=== PATIENT | male | born 1945 | race Caucasian/White ===

== ENCOUNTER 2019-07-05 01:10 | Inpatient (IN) ==
[2019-07-05] MEDS ORDERED: Albuterol 2.5 MG/3 ML NEBULIZER IH PRN (04:39)
[2019-07-05] MEDS ORDERED: *HR* LORazepam 2 MG/ML VIAL IVP PRN ×3 (04:39)
[2019-07-05] MEDS ORDERED: Naloxone 0.4 MG/ML INJ IVP PRN (04:39)
[2019-07-05] MEDS ORDERED: Ringers Solution, Lactated 1,000 ML IVC SCH (04:45)
[2019-07-05] MEDS ORDERED: Potassium Chloride Elixir 20 MEQ/15 ML UDC PO ONE (04:57)
[2019-07-05] MEDS: cefTRIAXone 2,000 MG in Water for inj. (sterile) 20 ML IVP SCH (05:24)
[2019-07-05] MEDS ORDERED: Vancomycin (wt based) 1,000 MG VIAL IVPB SCH (06:00)
[2019-07-05 06:14] LABS: Basophils # 0.1 K/mcL (0.0-0.2); Basophils % 0.4 %; Eosinophils # 0.1 K/mcL (0.0-0.6); Eosinophils % 0.7 %; Hematocrit 33.3 % (37.5-50.1); Hemoglobin 11.6 g/dL (12.9-16.9); Immature Granulocytes % 0.6 % (0-4); Immature Reticulocyte % 10.8 % (11.0-38.0); Lymphocytes # 0.8 K/mcL (0.6-4.6); Lymphocytes % 5.7 %; Mean Corpuscular HGB Conc 34.8 g/dL (31.6-35.5); Mean Corpuscular Hemoglobin 33.1 pg (28.0-33.3); Mean Corpuscular Volume 95.1 fL (83.0-100.0); Mean Platelet Volume 9.2 fL (9.4-12.4); Monocytes # 1.4 K/mcL (0.0-1.3); Monocytes % 10.1 %; Neutrophils # 11.5 K/mcL (1.6-8.9); Platelet Count 488 K/mcL (140-400); Red Cell Distribution Width 12.3 % (11.5-14.5); Retculocyte # 0.08 M/mcL (0.05-0.10); Reticulocyte % 2.2 % (1.6-2.8); Segmented Neutrophils % 82.5 %; White Blood Count 13.9 K/mcL (4.3-11.1)
[2019-07-05 06:36] LABS: BUN/Creatinine Ratio 16 (6-26); Blood Urea Nitrogen 12 mg/dL (8-23); Calcium 8.8 mg/dL (8.6-10.3); Carbon Dioxide 28 mEq/L (23-29); Chloride 87 mEq/L (98-107); Glucose 110 mg/dL (70-105); Osmolality,Calculated 260 (280-300); Potassium 3.8 mEq/L (3.5-5.1); Sodium 125 mEq/L (136-145); eGFR For African Americans > 60 (> 60); eGFR For Non-African Americans > 60 (> 60)
[2019-07-05 06:39] LABS: % Iron Saturation 9 % (20-55); Alanine Aminotransferase 14 Units/L (7-52); Albumin 3.8 g/dL (3.5-5.7); Albumin/Globulin Ratio 1.2 (1.1-2.2); Alkaline Phosphatase 59 Units/L (34-104); Aspartate Amino Transferase 20 Units/L (13-39); BUN/Creatinine Ratio 17 (6-26); Bilirubin,Total 0.8 mg/dL (0.3-1.0); Blood Urea Nitrogen 12 mg/dL (8-23); Calcium 8.9 mg/dL (8.6-10.3); Carbon Dioxide 28 mEq/L (23-29); Chloride 87 mEq/L (98-107); Globulin 3.1 g/dL (2.4-3.5); Glucose 110 mg/dL (70-105); Iron 20 mcg/dL (65-175); Magnesium 1.8 mg/dL (1.6-2.6); Osmolality,Calculated 260 (280-300); Phosphorous 2.7 mg/dL (2.7-4.5); Potassium 3.7 mEq/L (3.5-5.1); Sodium 125 mEq/L (136-145); Total Protein 6.9 g/dL (6.4-8.9); Transferrin 162 mg/dL (203-362); Troponin I < 0.03 ng/mL (< 0.04); eGFR For African Americans > 60 (> 60); eGFR For Non-African Americans > 60 (> 60)
[2019-07-05 06:54] LABS: Ferritin 267 ng/mL (20-250)
[2019-07-05] MEDS: Folic Acid 1 MG TABLET PO SCH (08:27)
[2019-07-05] MEDS: Thiamine (B-1) 100 MG TABLET PO SCH (08:27)
[2019-07-05] MEDS: Vitamin B Complex/Vit C/Vit E 1 EACH TABLET PO SCH (08:27)
[2019-07-05] MEDS: MetroNIDAZOLE 500 MG/100 ML 500 MG/100 ML BAG IVPB SCH ×3 (08:39→23:58)
[2019-07-05 09:38] LABS: C-Reactive Protein 104 mg/L (Less than 10)
[2019-07-05 10:54] LABS: Amphetamine Screen,Urine Negative ng/mL (Cutoff=1000); Barbiturate Screen,Urine Negative ng/mL (Cutoff=200); Benzodiazepines Screen,Urine Negative ng/mL (Cutoff=200); Cannabinoid Screen,Urine Negative ng/mL (Cutoff = 50); Cocaine Screen,Urine Negative ng/mL (Cutoff= 300); Opiate Screen,Urine Negative ng/mL (Cutoff=300); Phencyclidine Screen,Urine Negative ng/mL (Cutoff=25)
[2019-07-05 12:28] LABS: BUN/Creatinine Ratio 14 (6-26); Blood Urea Nitrogen 10 mg/dL (8-23); Carbon Dioxide 27 mEq/L (23-29); Chloride 91 mEq/L (98-107); Glucose 95 mg/dL (70-105); Osmolality,Calculated 261 (280-300); Potassium 3.9 mEq/L (3.5-5.1); Sodium 126 mEq/L (136-145); eGFR For African Americans > 60 (> 60); eGFR For Non-African Americans > 60 (> 60)
[2019-07-05 18:05] LABS: BUN/Creatinine Ratio 13 (6-26); Blood Urea Nitrogen 10 mg/dL (8-23); Calcium 9.4 mg/dL (8.6-10.3); Carbon Dioxide 28 mEq/L (23-29); Chloride 91 mEq/L (98-107); Glucose 119 mg/dL (70-105); Osmolality,Calculated 266 (280-300); Potassium 3.6 mEq/L (3.5-5.1); Sodium 128 mEq/L (136-145); Uric Acid 3.2 mg/dL (2.3-7.6); eGFR For African Americans > 60 (> 60); eGFR For Non-African Americans > 60 (> 60)
[2019-07-05 18:08] LABS: Bilirubin,Urine Small (Negative); Blood,Urine Small (Negative); Clarity,Urine Clear (Clear); Color,Urine Dark Yellow (Yellow); Glucose,Urine (UA) Normal (Normal); Ketones,Urine Negative (Negative); Leukocyte Esterase,Urine Trace (Negative); Nitrite,Urine Negative (Negative); PH,Urine 6.5 pH Units (5.0-8.0); Protein,Urine Trace mg/dL (Neg-Trace); Specific Gravity,Urine 1.025 (1.010-1.025); Urobilinogen,Urine >=8.0 mg/dL (Normal)
[2019-07-05 18:10] LABS: Bacteria,Urine None Seen per hpf (None-Few); Hyaline Casts,Urine None Seen per lpf (None-Few); Squamous Epithelial Cell,Urine Many per lpf (None-Few)
[2019-07-05] MEDS ORDERED: *HR* Heparin 5,000 UNIT/ML VIAL SQ SCH (22:00)
[2019-07-06 04:56] LABS: Basophils # 0.1 K/mcL (0.0-0.2); Basophils % 0.7 %; Eosinophils # 0.2 K/mcL (0.0-0.6); Eosinophils % 1.2 %; Hematocrit 34.6 % (37.5-50.1); Hemoglobin 11.5 g/dL (12.9-16.9); Immature Granulocytes % 1.5 % (0-4); Lymphocytes % 7.5 %; Mean Corpuscular HGB Conc 33.2 g/dL (31.6-35.5); Mean Corpuscular Hemoglobin 32.6 pg (28.0-33.3); Mean Platelet Volume 9.1 fL (9.4-12.4); Monocytes # 1.5 K/mcL (0.0-1.3); Neutrophils # 10.5 K/mcL (1.6-8.9); Platelet Count 480 K/mcL (140-400); Red Blood Count 3.53 M/mcL (4.19-5.50); Red Cell Distribution Width 12.4 % (11.5-14.5); Segmented Neutrophils % 78.1 %; White Blood Count 13.5 K/mcL (4.3-11.1)
[2019-07-06 05:41] LABS: Blood Urea Nitrogen 12 mg/dL (8-23); Chloride 93 mEq/L (98-107); Glucose 105 mg/dL (70-105); Osmolality,Calculated 268 (280-300); Potassium 3.7 mEq/L (3.5-5.1); Sodium 129 mEq/L (136-145)
[2019-07-06] MEDS: cefTRIAXone 2,000 MG in Water for inj. (sterile) 20 ML IVP SCH (06:32)
[2019-07-06 06:41] LABS: BUN/Creatinine Ratio 12 (6-26); Carbon Dioxide 26 mEq/L (23-29); eGFR For African Americans > 60 (> 60); eGFR For Non-African Americans > 60 (> 60)
[2019-07-06] MEDS: MetroNIDAZOLE 500 MG/100 ML 500 MG/100 ML BAG IVPB SCH ×3 (08:00→23:08)
[2019-07-06] MEDS: Folic Acid 1 MG TABLET PO SCH (08:01)
[2019-07-06] MEDS: Thiamine (B-1) 100 MG TABLET PO SCH (08:01)
[2019-07-06] MEDS: Vitamin B Complex/Vit C/Vit E 1 EACH TABLET PO SCH (08:01)
[2019-07-06] MEDS: Budesonide/Formoterol 160/4.5 1 PUFF INH IH SCH (20:09)
[2019-07-07] MEDS: cefTRIAXone 2,000 MG in Water for inj. (sterile) 20 ML IVP SCH (05:03)
[2019-07-07 05:39] LABS: Basophils # 0.1 K/mcL (0.0-0.2); Basophils % 0.7 %; Eosinophils # 0.2 K/mcL (0.0-0.6); Eosinophils % 1.8 %; Hematocrit 32.3 % (37.5-50.1); Hemoglobin 11.3 g/dL (12.9-16.9); Lymphocytes # 0.7 K/mcL (0.6-4.6); Lymphocytes % 7.1 %; Mean Corpuscular Hemoglobin 32.9 pg (28.0-33.3); Mean Corpuscular Volume 94.2 fL (83.0-100.0); Mean Platelet Volume 9.1 fL (9.4-12.4); Monocytes # 1.2 K/mcL (0.0-1.3); Monocytes % 12.3 %; Neutrophils # 7.7 K/mcL (1.6-8.9); Platelet Count 515 K/mcL (140-400); Red Blood Count 3.43 M/mcL (4.19-5.50); Red Cell Distribution Width 12.5 % (11.5-14.5); Segmented Neutrophils % 77.1 %
[2019-07-07 05:51] LABS: Calcium 9.2 mg/dL (8.6-10.3); Potassium 4.2 mEq/L (3.5-5.1)
[2019-07-07] MEDS: Budesonide/Formoterol 160/4.5 1 PUFF INH IH SCH ×2 (07:46→19:38)
[2019-07-07] MEDS ORDERED: 0.9 % Sodium Chloride 500 ML IVC SCH (08:30)
[2019-07-07] MEDS: Metoprolol XL (24 HR) Succ 50 MG TAB.ER.24H PO SCH (09:19)
[2019-07-07] MEDS: Folic Acid 1 MG TABLET PO SCH (09:19)
[2019-07-07] MEDS: Thiamine (B-1) 100 MG TABLET PO SCH (09:19)
[2019-07-07] MEDS: Cyanocobalamin (B-12) 1,000 MCG TABLET PO SCH (09:19)
[2019-07-07] MEDS: Aspirin Enteric Coated 81 MG Tablet PO SCH (09:19)
[2019-07-07] MEDS: Vitamin B Complex/Vit C/Vit E 1 EACH TABLET PO SCH (09:19)
[2019-07-07] MEDS: MetroNIDAZOLE 500 MG/100 ML 500 MG/100 ML BAG IVPB SCH (09:19)
[2019-07-08] MEDS: cefTRIAXone 2,000 MG in Water for inj. (sterile) 20 ML IVP SCH (06:09)
[2019-07-08 06:13] LABS: BUN/Creatinine Ratio 13 (6-26); Blood Urea Nitrogen 17 mg/dL (8-23); Calcium 9.4 mg/dL (8.6-10.3); Carbon Dioxide 29 mEq/L (23-29); Chloride 95 mEq/L (98-107); Glucose 100 mg/dL (70-105); Osmolality,Calculated 278 (280-300); Potassium 3.5 mEq/L (3.5-5.1); Sodium 133 mEq/L (136-145); eGFR For African Americans > 60 (> 60); eGFR For Non-African Americans 55 (> 60)
[2019-07-08] MEDS ORDERED: Aminoglycoside Consult 1 EACH MC ONE (07:30)
[2019-07-08] MEDS: Metoprolol XL (24 HR) Succ 50 MG TAB.ER.24H PO SCH ×2 (08:00→08:10)
[2019-07-08] MEDS: Thiamine (B-1) 100 MG TABLET PO SCH (08:00)
[2019-07-08] MEDS: Aspirin Enteric Coated 81 MG Tablet PO SCH (08:00)
[2019-07-08] MEDS: Vitamin B Complex/Vit C/Vit E 1 EACH TABLET PO SCH (08:01)
[2019-07-08] MEDS: Cyanocobalamin (B-12) 1,000 MCG TABLET PO SCH (08:01)
[2019-07-08] MEDS: Folic Acid 1 MG TABLET PO SCH (08:01)
[2019-07-08] MEDS: Budesonide/Formoterol 160/4.5 1 PUFF INH IH SCH ×2 (10:00→22:29)
[2019-07-08] MEDS: Doxycycline 100 MG in 0.9 % Sodium Chloride Mini Bag 100 ML IVPB SCH (17:48)
[2019-07-09 03:18] LABS: Calcium 9.2 mg/dL (8.6-10.3); Potassium 3.6 mEq/L (3.5-5.1)
[2019-07-09] MEDS: Doxycycline 100 MG in 0.9 % Sodium Chloride Mini Bag 100 ML IVPB SCH ×2 (05:13→18:10)
[2019-07-09] MEDS: Budesonide/Formoterol 160/4.5 1 PUFF INH IH SCH ×2 (07:55→21:53)
[2019-07-09] MEDS: Aspirin Enteric Coated 81 MG Tablet PO SCH (08:36)
[2019-07-09] MEDS: Metoprolol XL (24 HR) Succ 50 MG TAB.ER.24H PO SCH (08:36)
[2019-07-09] MEDS: Folic Acid 1 MG TABLET PO SCH (08:36)
[2019-07-09] MEDS: Thiamine (B-1) 100 MG TABLET PO SCH (08:36)
[2019-07-09] MEDS: Vitamin B Complex/Vit C/Vit E 1 EACH TABLET PO SCH (08:36)
[2019-07-09] MEDS: Cyanocobalamin (B-12) 1,000 MCG TABLET PO SCH (08:36)
[2019-07-10] MEDS ORDERED: amLODIPine 5 MG TABLET PO ONE (05:36)
[2019-07-10 05:54] LABS: BUN/Creatinine Ratio 15 (6-26); Blood Urea Nitrogen 19 mg/dL (8-23); Carbon Dioxide 26 mEq/L (23-29); Chloride 100 mEq/L (98-107); Glucose 108 mg/dL (70-105); Osmolality,Calculated 283 (280-300); Potassium 3.4 mEq/L (3.5-5.1); Sodium 135 mEq/L (136-145); eGFR For African Americans > 60 (> 60); eGFR For Non-African Americans 57 (> 60)
[2019-07-10] MEDS: Doxycycline 100 MG in 0.9 % Sodium Chloride Mini Bag 100 ML IVPB SCH (06:00)
[2019-07-10] MEDS: Cyanocobalamin (B-12) 1,000 MCG TABLET PO SCH (07:32)
[2019-07-10] MEDS: Aspirin Enteric Coated 81 MG Tablet PO SCH (07:32)
[2019-07-10] MEDS: Folic Acid 1 MG TABLET PO SCH (07:32)
[2019-07-10] MEDS: Metoprolol XL (24 HR) Succ 50 MG TAB.ER.24H PO SCH (07:32)
[2019-07-10] MEDS: Thiamine (B-1) 100 MG TABLET PO SCH (07:32)
[2019-07-10] MEDS: Vitamin B Complex/Vit C/Vit E 1 EACH TABLET PO SCH (07:32)
[2019-07-10] MEDS ORDERED: hydroCHLOROthiazide 25 MG TABLET PO SCH (09:00)
[2019-07-10] MEDS: Budesonide/Formoterol 160/4.5 1 PUFF INH IH SCH (11:33)
[2019-07-10 14:16] VITALS: BP 163/82
== END 2019-07-10 15:58 | DRG 603 ==
LOC: CDU → SUATTDRO 02:53 → 3ANU 16:04
PROVIDERS: ADMIT Family Medicine; ATTEND Internal Medicine

== ENCOUNTER 2021-02-19 01:26 | Inpatient (IN) ==
[2021-02-19 01:57] LABS: VBG HCO3 33 mEq/L (21-27); VBG PCO2 63 mmHg (41-51); VBG PH 7.33 pH Units (7.32-7.42); VBG PO2 44 mmHg (25-50)
[2021-02-19 02:21] LABS: BUN/Creatinine Ratio 16 (6-26); Blood Urea Nitrogen 12 mg/dL (8-23); Calcium 9.5 mg/dL (8.6-10.3); Carbon Dioxide 30 mEq/L (23-29); Chloride 89 mEq/L (98-107); Glucose 105 mg/dL (70-105); Osmolality,Calculated 266 (280-300); Potassium 3.7 mEq/L (3.5-5.1); Sodium 128 mEq/L (136-145); Troponin I < 0.03 ng/mL (< 0.04); eGFR For African Americans > 60 (> 60); eGFR For Non-African Americans > 60 (> 60)
[2021-02-19] MEDS ORDERED: Furosemide 40 MG/4 ML VIAL IVP ONE (02:33)
[2021-02-19 02:45] LABS: Hematocrit 42.1 % (37.5-50.1); Hemoglobin 13.7 g/dL (12.9-16.9); Mean Corpuscular HGB Conc 32.5 g/dL (31.6-35.5); Mean Corpuscular Hemoglobin 29.8 pg (28.0-33.3); Mean Corpuscular Volume 91.5 fL (83.0-100.0)
[2021-02-19 02:46] LABS: Platelet Count 307 K/mcL (140-400)
[2021-02-19 02:49] LABS: Basophils % 0.7 %; Eosinophils # 0.3 K/mcL (0.0-0.6); Eosinophils % 4.6 %; Immature Granulocytes % 0.3 % (0-4); Lymphocytes # 0.7 K/mcL (0.6-4.6); Lymphocytes % 12.3 %; Monocytes # 0.7 K/mcL (0.0-1.3); Monocytes % 12.1 %; Neutrophils # 4.2 K/mcL (1.6-8.9)
[2021-02-19] MEDS ORDERED: Ipratropium/Albuterol Neb 3 ML IH ONE (05:24)
[2021-02-19] MEDS ORDERED: methylPREDNISolone 125 MG/2 ML VIAL IVP ONE (05:25)
[2021-02-19] MEDS ORDERED: Ipratropium/Albuterol Neb 3 ML ONE (05:41)
[2021-02-19] MEDS ORDERED: Isovue-370 500 ML BOTTLE IVP ONE (05:58)
[2021-02-19] MEDS ORDERED: Ondansetron 4 MG/2 ML VIAL IVP PRN (07:59)
[2021-02-19] MEDS ORDERED: Melatonin 3 MG TABLET PO PRN (07:59)
[2021-02-19] MEDS ORDERED: Naloxone 0.4 MG/ML INJ IVP PRN (07:59)
[2021-02-19] MEDS ORDERED: Nitroglycerin 0.4 MG TAB.SUBL SL PRN (08:03)
[2021-02-19] MEDS ORDERED: *HR* LORazepam 2 MG/ML VIAL IVP PRN ×3 (08:31)
[2021-02-19 09:15] LABS: Alanine Aminotransferase 14 Units/L (7-52); Albumin/Globulin Ratio 1.2 (1.1-2.2); Alkaline Phosphatase 95 Units/L (34-104); Aspartate Amino Transferase 24 Units/L (13-39); Bilirubin,Direct 0.2 mg/dL (0.0-0.2); Bilirubin,Indirect 0.5 mg/dL (0.0-1.0); Bilirubin,Total 0.7 mg/dL (0.3-1.0); Ethanol < 10 mg/dL (Less than 10); Globulin 3.3 g/dL (2.4-3.5); Total Protein 7.3 g/dL (6.4-8.9)
[2021-02-19 09:27] LABS: Thyroid Stimulating Hormone 1.354 mcIU/mL (0.340-5.600)
[2021-02-19] MEDS: Folic Acid 1 MG TABLET PO SCH (11:32)
[2021-02-19] MEDS: predniSONE 20 MG TABLET PO SCH (11:32)
[2021-02-19] MEDS: Thiamine (B-1) 100 MG TABLET PO SCH (11:32)
[2021-02-19] MEDS: Ipratropium/Albuterol Neb 3 ML IH SCH ×3 (11:43→21:39)
[2021-02-19] MEDS ORDERED: Ipratropium/Albuterol Neb 3 ML IH SCH (12:00)
[2021-02-19] MEDS: *HR* Heparin 5,000 UNIT/ML VIAL SQ SCH (17:15)
[2021-02-19] MEDS: Furosemide 20 MG/2 ML VIAL IVP SCH (17:15)
[2021-02-19 17:33] LABS: Adenovirus Not Detected (Not Detect); Bordetella Pertussis Not Detected (Not Detect); Chlamydophila pneumoniae Not Detected (Not Detect); Coronavirus 229E Not Detected (Not Detect); Coronavirus HKU1 Not Detected (Not Detect); Coronavirus NL63 Not Detected (Not Detect); Coronavirus OC43 Not Detected (Not Detect); Human Metapneumovirus Not Detected (Not Detect); Human Rhinovirus/Enterovirus Not Detected (Not Detect); Influenza A Subtype 2009 H1 Not Detected (Not Detect); Influenza B Not Detected (Not Detect); Mycoplasma pneumoniae Not Detected (Not Detect); Parainfluenza Virus 1 Not Detected (Not Detect); Parainfluenza Virus 2 Not Detected (Not Detect); Parainfluenza Virus 3 Not Detected (Not Detect); Parainfluenza Virus 4 Not Detected (Not Detect); Respiratory Syncytial Virus Not Detected (Not Detect); SARS-CoV-2 Not Detected (Not Detect)
[2021-02-20 03:04] LABS: Basophils % 0.2 %; Hematocrit 39.6 % (37.5-50.1); Hemoglobin 12.8 g/dL (12.9-16.9); Immature Granulocytes % 0.6 % (0-4); Lymphocytes # 0.5 K/mcL (0.6-4.6); Lymphocytes % 9.7 %; Mean Corpuscular HGB Conc 32.3 g/dL (31.6-35.5); Mean Corpuscular Hemoglobin 29.9 pg (28.0-33.3); Mean Corpuscular Volume 92.5 fL (83.0-100.0); Mean Platelet Volume 9.7 fL (9.4-12.4); Monocytes # 0.5 K/mcL (0.0-1.3); Monocytes % 9.9 %; Platelet Count 306 K/mcL (140-400); Red Blood Count 4.28 M/mcL (4.19-5.50); Red Cell Distribution Width 14.1 % (11.5-14.5); Segmented Neutrophils % 79.6 %
[2021-02-20 03:22] LABS: BUN/Creatinine Ratio 22 (6-26); Blood Urea Nitrogen 26 mg/dL (8-23); Calcium 9.5 mg/dL (8.6-10.3); Carbon Dioxide 35 mEq/L (23-29); Chloride 88 mEq/L (98-107); Glucose 126 mg/dL (70-105); Osmolality,Calculated 278 (280-300); Potassium 3.9 mEq/L (3.5-5.1); Sodium 131 mEq/L (136-145); eGFR For African Americans > 60 (> 60); eGFR For Non-African Americans > 60 (> 60)
[2021-02-20] MEDS: Ipratropium/Albuterol Neb 3 ML IH SCH ×4 (03:57→22:40)
[2021-02-20] MEDS: *HR* Heparin 5,000 UNIT/ML VIAL SQ SCH ×2 (05:19→17:02)
[2021-02-20 08:51] LABS: Bilirubin,Urine Negative (Negative); Blood,Urine Negative (Negative); Clarity,Urine Turbid (Clear); Color,Urine Yellow (Yellow); Glucose,Urine (UA) Normal (Normal); Ketones,Urine Negative (Negative); Leukocyte Esterase,Urine Small (Negative); Mucus,Urine Few per lpf (None-Few); Nitrite,Urine Negative (Negative); Protein,Urine Trace mg/dL (Neg-Trace); RBC,Urine 0-3 per hpf (0-3); Specific Gravity,Urine 1.025 (1.010-1.025); Squamous Epithelial Cell,Urine Few per hpf (None-Few); Urobilinogen,Urine Normal (Normal); WBC,Urine 15-30 per hpf (0-3)
[2021-02-20] MEDS: predniSONE 20 MG TABLET PO SCH (09:18)
[2021-02-20] MEDS: Folic Acid 1 MG TABLET PO SCH (09:18)
[2021-02-20] MEDS: Thiamine (B-1) 100 MG TABLET PO SCH (09:18)
[2021-02-20] MEDS: Furosemide 20 MG/2 ML VIAL IVP SCH ×2 (09:18→20:16)
[2021-02-20 10:00] LABS: Amphetamine Screen,Urine Negative ng/mL (Cutoff=1000); Barbiturate Screen,Urine Negative ng/mL (Cutoff=200); Benzodiazepines Screen,Urine Negative ng/mL (Cutoff=200); Cannabinoid Screen,Urine Negative ng/mL (Cutoff = 50); Cocaine Screen,Urine Negative ng/mL (Cutoff= 300); Opiate Screen,Urine Negative ng/mL (Cutoff=300); Phencyclidine Screen,Urine Negative ng/mL (Cutoff=25)
[2021-02-20] MEDS ORDERED: Perflutren Lipid Microsphere 1.3 ML in 0.9 % Sodium Chloride 8.7 ML IVP PRN (12:32)
[2021-02-20] MEDS: cefTRIAXone 1,000 MG in Water for inj. (sterile) 10 ML IVP SCH (13:24)
[2021-02-21] MEDS: Ipratropium/Albuterol Neb 3 ML IH SCH ×5 (03:32→22:07)
[2021-02-21] MEDS: *HR* Heparin 5,000 UNIT/ML VIAL SQ SCH ×2 (05:34→16:31)
[2021-02-21 05:35] LABS: Basophils % 0.1 %; Eosinophils % 0.3 %; Hematocrit 39.3 % (37.5-50.1); Hemoglobin 13.1 g/dL (12.9-16.9); Immature Granulocytes % 0.4 % (0-4); Lymphocytes # 1.1 K/mcL (0.6-4.6); Lymphocytes % 14.4 %; Mean Corpuscular HGB Conc 33.3 g/dL (31.6-35.5); Mean Corpuscular Hemoglobin 30.8 pg (28.0-33.3); Mean Corpuscular Volume 92.3 fL (83.0-100.0); Mean Platelet Volume 8.9 fL (9.4-12.4); Monocytes # 0.8 K/mcL (0.0-1.3); Monocytes % 11.1 %; Neutrophils # 5.5 K/mcL (1.6-8.9); Platelet Count 317 K/mcL (140-400); Red Blood Count 4.26 M/mcL (4.19-5.50); Red Cell Distribution Width 14.2 % (11.5-14.5); Segmented Neutrophils % 73.7 %; White Blood Count 7.5 K/mcL (4.3-11.1)
[2021-02-21 05:43] LABS: BUN/Creatinine Ratio 31 (6-26); Blood Urea Nitrogen 33 mg/dL (8-23); Calcium 9.3 mg/dL (8.6-10.3); Carbon Dioxide 36 mEq/L (23-29); Chloride 89 mEq/L (98-107); Glucose 94 mg/dL (70-105); Osmolality,Calculated 279 (280-300); Sodium 131 mEq/L (136-145); eGFR For African Americans > 60 (> 60); eGFR For Non-African Americans > 60 (> 60)
[2021-02-21] MEDS: Thiamine (B-1) 100 MG TABLET PO SCH (09:49)
[2021-02-21] MEDS: Furosemide 20 MG/2 ML VIAL IVP SCH ×2 (09:49→18:19)
[2021-02-21] MEDS: Folic Acid 1 MG TABLET PO SCH (09:49)
[2021-02-21] MEDS: predniSONE 20 MG TABLET PO SCH (09:49)
[2021-02-21] MEDS: cefTRIAXone 1,000 MG in Water for inj. (sterile) 10 ML IVP SCH (13:54)
[2021-02-21] MEDS: amLODIPine 5 MG TABLET PO SCH (13:54)
[2021-02-21] MEDS ORDERED: polyethylene glycoL 3350 17 GM POWD.PACK PO PRN (17:58)
[2021-02-21] MEDS ORDERED: Furosemide 40 MG/4 ML VIAL IVP ONE (18:19)
[2021-02-21] MEDS ORDERED: Furosemide 40 MG/4 ML VIAL ONE (18:33)
[2021-02-22 03:15] LABS: BUN/Creatinine Ratio 40 (6-26); Blood Urea Nitrogen 38 mg/dL (8-23); Calcium 8.9 mg/dL (8.6-10.3); Carbon Dioxide 39 mEq/L (23-29); Chloride 88 mEq/L (98-107); Glucose 108 mg/dL (70-105); Osmolality,Calculated 284 (280-300); Potassium 3.6 mEq/L (3.5-5.1); Sodium 132 mEq/L (136-145); eGFR For African Americans > 60 (> 60); eGFR For Non-African Americans > 60 (> 60)
[2021-02-22] MEDS: Ipratropium/Albuterol Neb 3 ML IH SCH ×4 (03:30→21:57)
[2021-02-22] MEDS: *HR* Heparin 5,000 UNIT/ML VIAL SQ SCH ×2 (05:45→15:48)
[2021-02-22] MEDS: Azithromycin 250 MG TABLET PO SCH (07:47)
[2021-02-22] MEDS: predniSONE 20 MG TABLET PO SCH (07:47)
[2021-02-22] MEDS: amLODIPine 5 MG TABLET PO SCH (07:48)
[2021-02-22] MEDS: Thiamine (B-1) 100 MG TABLET PO SCH (07:48)
[2021-02-22] MEDS: Folic Acid 1 MG TABLET PO SCH (07:48)
[2021-02-22] MEDS: Furosemide 20 MG/2 ML VIAL IVP SCH (07:49)
[2021-02-22 11:38] LABS: Basophils % 0.1 %; Eosinophils % 0.1 %; Immature Granulocytes % 0.5 % (0-4); Lymphocytes # 0.6 K/mcL (0.6-4.6); Lymphocytes % 7.1 %; Mean Corpuscular HGB Conc 32.5 g/dL (31.6-35.5); Mean Corpuscular Hemoglobin 30.2 pg (28.0-33.3); Mean Platelet Volume 8.8 fL (9.4-12.4); Monocytes # 0.5 K/mcL (0.0-1.3); Monocytes % 5.9 %; Neutrophils # 7.6 K/mcL (1.6-8.9); Platelet Count 323 K/mcL (140-400); Red Cell Distribution Width 14.1 % (11.5-14.5); Segmented Neutrophils % 86.3 %; White Blood Count 8.8 K/mcL (4.3-11.1)
[2021-02-22] MEDS: cefTRIAXone 1,000 MG in Water for inj. (sterile) 10 ML IVP SCH (12:26)
[2021-02-23] MEDS: Ipratropium/Albuterol Neb 3 ML IH SCH ×4 (04:10→22:21)
[2021-02-23 05:03] LABS: Basophils % 0.4 %; Eosinophils # 0.1 K/mcL (0.0-0.6); Eosinophils % 0.9 %; Hematocrit 40.7 % (37.5-50.1); Hemoglobin 12.8 g/dL (12.9-16.9); Immature Granulocytes % 0.7 % (0-4); Lymphocytes # 1.6 K/mcL (0.6-4.6); Lymphocytes % 21.4 %; Mean Corpuscular HGB Conc 31.4 g/dL (31.6-35.5); Mean Corpuscular Hemoglobin 29.7 pg (28.0-33.3); Mean Corpuscular Volume 94.4 fL (83.0-100.0); Mean Platelet Volume 9.3 fL (9.4-12.4); Monocytes # 0.7 K/mcL (0.0-1.3); Monocytes % 9.9 %; Platelet Count 301 K/mcL (140-400); Red Blood Count 4.31 M/mcL (4.19-5.50); Red Cell Distribution Width 14.2 % (11.5-14.5); Segmented Neutrophils % 66.7 %; White Blood Count 7.5 K/mcL (4.3-11.1)
[2021-02-23 05:24] LABS: BUN/Creatinine Ratio 48 (6-26); Blood Urea Nitrogen 42 mg/dL (8-23); Calcium 9.4 mg/dL (8.6-10.3); Carbon Dioxide 36 mEq/L (23-29); Chloride 89 mEq/L (98-107); Glucose 94 mg/dL (70-105); Osmolality,Calculated 284 (280-300); Potassium 3.5 mEq/L (3.5-5.1); Sodium 132 mEq/L (136-145); eGFR For African Americans > 60 (> 60); eGFR For Non-African Americans > 60 (> 60)
[2021-02-23] MEDS: Azithromycin 250 MG TABLET PO SCH (08:35)
[2021-02-23] MEDS: predniSONE 20 MG TABLET PO SCH (08:35)
[2021-02-23] MEDS: amLODIPine 5 MG TABLET PO SCH (08:36)
[2021-02-23] MEDS: Thiamine (B-1) 100 MG TABLET PO SCH (08:36)
[2021-02-23] MEDS: Folic Acid 1 MG TABLET PO SCH (08:36)
[2021-02-23] MEDS: *HR* Heparin 5,000 UNIT/ML VIAL SQ SCH ×2 (08:37→17:38)
[2021-02-23] MEDS: Furosemide 20 MG/2 ML VIAL IVP SCH (08:37)
[2021-02-23] MEDS: Cefdinir 300 MG CAPSULE PO SCH ×2 (10:55→20:00)
[2021-02-24] MEDS: Ipratropium/Albuterol Neb 3 ML IH SCH ×4 (03:37→21:57)
[2021-02-24] MEDS: *HR* Heparin 5,000 UNIT/ML VIAL SQ SCH ×2 (04:47→17:19)
[2021-02-24 06:14] LABS: BUN/Creatinine Ratio 47 (6-26); Blood Urea Nitrogen 41 mg/dL (8-23); Calcium 9.5 mg/dL (8.6-10.3); Carbon Dioxide 37 mEq/L (23-29); Chloride 92 mEq/L (98-107); Glucose 104 mg/dL (70-105); Osmolality,Calculated 288 (280-300); Potassium 3.8 mEq/L (3.5-5.1); Sodium 134 mEq/L (136-145); eGFR For African Americans > 60 (> 60); eGFR For Non-African Americans > 60 (> 60)
[2021-02-24] MEDS: Cefdinir 300 MG CAPSULE PO SCH ×2 (08:59→20:05)
[2021-02-24] MEDS: predniSONE 20 MG TABLET PO SCH (08:59)
[2021-02-24] MEDS: Folic Acid 1 MG TABLET PO SCH (09:03)
[2021-02-24] MEDS: Thiamine (B-1) 100 MG TABLET PO SCH (09:03)
[2021-02-24] MEDS: amLODIPine 5 MG TABLET PO SCH (09:03)
[2021-02-24] MEDS: Azithromycin 250 MG TABLET PO SCH (09:04)
[2021-02-24] MEDS: Furosemide 40 MG TABLET PO SCH (09:04)
[2021-02-25] MEDS: Ipratropium/Albuterol Neb 3 ML IH SCH ×3 (03:32→15:44)
[2021-02-25 03:47] LABS: Hematocrit 36.1 % (37.5-50.1); Hemoglobin 11.6 g/dL (12.9-16.9); Mean Corpuscular HGB Conc 32.1 g/dL (31.6-35.5); Mean Corpuscular Hemoglobin 30.1 pg (28.0-33.3); Mean Corpuscular Volume 93.5 fL (83.0-100.0); Mean Platelet Volume 9.3 fL (9.4-12.4); Platelet Count 336 K/mcL (140-400); Red Blood Count 3.86 M/mcL (4.19-5.50); Red Cell Distribution Width 14.6 % (11.5-14.5); White Blood Count 8.4 K/mcL (4.3-11.1)
[2021-02-25 04:04] LABS: BUN/Creatinine Ratio 55 (6-26); Blood Urea Nitrogen 49 mg/dL (8-23); Calcium 9.2 mg/dL (8.6-10.3); Carbon Dioxide 35 mEq/L (23-29); Chloride 91 mEq/L (98-107); Glucose 98 mg/dL (70-105); Osmolality,Calculated 287 (280-300); Potassium 4.1 mEq/L (3.5-5.1); Sodium 132 mEq/L (136-145); eGFR For African Americans > 60 (> 60); eGFR For Non-African Americans > 60 (> 60)
[2021-02-25] MEDS: *HR* Heparin 5,000 UNIT/ML VIAL SQ SCH (05:25)
[2021-02-25] MEDS: Thiamine (B-1) 100 MG TABLET PO SCH (08:31)
[2021-02-25] MEDS: Furosemide 40 MG TABLET PO SCH (08:32)
[2021-02-25] MEDS: Cefdinir 300 MG CAPSULE PO SCH (08:32)
[2021-02-25] MEDS: Folic Acid 1 MG TABLET PO SCH (08:32)
[2021-02-25] MEDS: predniSONE 20 MG TABLET PO SCH (08:32)
[2021-02-25] MEDS: Azithromycin 250 MG TABLET PO SCH (08:32)
[2021-02-25] MEDS ORDERED: amLODIPine 5 MG TABLET PO SCH (09:00)
[2021-02-25 15:02] LABS: Adenovirus Not Detected (Not Detect); Bordetella Pertussis Not Detected (Not Detect); Chlamydophila pneumoniae Not Detected (Not Detect); Coronavirus 229E Not Detected (Not Detect); Coronavirus HKU1 Not Detected (Not Detect); Coronavirus NL63 Not Detected (Not Detect); Coronavirus OC43 Not Detected (Not Detect); Human Metapneumovirus Not Detected (Not Detect); Human Rhinovirus/Enterovirus Not Detected (Not Detect); Influenza A Subtype 2009 H1 Not Detected (Not Detect); Influenza B Not Detected (Not Detect); Mycoplasma pneumoniae Not Detected (Not Detect); Parainfluenza Virus 1 Not Detected (Not Detect); Parainfluenza Virus 2 Not Detected (Not Detect); Parainfluenza Virus 3 Not Detected (Not Detect); Parainfluenza Virus 4 Not Detected (Not Detect); Respiratory Syncytial Virus Not Detected (Not Detect); SARS-CoV-2 Not Detected (Not Detect)
[2021-02-25 15:49] VITALS: O2SAT 91
[2021-02-25 16:47] VITALS: BP 108/70; PULSE 102; TEMP 98.1
== END 2021-02-25 18:50 | DRG 291 ==
LOC: EMEROOARM 01:26 → 2ANU 01:26 → MERGE 09:01 → SUATTDRO 09:01 → 2ANU 10:09
PROVIDERS: ADMIT Student in an Organized Health Care Education/Training Program; ATTEND General Practice

== ENCOUNTER 2021-05-12 02:20 | Inpatient (IN) ==
[2021-05-12] MEDS ORDERED: Isovue-370 500 ML BOTTLE IVP ONE (03:06)
[2021-05-12] MEDS ORDERED: 0.9 % Sodium Chloride 1,000 ML IV ONE (03:07)
[2021-05-12 03:34] LABS: Basophils # 0.1 K/mcL (0.0-0.2); Basophils % 0.8 %; Eosinophils # 0.3 K/mcL (0.0-0.6); Eosinophils % 3.4 %; Hemoglobin 12.6 g/dL (12.9-16.9); Immature Granulocytes % 2.3 % (0-4); Lymphocytes % 11.6 %; Mean Corpuscular HGB Conc 32.3 g/dL (31.6-35.5); Mean Corpuscular Hemoglobin 30.4 pg (28.0-33.3); Mean Corpuscular Volume 94.2 fL (83.0-100.0); Mean Platelet Volume 9.5 fL (9.4-12.4); Monocytes # 0.7 K/mcL (0.0-1.3); Monocytes % 7.7 %; Neutrophils # 6.6 K/mcL (1.6-8.9); Platelet Count 370 K/mcL (140-400); Red Blood Count 4.14 M/mcL (4.19-5.50); Red Cell Distribution Width 14.3 % (11.5-14.5); Segmented Neutrophils % 74.2 %; White Blood Count 8.9 K/mcL (4.3-11.1)
[2021-05-12 03:42] LABS: Bacteria,Urine Few per hpf (None-Few); Bilirubin,Urine Negative (Negative); Blood,Urine Negative (Negative); Clarity,Urine Clear (Clear); Color,Urine Light-Yellow (Yellow); Glucose,Urine (UA) Normal (Normal); Ketones,Urine Negative (Negative); Leukocyte Esterase,Urine Moderate (Negative); Nitrite,Urine Positive (Negative); Protein,Urine 30 mg/dL (Neg-Trace); RBC,Urine 0-3 per hpf (0-3); Specific Gravity,Urine 1.011 (1.010-1.025); Squamous Epithelial Cell,Urine Few per hpf (None-Few); Urobilinogen,Urine Normal (Normal); WBC,Urine 15-30 per hpf (0-3)
[2021-05-12 03:49] LABS: Amphetamine Screen,Urine Negative ng/mL (Cutoff=1000); Barbiturate Screen,Urine Negative ng/mL (Cutoff=200); Benzodiazepines Screen,Urine Negative ng/mL (Cutoff=200); Cannabinoid Screen,Urine Negative ng/mL (Cutoff = 50); Cocaine Screen,Urine Negative ng/mL (Cutoff= 300); Opiate Screen,Urine Negative ng/mL (Cutoff=300); Phencyclidine Screen,Urine Negative ng/mL (Cutoff=25)
[2021-05-12 03:57] LABS: Alanine Aminotransferase 16 Units/L (7-52); Albumin 4.2 g/dL (3.5-5.7); Albumin/Globulin Ratio 1.3 (1.1-2.2); Alkaline Phosphatase 72 Units/L (34-104); Aspartate Amino Transferase 22 Units/L (13-39); BUN/Creatinine Ratio 8 (6-26); Bilirubin,Direct 0.1 mg/dL (0.0-0.2); Bilirubin,Indirect 0.3 mg/dL (0.0-1.0); Bilirubin,Total 0.4 mg/dL (0.3-1.0); Blood Urea Nitrogen 13 mg/dL (8-23); Calcium 9.8 mg/dL (8.6-10.3); Carbon Dioxide 32 mEq/L (23-29); Chloride 93 mEq/L (98-107); Creatine Kinase 140 Units/L (30-223); Ethanol < 10 mg/dL (Less than 10); Globulin 3.3 g/dL (2.4-3.5); Glucose 94 mg/dL (70-105); Osmolality,Calculated 272 (280-300); Potassium 4.4 mEq/L (3.5-5.1); Sodium 131 mEq/L (136-145); Total Protein 7.5 g/dL (6.4-8.9); Troponin I < 0.03 ng/mL (< 0.04); eGFR For African Americans 53 (> 60); eGFR For Non-African Americans 44 (> 60)
[2021-05-12] MEDS ORDERED: cefTRIAXone 1,000 MG in 0.9 % Sodium Chloride Mini Bag 100 ML IVPB ONE (05:02)
[2021-05-12] MEDS ORDERED: Ondansetron 4 MG/2 ML VIAL IVP PRN (07:55)
[2021-05-12] MEDS ORDERED: Melatonin 3 MG TABLET PO PRN (07:55)
[2021-05-12] MEDS ORDERED: Acetaminophen 325 MG TABLET PO PRN (07:55)
[2021-05-12] MEDS ORDERED: polyethylene glycoL 3350 17 GM POWD.PACK PO PRN (07:57)
[2021-05-12] MEDS ORDERED: Nicotine 2 MG GUM BC PRN (08:01)
[2021-05-12] MEDS: amLODIPine 5 MG TABLET PO SCH (09:50)
[2021-05-12] MEDS: Aspirin Enteric Coated 81 MG Tablet PO SCH (09:50)
[2021-05-12] MEDS: Nicotine 14 MG PATCH.TD24 TD SCH (09:50)
[2021-05-12] MEDS: Folic Acid 1 MG TABLET PO SCH (09:51)
[2021-05-12] MEDS: Thiamine (B-1) 100 MG TABLET PO SCH (09:51)
[2021-05-12] MEDS: *HR* Heparin 5,000 UNIT/ML VIAL SQ SCH ×2 (09:51→18:28)
[2021-05-12] MEDS: Budesonide/Formoterol 160/4.5 1 PUFF INH IH SCH ×2 (11:02→20:36)
[2021-05-12] MEDS ORDERED: methylPREDNISolone 125 MG/2 ML VIAL IVP ONE (21:18)
[2021-05-12] MEDS ORDERED: Furosemide 20 MG/2 ML VIAL IVP ONE ×2 (21:19→21:24)
[2021-05-12] MEDS ORDERED: *HR* LORazepam 2 MG/ML VIAL IVP ONE (21:21)
[2021-05-12] MEDS ORDERED: methylPREDNISolone 125 MG/2 ML VIAL ONE (21:24)
[2021-05-12] MEDS ORDERED: *HR* Labetalol 20 MG/4 ML SYRINGE IVP ONE ×2 (21:29→21:30)
[2021-05-12] MEDS ORDERED: *HR* LORazepam 2 MG/ML VIAL IVP PRN ×3 (21:40)
[2021-05-12] MEDS: Levalbuterol Neb 1.25 MG/3 ML IH SCH (22:00)
[2021-05-12 22:22] LABS: ABG Base Excess 4 mEq/L (-2 to 3); ABG HCO3 33 mEq/L (21-27); ABG Oxygen Saturation 93 % (95-98); ABG PCO2 69 mmHg (35-45); ABG PH 7.29 pH Units (7.32-7.45); ABG PO2 79 mmHg (85-104); ABG TCO2 35 mEq/L (20-26)
[2021-05-13] MEDS: Levalbuterol Neb 1.25 MG/3 ML IH SCH ×6 (00:09→20:57)
[2021-05-13 01:04] LABS: Red Cell Distribution Width 14.5 % (11.5-14.5)
[2021-05-13 01:05] LABS: Hematocrit 36.8 % (37.5-50.1); Hemoglobin 11.5 g/dL (12.9-16.9); Mean Corpuscular HGB Conc 31.3 g/dL (31.6-35.5); Mean Corpuscular Hemoglobin 29.6 pg (28.0-33.3); Mean Corpuscular Volume 94.6 fL (83.0-100.0); Mean Platelet Volume 10.3 fL (9.4-12.4); Platelet Count 362 K/mcL (140-400); Red Blood Count 3.89 M/mcL (4.19-5.50)
[2021-05-13 02:02] LABS: BUN/Creatinine Ratio 13 (6-26); Blood Urea Nitrogen 11 mg/dL (8-23); Calcium 9.3 mg/dL (8.6-10.3); Carbon Dioxide 33 mEq/L (23-29); Chloride 94 mEq/L (98-107); Glucose 116 mg/dL (70-105); Magnesium 1.6 mg/dL (1.6-2.6); Osmolality,Calculated 274 (280-300); Potassium 4.3 mEq/L (3.5-5.1); Sodium 132 mEq/L (136-145); eGFR For African Americans > 60 (> 60); eGFR For Non-African Americans > 60 (> 60)
[2021-05-13] MEDS: *HR* Heparin 5,000 UNIT/ML VIAL SQ SCH ×2 (05:28→17:35)
[2021-05-13] MEDS ORDERED: cefTRIAXone 1,000 MG in Water for inj. (sterile) 10 ML IVP SCH (09:00)
[2021-05-13] MEDS: Budesonide/Formoterol 160/4.5 1 PUFF INH IH SCH ×2 (09:04→20:57)
[2021-05-13] MEDS: Aspirin Enteric Coated 81 MG Tablet PO SCH (09:36)
[2021-05-13] MEDS: Nicotine 14 MG PATCH.TD24 TD SCH (09:36)
[2021-05-13] MEDS: Thiamine (B-1) 100 MG TABLET PO SCH (09:36)
[2021-05-13] MEDS: Folic Acid 1 MG TABLET PO SCH (09:36)
[2021-05-13] MEDS: amLODIPine 5 MG TABLET PO SCH (09:36)
[2021-05-13 10:00] LABS: Hemoglobin 11.6 g/dL (12.9-16.9); Red Cell Distribution Width 14.6 % (11.5-14.5)
[2021-05-13 10:02] LABS: Basophils % 0.1 %; Hematocrit 36.1 % (37.5-50.1); Immature Granulocytes % 0.8 % (0-4); Lymphocytes # 0.6 K/mcL (0.6-4.6); Lymphocytes % 2.2 %; Mean Corpuscular HGB Conc 32.1 g/dL (31.6-35.5); Mean Corpuscular Hemoglobin 30.8 pg (28.0-33.3); Mean Corpuscular Volume 95.8 fL (83.0-100.0); Mean Platelet Volume 11.1 fL (9.4-12.4); Monocytes # 0.4 K/mcL (0.0-1.3); Monocytes % 1.4 %; Neutrophils # 25.8 K/mcL (1.6-8.9); Platelet Count 322 K/mcL (140-400); Red Blood Count 3.77 M/mcL (4.19-5.50); Segmented Neutrophils % 95.5 %
[2021-05-13 10:28] LABS: Platelet Estimate Normal (Normal)
[2021-05-13 11:00] LABS: ABG Base Excess 5 mEq/L (-2 to 3); ABG HCO3 32 mEq/L (21-27); ABG Oxygen Saturation 88 % (95-98); ABG PCO2 57 mmHg (35-45); ABG PH 7.36 pH Units (7.32-7.45); ABG PO2 59 mmHg (85-104); ABG TCO2 34 mEq/L (20-26)
[2021-05-13] MEDS ORDERED: 0.9 % Sodium Chloride 250 ML ONE (15:52)
[2021-05-13] MEDS: Piperacillin/Tazobactam 3.375 GM in 0.9 % Sodium Chloride Mini Bag 100 ML IVPB SCH ×2 (15:59→23:21)
[2021-05-13] MEDS ORDERED: Levalbuterol Neb 1.25 MG/3 ML IH SCH (21:20)
[2021-05-13] MEDS: 0.9 % Sodium Chloride 1,000 ML IVC SCH (23:17)
[2021-05-14] MEDS: Levalbuterol Neb 1.25 MG/3 ML IH SCH ×7 (00:17→23:23)
[2021-05-14] MEDS: *HR* Heparin 5,000 UNIT/ML VIAL SQ SCH ×2 (05:47→16:20)
[2021-05-14 06:37] LABS: Basophils % 0.2 %; Eosinophils % 0.1 %; Hematocrit 34.4 % (37.5-50.1); Hemoglobin 10.9 g/dL (12.9-16.9); Immature Granulocytes % 1.2 % (0-4); Mean Corpuscular HGB Conc 31.7 g/dL (31.6-35.5); Mean Corpuscular Hemoglobin 30.6 pg (28.0-33.3); Mean Corpuscular Volume 96.6 fL (83.0-100.0); Mean Platelet Volume 10.3 fL (9.4-12.4); Monocytes # 1.2 K/mcL (0.0-1.3); Monocytes % 6.1 %; Neutrophils # 17.3 K/mcL (1.6-8.9); Platelet Count 370 K/mcL (140-400); Red Blood Count 3.56 M/mcL (4.19-5.50); Red Cell Distribution Width 14.4 % (11.5-14.5); Segmented Neutrophils % 87.4 %; White Blood Count 19.8 K/mcL (4.3-11.1)
[2021-05-14 06:57] LABS: BUN/Creatinine Ratio 26 (6-26); Blood Urea Nitrogen 24 mg/dL (8-23); Calcium 9.4 mg/dL (8.6-10.3); Carbon Dioxide 33 mEq/L (23-29); Chloride 96 mEq/L (98-107); Glucose 108 mg/dL (70-105); Magnesium 1.8 mg/dL (1.6-2.6); Osmolality,Calculated 281 (280-300); Phosphorous 2.8 mg/dL (2.7-4.5); Potassium 4.3 mEq/L (3.5-5.1); Sodium 133 mEq/L (136-145); eGFR For African Americans > 60 (> 60); eGFR For Non-African Americans > 60 (> 60)
[2021-05-14] MEDS: Nicotine 14 MG PATCH.TD24 TD SCH (07:49)
[2021-05-14] MEDS: Aspirin Enteric Coated 81 MG Tablet PO SCH (07:50)
[2021-05-14] MEDS: Piperacillin/Tazobactam 3.375 GM in 0.9 % Sodium Chloride Mini Bag 100 ML IVPB SCH (07:50)
[2021-05-14] MEDS: Folic Acid 1 MG TABLET PO SCH (07:50)
[2021-05-14] MEDS: Thiamine (B-1) 100 MG TABLET PO SCH (07:50)
[2021-05-14] MEDS: amLODIPine 5 MG TABLET PO SCH (07:50)
[2021-05-14] MEDS: 0.9 % Sodium Chloride 1,000 ML IVC SCH (07:51)
[2021-05-14] MEDS: Budesonide/Formoterol 160/4.5 1 PUFF INH IH SCH ×2 (08:25→20:00)
[2021-05-14] MEDS: Ertapenem 1,000 MG in 0.9 % Sodium Chloride Mini Bag 100 ML IVPB SCH (09:44)
[2021-05-14] MEDS ORDERED: NON-FORMULARY MEDICATION 1 EACH EACH (Fluticasone/Salmeterol [Advair 500-50 Diskus] 1 EACH IH SCH (21:00)
[2021-05-15] MEDS: Levalbuterol Neb 1.25 MG/3 ML IH SCH ×6 (03:52→23:55)
[2021-05-15] MEDS: *HR* Heparin 5,000 UNIT/ML VIAL SQ SCH ×2 (04:53→16:57)
[2021-05-15 06:11] LABS: Basophils # 0.1 K/mcL (0.0-0.2); Basophils % 0.7 %; Eosinophils # 0.2 K/mcL (0.0-0.6); Eosinophils % 1.5 %; Hematocrit 34.9 % (37.5-50.1); Hemoglobin 10.8 g/dL (12.9-16.9); Immature Granulocytes % 2.2 % (0-4); Lymphocytes # 1.4 K/mcL (0.6-4.6); Lymphocytes % 12.2 %; Mean Corpuscular HGB Conc 30.9 g/dL (31.6-35.5); Mean Corpuscular Volume 96.9 fL (83.0-100.0); Monocytes # 0.8 K/mcL (0.0-1.3); Neutrophils # 8.5 K/mcL (1.6-8.9); Platelet Count 404 K/mcL (140-400); Red Cell Distribution Width 14.6 % (11.5-14.5); Segmented Neutrophils % 76.4 %; White Blood Count 11.1 K/mcL (4.3-11.1)
[2021-05-15 06:33] LABS: BUN/Creatinine Ratio 24 (6-26); Blood Urea Nitrogen 18 mg/dL (8-23); Calcium 9.3 mg/dL (8.6-10.3); Carbon Dioxide 32 mEq/L (23-29); Chloride 100 mEq/L (98-107); Glucose 89 mg/dL (70-105); Magnesium 1.7 mg/dL (1.6-2.6); Osmolality,Calculated 283 (280-300); Phosphorous 2.7 mg/dL (2.7-4.5); Potassium 4.2 mEq/L (3.5-5.1); Sodium 136 mEq/L (136-145); eGFR For African Americans > 60 (> 60); eGFR For Non-African Americans > 60 (> 60)
[2021-05-15] MEDS: Budesonide/Formoterol 160/4.5 1 PUFF INH IH SCH ×2 (07:59→20:37)
[2021-05-15] MEDS: Thiamine (B-1) 100 MG TABLET PO SCH (08:51)
[2021-05-15] MEDS: Aspirin Enteric Coated 81 MG Tablet PO SCH (08:51)
[2021-05-15] MEDS: amLODIPine 5 MG TABLET PO SCH (08:51)
[2021-05-15] MEDS: Folic Acid 1 MG TABLET PO SCH (08:51)
[2021-05-15] MEDS: Nicotine 14 MG PATCH.TD24 TD SCH (08:52)
[2021-05-15] MEDS: Ertapenem 1,000 MG in 0.9 % Sodium Chloride Mini Bag 100 ML IVPB SCH (08:52)
[2021-05-15] MEDS ORDERED: Amoxicillin Susp 250 MG/5 ML MLS PO SCH (17:00)
[2021-05-15] MEDS: Amoxicillin Susp 250 MG/5 ML UDC PO SCH (18:31)
[2021-05-16] MEDS: Levalbuterol Neb 1.25 MG/3 ML IH SCH ×4 (04:48→15:26)
[2021-05-16] MEDS: *HR* Heparin 5,000 UNIT/ML VIAL SQ SCH ×2 (05:38→17:32)
[2021-05-16] MEDS: Budesonide/Formoterol 160/4.5 1 PUFF INH IH SCH (07:41)
[2021-05-16] MEDS: Ertapenem 1,000 MG in 0.9 % Sodium Chloride Mini Bag 100 ML IVPB SCH (07:59)
[2021-05-16] MEDS: Nicotine 14 MG PATCH.TD24 TD SCH (07:59)
[2021-05-16] MEDS: Thiamine (B-1) 100 MG TABLET PO SCH (08:00)
[2021-05-16] MEDS: Amoxicillin Susp 250 MG/5 ML UDC PO SCH (08:00)
[2021-05-16] MEDS: Aspirin Enteric Coated 81 MG Tablet PO SCH (08:00)
[2021-05-16] MEDS: amLODIPine 5 MG TABLET PO SCH (08:00)
[2021-05-16] MEDS: Folic Acid 1 MG TABLET PO SCH (08:00)
[2021-05-16 12:33] VITALS: BP 156/69; PULSE 88; TEMP 98.1
[2021-05-16 14:33] LABS: Influenza A PCR Negative (Negative); Influenza B PCR Negative (Negative); Resp. Syncytial Virus PCR Negative (Negative)
[2021-05-16 14:47] LABS: SARS-CoV-2 by PCR (In House) Negative (Negative)
[2021-05-16 15:28] VITALS: O2SAT 92
== END 2021-05-16 18:55 | DRG 690 ==
LOC: 3BNU 02:20 → EMEROOARM 02:20 → SUATTDRO 07:03 → 3BNU 09:10 → SUATTDRO 05-13 16:58
PROVIDERS: ADMIT Internal Medicine; ATTEND Internal Medicine

== ENCOUNTER 2021-05-25 17:01 | Inpatient (IN) ==
[2021-05-25 18:20] LABS: Basophils # 0.1 K/mcL (0.0-0.2); Basophils % 0.3 %; Eosinophils # 0.1 K/mcL (0.0-0.6); Eosinophils % 0.7 %; Hematocrit 39.2 % (37.5-50.1); Hemoglobin 12.1 g/dL (12.9-16.9); Immature Granulocytes % 0.3 % (0-4); Immature Platelets 7.8 % (1.1-6.1); Lymphocytes # 0.5 K/mcL (0.6-4.6); Lymphocytes % 3.7 %; Mean Corpuscular HGB Conc 30.9 g/dL (31.6-35.5); Mean Corpuscular Hemoglobin 29.7 pg (28.0-33.3); Mean Corpuscular Volume 96.1 fL (83.0-100.0); Mean Platelet Volume 10.2 fL (9.4-12.4); Monocytes # 0.8 K/mcL (0.0-1.3); Monocytes % 5.3 %; Neutrophils # 12.9 K/mcL (1.6-8.9); Platelet Count 447 K/mcL (140-400); Red Blood Count 4.08 M/mcL (4.19-5.50); Red Cell Distribution Width 14.3 % (11.5-14.5); Segmented Neutrophils % 89.7 %; White Blood Count 14.5 K/mcL (4.3-11.1)
[2021-05-25 18:22] LABS: VBG HCO3 37 mEq/L (21-27); VBG PCO2 80 mmHg (41-51); VBG PH 7.28 pH Units (7.32-7.42); VBG PO2 83 mmHg (25-50)
[2021-05-25 18:43] LABS: Alanine Aminotransferase 15 Units/L (7-52); Albumin 4.2 g/dL (3.5-5.7); Albumin/Globulin Ratio 1.2 (1.1-2.2); Alkaline Phosphatase 68 Units/L (34-104); Aspartate Amino Transferase 28 Units/L (13-39); BUN/Creatinine Ratio 26 (6-26); Bilirubin,Direct 0.1 mg/dL (0.0-0.2); Bilirubin,Indirect 0.4 mg/dL (0.0-1.0); Bilirubin,Total 0.5 mg/dL (0.3-1.0); Blood Urea Nitrogen 25 mg/dL (8-23); Calcium 10.5 mg/dL (8.6-10.3); Carbon Dioxide 36 mEq/L (23-29); Chloride 90 mEq/L (98-107); Globulin 3.5 g/dL (2.4-3.5); Glucose 116 mg/dL (70-105); Magnesium 1.9 mg/dL (1.6-2.6); Osmolality,Calculated 283 (280-300); Potassium 4.4 mEq/L (3.5-5.1); Sodium 134 mEq/L (136-145); Total Protein 7.7 g/dL (6.4-8.9); Troponin I < 0.03 ng/mL (< 0.04); eGFR For African Americans > 60 (> 60); eGFR For Non-African Americans > 60 (> 60)
[2021-05-25] MEDS ORDERED: Ipratropium/Albuterol Neb 3 ML IH ONE (19:03)
[2021-05-25] MEDS ORDERED: methylPREDNISolone 125 MG/2 ML VIAL IVP ONE ×2 (19:03→20:39)
[2021-05-25 19:07] LABS: Bilirubin,Urine Negative (Negative); Blood,Urine Moderate (Negative); Clarity,Urine Clear (Clear); Color,Urine Yellow (Yellow); Glucose,Urine (UA) Normal (Normal); Hyaline Casts,Urine Few per lpf (None Seen); Ketones,Urine Negative (Negative); Leukocyte Esterase,Urine Negative (Negative); Mucus,Urine Few per lpf (None-Few); Nitrite,Urine Negative (Negative); PH,Urine 5.5 pH Units (5.0-8.0); Protein,Urine Trace mg/dL (Neg-Trace); RBC,Urine 15-30 per hpf (0-3); Specific Gravity,Urine 1.016 (1.010-1.025); Squamous Epithelial Cell,Urine Few per hpf (None-Few); Urobilinogen,Urine Normal (Normal); WBC,Urine 0-3 per hpf (0-3)
[2021-05-25 19:25] LABS: Influenza A PCR Negative (Negative); Influenza B PCR Negative (Negative); Resp. Syncytial Virus PCR Negative (Negative); SARS-CoV-2 by PCR (In House) Negative (Negative)
[2021-05-25] MEDS ORDERED: cefTRIAXone 1,000 MG in Water for inj. (sterile) 10 ML IVP ONE (19:31)
[2021-05-25] MEDS ORDERED: Azithromycin 250 MG TABLET PO ONE (19:31)
[2021-05-25] MEDS ORDERED: Naloxone 0.4 MG/ML INJ IVP PRN (20:37)
[2021-05-25] MEDS ORDERED: Melatonin 3 MG TABLET PO PRN (20:37)
[2021-05-25] MEDS ORDERED: Acetaminophen 325 MG TABLET PO PRN (20:37)
[2021-05-25] MEDS ORDERED: *HR* Promethazine 25 MG/ML VIAL IM PRN (20:37)
[2021-05-25] MEDS ORDERED: *HR* HYDROcodone/Acet 5/325 mg TABLET PO PRN (20:37)
[2021-05-25 21:39] LABS: ABG Base Excess 8 mEq/L (-2 to 3); ABG HCO3 37 mEq/L (21-27); ABG Oxygen Saturation 97 % (95-98); ABG PCO2 73 mmHg (35-45); ABG PH 7.31 pH Units (7.32-7.45); ABG PO2 98 mmHg (85-104); ABG TCO2 40 mEq/L (20-26); Blood Gas Modality 5LPM
[2021-05-25] MEDS ORDERED: Isovue-370 500 ML BOTTLE IVP ONE (21:39)
[2021-05-25] MEDS ORDERED: D5% in Water 1,000 ML IVC PRN (21:40)
[2021-05-25] MEDS ORDERED: *HR* Dextrose 50 % in Water (Syg) 50 ML SYRINGE IVP PRN (21:40)
[2021-05-25] MEDS ORDERED: Dextrose Gel 15 GM/37.5 ML TUBE PO PRN ×2 (21:40)
[2021-05-25] MEDS: Ipratropium/Albuterol Neb 3 ML IH SCH ×2 (22:59→23:38)
[2021-05-25] MEDS: Budesonide/Formoterol 160/4.5 1 PUFF INH IH SCH (23:38)
[2021-05-25 23:52] LABS: Acetaminophen < 10 mcg/mL (10-20); Ethanol < 10 mg/dL (Less than 10); Salicylate < 2.5 mg/dL (15.0-30.0)
[2021-05-26 00:12] LABS: Folate > 22.3 ng/mL (3.0-16.0); Vitamin B12 266 pg/mL (250-1100)
[2021-05-26] MEDS: Ipratropium/Albuterol Neb 3 ML IH SCH ×4 (03:38→13:11)
[2021-05-26] MEDS ORDERED: Lidocaine HCL 4 ML Topical Solution (Laryng-O-Jet Kit Sterile Pak) TP ONE (03:38)
[2021-05-26 04:08] LABS: Basophils % 0.1 %; Monocytes % 0.3 %
[2021-05-26 04:10] LABS: Hematocrit 37.8 % (37.5-50.1); Hemoglobin 11.8 g/dL (12.9-16.9); Immature Granulocytes % 0.5 % (0-4); Immature Platelets 6.9 % (1.1-6.1); Lymphocytes # 0.2 K/mcL (0.6-4.6); Mean Corpuscular HGB Conc 31.2 g/dL (31.6-35.5); Mean Corpuscular Hemoglobin 29.8 pg (28.0-33.3); Mean Corpuscular Volume 95.5 fL (83.0-100.0); Mean Platelet Volume 10.5 fL (9.4-12.4); Neutrophils # 10.6 K/mcL (1.6-8.9); Platelet Count 413 K/mcL (140-400); Red Blood Count 3.96 M/mcL (4.19-5.50); Red Cell Distribution Width 14.2 % (11.5-14.5); Segmented Neutrophils % 97.1 %; White Blood Count 10.9 K/mcL (4.3-11.1)
[2021-05-26 04:16] LABS: Prothrombin Time 10.8 Seconds (9.4-12.1)
[2021-05-26 04:30] LABS: BUN/Creatinine Ratio 27 (6-26); Blood Urea Nitrogen 24 mg/dL (8-23); Calcium 10.3 mg/dL (8.6-10.3); Carbon Dioxide 36 mEq/L (23-29); Chloride 91 mEq/L (98-107); Glucose 127 mg/dL (70-105); Magnesium 1.9 mg/dL (1.6-2.6); Osmolality,Calculated 284 (280-300); Phosphorous 3.1 mg/dL (2.7-4.5); Potassium 4.4 mEq/L (3.5-5.1); Sodium 134 mEq/L (136-145); eGFR For African Americans > 60 (> 60); eGFR For Non-African Americans > 60 (> 60)
[2021-05-26] MEDS ORDERED: MethylPREDNISolone 40 MG/ML VIAL IVP SCH (05:00)
[2021-05-26] MEDS ORDERED: *HR* Enoxaparin 40 MG/0.4 ML SYRINGE SQ SCH (06:00)
[2021-05-26] MEDS: Budesonide/Formoterol 160/4.5 1 PUFF INH IH SCH ×2 (07:53→20:10)
[2021-05-26] MEDS ORDERED: Lactobacillus 1 EACH CAP.SPRINK PO SCH (09:00)
[2021-05-26] MEDS ORDERED: Nicotine 21 MG PATCH.TD24 TD SCH (09:00)
[2021-05-26] MEDS ORDERED: Azithromycin 250 MG TABLET PO SCH (09:00)
[2021-05-26] MEDS ORDERED: Aspirin 81 MG TAB.CHEW PO SCH (09:00)
[2021-05-26] MEDS ORDERED: *HR* FentaNYL (PF) 100 MCG/2 ML VIAL ONE (09:11)
[2021-05-26] MEDS ORDERED: *HR* Propofol 200 MG/20 ML VIAL IVP ONE ×2 (09:11→10:20)
[2021-05-26] MEDS ORDERED: *HR* Rocuronium Bromide 50 MG/5 ML VIAL ONE (09:11)
[2021-05-26] MEDS ORDERED: Lidocaine -MPF 2% 5 ML VIAL ONE (09:11)
[2021-05-26] MEDS ORDERED: *HR* Succinylcholine 200 MG/10 ML VIAL IVP ONE (09:11)
[2021-05-26] MEDS ORDERED: Ondansetron 4 MG/2 ML VIAL ONE (09:11)
[2021-05-26 09:42] LABS: Amphetamine Screen,Urine Negative ng/mL (Cutoff=1000); Barbiturate Screen,Urine Negative ng/mL (Cutoff=200); Benzodiazepines Screen,Urine Negative ng/mL (Cutoff=200); Cannabinoid Screen,Urine Negative ng/mL (Cutoff = 50); Cocaine Screen,Urine Negative ng/mL (Cutoff= 300); Opiate Screen,Urine Negative ng/mL (Cutoff=300); Phencyclidine Screen,Urine Negative ng/mL (Cutoff=25)
[2021-05-26] MEDS ORDERED: Ipratropium/Albuterol Neb 3 ML IH ONE (10:34)
[2021-05-26] MEDS ORDERED: CefOXitin 1,000 MG VIAL ONE (11:14)
[2021-05-26] MEDS ORDERED: *HR* HYDROMORPHONE 2 MG/ML VIAL ONE (11:51)
[2021-05-26] MEDS ORDERED: Sugammadex Sodium 200 MG/2 ML VIAL IV ONE (12:04)
[2021-05-26] MEDS ORDERED: ceFAZolin 2,000 MG in 0.9 % Sodium Chloride 100 ML IVPB ONE (12:08)
[2021-05-26] MEDS ORDERED: CeFAZolin Syr 2,000MG/20 ML 2,000 MG/20 ML SYRINGE IVPB ONE ×2 (12:30→14:40)
[2021-05-26] MEDS ORDERED: Levalbuterol Neb 1.25 MG/3 ML IH ONE (13:58)
[2021-05-26] MEDS ORDERED: Naloxone 0.4 MG/ML INJ IVP PRN (14:40)
[2021-05-26] MEDS ORDERED: D5% in Water 1,000 ML IVC PRN (14:40)
[2021-05-26] MEDS ORDERED: *HR* HYDROcodone/Acet 5/325 mg TABLET PO PRN (14:40)
[2021-05-26] MEDS ORDERED: Dextrose Gel 15 GM/37.5 ML TUBE PO PRN ×2 (14:40)
[2021-05-26] MEDS ORDERED: Acetaminophen 325 MG TABLET PO PRN (14:40)
[2021-05-26] MEDS ORDERED: *HR* Promethazine 25 MG/ML VIAL IM PRN (14:40)
[2021-05-26] MEDS ORDERED: Melatonin 3 MG TABLET PO PRN (14:40)
[2021-05-26] MEDS ORDERED: *HR* Dextrose 50 % in Water (Syg) 50 ML SYRINGE IVP PRN (14:40)
[2021-05-26] MEDS ORDERED: Ipratropium/Albuterol Neb 3 ML IH SCH (16:00)
[2021-05-26] MEDS: Levalbuterol Neb 1.25 MG/3 ML IH SCH ×2 (16:13→20:10)
[2021-05-26 16:22] LABS: VBG HCO3 30 mEq/L (21-27); VBG PCO2 44 mmHg (41-51); VBG PH 7.44 pH Units (7.32-7.42); VBG PO2 188 mmHg (25-50)
[2021-05-26] MEDS: Lactobacillus 1 EACH CAP.SPRINK PO SCH (21:29)
[2021-05-26] MEDS: MethylPREDNISolone 40 MG/ML VIAL IVP SCH (21:34)
[2021-05-27 02:10] LABS: Basophils % 0.1 %; Hematocrit 35.8 % (37.5-50.1); Hemoglobin 10.8 g/dL (12.9-16.9); Lymphocytes # 0.4 K/mcL (0.6-4.6); Lymphocytes % 1.6 %; Mean Corpuscular HGB Conc 30.2 g/dL (31.6-35.5); Mean Corpuscular Hemoglobin 29.3 pg (28.0-33.3); Mean Platelet Volume 10.5 fL (9.4-12.4); Monocytes # 0.8 K/mcL (0.0-1.3); Monocytes % 3.6 %; Neutrophils # 21.6 K/mcL (1.6-8.9); Platelet Count 373 K/mcL (140-400); Red Blood Count 3.69 M/mcL (4.19-5.50); Red Cell Distribution Width 14.3 % (11.5-14.5); Segmented Neutrophils % 93.7 %
[2021-05-27 02:47] LABS: BUN/Creatinine Ratio 29 (6-26); Blood Urea Nitrogen 28 mg/dL (8-23); Calcium 9.7 mg/dL (8.6-10.3); Carbon Dioxide 29 mEq/L (23-29); Chloride 97 mEq/L (98-107); Glucose 105 mg/dL (70-105); Osmolality,Calculated 288 (280-300); Potassium 4.7 mEq/L (3.5-5.1); Sodium 136 mEq/L (136-145); White Blood Count 23.1 K/mcL (4.3-11.1); eGFR For African Americans > 60 (> 60); eGFR For Non-African Americans > 60 (> 60)
[2021-05-27] MEDS: Levalbuterol Neb 1.25 MG/3 ML IH SCH ×4 (03:41→20:39)
[2021-05-27] MEDS: MethylPREDNISolone 40 MG/ML VIAL IVP SCH ×3 (06:00→21:05)
[2021-05-27] MEDS: *HR* Enoxaparin 40 MG/0.4 ML SYRINGE SQ SCH ×2 (06:01→06:03)
[2021-05-27] MEDS: Azithromycin 250 MG TABLET PO SCH (08:52)
[2021-05-27] MEDS: Aspirin 81 MG TAB.CHEW PO SCH (08:53)
[2021-05-27] MEDS: Nicotine 21 MG PATCH.TD24 TD SCH (08:53)
[2021-05-27] MEDS: Lactobacillus 1 EACH CAP.SPRINK PO SCH ×2 (08:53→21:06)
[2021-05-27] MEDS: Budesonide/Formoterol 160/4.5 1 PUFF INH IH SCH ×2 (10:29→20:40)
[2021-05-27] MEDS ORDERED: hydroCHLOROthiazide 25 MG TABLET PO SCH (12:00)
[2021-05-28] MEDS: Levalbuterol Neb 1.25 MG/3 ML IH SCH ×4 (04:15→20:36)
[2021-05-28] MEDS: *HR* Enoxaparin 40 MG/0.4 ML SYRINGE SQ SCH (05:06)
[2021-05-28] MEDS: MethylPREDNISolone 40 MG/ML VIAL IVP SCH ×2 (05:06→17:31)
[2021-05-28 05:25] LABS: Basophils % 0.1 %; Hematocrit 33.2 % (37.5-50.1); Hemoglobin 10.7 g/dL (12.9-16.9); Immature Granulocytes % 0.6 % (0-4); Lymphocytes # 0.4 K/mcL (0.6-4.6); Lymphocytes % 2.3 %; Mean Corpuscular HGB Conc 32.2 g/dL (31.6-35.5); Mean Corpuscular Hemoglobin 30.2 pg (28.0-33.3); Mean Corpuscular Volume 93.8 fL (83.0-100.0); Mean Platelet Volume 10.2 fL (9.4-12.4); Monocytes # 0.8 K/mcL (0.0-1.3); Monocytes % 4.6 %; Neutrophils # 16.7 K/mcL (1.6-8.9); Platelet Count 408 K/mcL (140-400); Red Blood Count 3.54 M/mcL (4.19-5.50); Red Cell Distribution Width 14.2 % (11.5-14.5); Segmented Neutrophils % 92.4 %; White Blood Count 18.1 K/mcL (4.3-11.1)
[2021-05-28 05:41] LABS: BUN/Creatinine Ratio 29 (6-26); Blood Urea Nitrogen 24 mg/dL (8-23); Calcium 9.2 mg/dL (8.6-10.3); Carbon Dioxide 33 mEq/L (23-29); Chloride 95 mEq/L (98-107); Glucose 139 mg/dL (70-105); Osmolality,Calculated 280 (280-300); Potassium 4.4 mEq/L (3.5-5.1); Sodium 132 mEq/L (136-145); eGFR For African Americans > 60 (> 60); eGFR For Non-African Americans > 60 (> 60)
[2021-05-28] MEDS: Aspirin 81 MG TAB.CHEW PO SCH (09:06)
[2021-05-28] MEDS: lisinopriL 10 MG TABLET PO SCH (09:07)
[2021-05-28] MEDS: Lactobacillus 1 EACH CAP.SPRINK PO SCH ×2 (09:07→20:23)
[2021-05-28] MEDS: Azithromycin 250 MG TABLET PO SCH (09:07)
[2021-05-28] MEDS: Budesonide/Formoterol 160/4.5 1 PUFF INH IH SCH ×2 (10:25→20:37)
[2021-05-28] MEDS: Nicotine 21 MG PATCH.TD24 TD SCH (12:34)
[2021-05-29] MEDS: Levalbuterol Neb 1.25 MG/3 ML IH SCH ×4 (04:17→19:46)
[2021-05-29] MEDS: MethylPREDNISolone 40 MG/ML VIAL IVP SCH ×2 (05:00→16:58)
[2021-05-29] MEDS: *HR* Enoxaparin 40 MG/0.4 ML SYRINGE SQ SCH (05:00)
[2021-05-29 05:10] LABS: Basophils % 0.1 %; Hematocrit 32.5 % (37.5-50.1); Hemoglobin 10.2 g/dL (12.9-16.9); Immature Granulocytes % 1.1 % (0-4); Lymphocytes # 0.5 K/mcL (0.6-4.6); Lymphocytes % 3.3 %; Mean Corpuscular HGB Conc 31.4 g/dL (31.6-35.5); Mean Corpuscular Hemoglobin 29.6 pg (28.0-33.3); Mean Corpuscular Volume 94.2 fL (83.0-100.0); Mean Platelet Volume 10.4 fL (9.4-12.4); Neutrophils # 14.4 K/mcL (1.6-8.9); Platelet Count 388 K/mcL (140-400); Red Blood Count 3.45 M/mcL (4.19-5.50); Red Cell Distribution Width 14.1 % (11.5-14.5); Segmented Neutrophils % 89.5 %; White Blood Count 16.1 K/mcL (4.3-11.1)
[2021-05-29 05:31] LABS: BUN/Creatinine Ratio 38 (6-26); Blood Urea Nitrogen 33 mg/dL (8-23); Calcium 8.6 mg/dL (8.6-10.3); Carbon Dioxide 30 mEq/L (23-29); Chloride 95 mEq/L (98-107); Glucose 124 mg/dL (70-105); Osmolality,Calculated 283 (280-300); Potassium 4.5 mEq/L (3.5-5.1); Sodium 132 mEq/L (136-145); eGFR For African Americans > 60 (> 60); eGFR For Non-African Americans > 60 (> 60)
[2021-05-29] MEDS: Aspirin 81 MG TAB.CHEW PO SCH (08:58)
[2021-05-29] MEDS: Azithromycin 250 MG TABLET PO SCH (08:58)
[2021-05-29] MEDS: lisinopriL 10 MG TABLET PO SCH (08:58)
[2021-05-29] MEDS: Lactobacillus 1 EACH CAP.SPRINK PO SCH ×2 (08:58→20:20)
[2021-05-29] MEDS: Nicotine 21 MG PATCH.TD24 TD SCH (08:59)
[2021-05-29] MEDS: Budesonide/Formoterol 160/4.5 1 PUFF INH IH SCH ×2 (09:51→19:46)
[2021-05-30 01:54] LABS: Hemoglobin 9.5 g/dL (12.9-16.9); Immature Granulocytes % 0.7 % (0-4); Lymphocytes # 0.5 K/mcL (0.6-4.6); Mean Corpuscular HGB Conc 31.7 g/dL (31.6-35.5); Mean Corpuscular Hemoglobin 30.3 pg (28.0-33.3); Mean Corpuscular Volume 95.5 fL (83.0-100.0); Mean Platelet Volume 10.5 fL (9.4-12.4); Monocytes # 0.7 K/mcL (0.0-1.3); Monocytes % 4.9 %; Neutrophils # 13.9 K/mcL (1.6-8.9); Platelet Count 361 K/mcL (140-400); Red Blood Count 3.14 M/mcL (4.19-5.50); Segmented Neutrophils % 91.4 %; White Blood Count 15.2 K/mcL (4.3-11.1)
[2021-05-30 02:15] LABS: BUN/Creatinine Ratio 43 (6-26); Blood Urea Nitrogen 40 mg/dL (8-23); Calcium 8.4 mg/dL (8.6-10.3); Carbon Dioxide 30 mEq/L (23-29); Chloride 95 mEq/L (98-107); Glucose 127 mg/dL (70-105); Osmolality,Calculated 281 (280-300); Potassium 4.6 mEq/L (3.5-5.1); Sodium 130 mEq/L (136-145); eGFR For African Americans > 60 (> 60); eGFR For Non-African Americans > 60 (> 60)
[2021-05-30] MEDS: Levalbuterol Neb 1.25 MG/3 ML IH SCH ×3 (03:25→14:37)
[2021-05-30] MEDS: MethylPREDNISolone 40 MG/ML VIAL IVP SCH (05:09)
[2021-05-30] MEDS: *HR* Enoxaparin 40 MG/0.4 ML SYRINGE SQ SCH (05:09)
[2021-05-30] MEDS: lisinopriL 10 MG TABLET PO SCH (08:40)
[2021-05-30] MEDS: Lactobacillus 1 EACH CAP.SPRINK PO SCH (08:40)
[2021-05-30] MEDS: Aspirin 81 MG TAB.CHEW PO SCH (08:40)
[2021-05-30] MEDS: Nicotine 21 MG PATCH.TD24 TD SCH (08:41)
[2021-05-30] MEDS ORDERED: Ipratropium/Albuterol Neb 3 ML IH ONE (08:56)
[2021-05-30] MEDS: Budesonide/Formoterol 160/4.5 1 PUFF INH IH SCH (09:09)
[2021-05-30 10:28] VITALS: BP 113/71; PULSE 107; TEMP 97.9
[2021-05-30 13:15] LABS: Influenza A PCR Negative (Negative); Influenza B PCR Negative (Negative); Resp. Syncytial Virus PCR Negative (Negative)
[2021-05-30 13:16] LABS: SARS-CoV-2 by PCR (In House) Negative (Negative)
[2021-05-30 15:24] VITALS: O2SAT 99
== END 2021-05-30 17:39 | DRG 987 ==
LOC: SUATTDRO → EMEROOARM 17:01 → 2NNU 17:01 → SUATTDRO 20:56 → 2NNU 22:35 → SUATTDRO 23:19 → 3ANU 05-27 18:41
PROVIDERS: ADMIT Family Medicine; ATTEND Student in an Organized Health Care Education/Training Program

== ENCOUNTER 2021-06-01 13:03 | Inpatient (IN) ==
[2021-06-01] MEDS ORDERED: Ipratropium/Albuterol Neb 3 ML IH ONE (13:50)
[2021-06-01] MEDS ORDERED: Isovue-370 500 ML BOTTLE IVP ONE (13:50)
[2021-06-01 14:55] LABS: Basophils % 0.1 %
[2021-06-01 14:56] LABS: Eosinophils % 0.1 %; Hematocrit 38.4 % (37.5-50.1); Immature Granulocytes % 0.5 % (0-4); Immature Platelets 8.5 % (1.1-6.1); Lymphocytes # 0.5 K/mcL (0.6-4.6); Lymphocytes % 2.8 %; Mean Corpuscular HGB Conc 31.3 g/dL (31.6-35.5); Mean Corpuscular Hemoglobin 30.2 pg (28.0-33.3); Mean Corpuscular Volume 96.7 fL (83.0-100.0); Mean Platelet Volume 10.3 fL (9.4-12.4); Monocytes # 0.4 K/mcL (0.0-1.3); Monocytes % 2.2 %; Platelet Count 457 K/mcL (140-400); Red Blood Count 3.97 M/mcL (4.19-5.50); Red Cell Distribution Width 13.8 % (11.5-14.5); Segmented Neutrophils % 94.3 %; White Blood Count 17.3 K/mcL (4.3-11.1)
[2021-06-01 14:57] LABS: Neutrophils # 16.3 K/mcL (1.6-8.9)
[2021-06-01 15:19] LABS: BUN/Creatinine Ratio 33 (6-26); Blood Urea Nitrogen 25 mg/dL (8-23); Calcium 8.7 mg/dL (8.6-10.3); Carbon Dioxide 30 mEq/L (23-29); Chloride 94 mEq/L (98-107); Glucose 129 mg/dL (70-105); Osmolality,Calculated 276 (280-300); Potassium 4.5 mEq/L (3.5-5.1); Sodium 130 mEq/L (136-145); Troponin I < 0.03 ng/mL (< 0.04); eGFR For African Americans > 60 (> 60); eGFR For Non-African Americans > 60 (> 60)
[2021-06-01 16:05] LABS: Prothrombin Time 11.1 Seconds (9.4-12.1)
[2021-06-01 16:08] LABS: Activated Partial Thrombo Time 26.7 Seconds (26.0-36.0)
[2021-06-01] MEDS ORDERED: Piperacillin/Tazobactam 3.375 GM in Water for inj. (sterile) 20 ML IVP ONE (16:38)
[2021-06-01] MEDS ORDERED: Naloxone 0.4 MG/ML INJ IVP PRN (16:40)
[2021-06-01] MEDS ORDERED: Acetaminophen 325 MG TABLET PO PRN (16:40)
[2021-06-01] MEDS ORDERED: Ondansetron 4 MG/2 ML VIAL IVP PRN (16:40)
[2021-06-01 17:11] LABS: Bilirubin,Urine Negative (Negative); Blood,Urine Negative (Negative); Clarity,Urine Clear (Clear); Color,Urine Light-Yellow (Yellow); Glucose,Urine (UA) Normal (Normal); Ketones,Urine Negative (Negative); Leukocyte Esterase,Urine Negative (Negative); Nitrite,Urine Negative (Negative); Protein,Urine Trace mg/dL (Neg-Trace); Specific Gravity,Urine 1.018 (1.010-1.025); Urobilinogen,Urine Normal (Normal)
[2021-06-01] MEDS ORDERED: *HR* HYDROcodone/Acet 5/325 mg TABLET PO PRN (17:43)
[2021-06-01 18:16] LABS: Adenovirus Not Detected (Not Detect); Bordetella Pertussis Not Detected (Not Detect); Chlamydophila pneumoniae Not Detected (Not Detect); Coronavirus 229E Not Detected (Not Detect); Coronavirus HKU1 Not Detected (Not Detect); Coronavirus NL63 Not Detected (Not Detect); Coronavirus OC43 Not Detected (Not Detect); Human Metapneumovirus Not Detected (Not Detect); Human Rhinovirus/Enterovirus Not Detected (Not Detect); Influenza A Subtype 2009 H1 Not Detected (Not Detect); Influenza B Not Detected (Not Detect); Mycoplasma pneumoniae Not Detected (Not Detect); Parainfluenza Virus 1 Not Detected (Not Detect); Parainfluenza Virus 2 Not Detected (Not Detect); Parainfluenza Virus 3 Not Detected (Not Detect); Parainfluenza Virus 4 Not Detected (Not Detect); Respiratory Syncytial Virus Not Detected (Not Detect); SARS-CoV-2 Not Detected (Not Detect)
[2021-06-01] MEDS: Piperacillin/Tazobactam 3.375 GM in 0.9 % Sodium Chloride Mini Bag 100 ML IVPB SCH (23:57)
[2021-06-02 06:39] LABS: Basophils % 0.1 %; Eosinophils # 0.3 K/mcL (0.0-0.6); Eosinophils % 1.6 %; Hematocrit 34.6 % (37.5-50.1); Immature Granulocytes % 0.7 % (0-4); Lymphocytes # 1.8 K/mcL (0.6-4.6); Lymphocytes % 9.8 %; Mean Corpuscular HGB Conc 31.8 g/dL (31.6-35.5); Mean Corpuscular Hemoglobin 30.1 pg (28.0-33.3); Mean Corpuscular Volume 94.8 fL (83.0-100.0); Monocytes # 1.4 K/mcL (0.0-1.3); Monocytes % 7.4 %; Neutrophils # 14.6 K/mcL (1.6-8.9); Platelet Count 397 K/mcL (140-400); Red Blood Count 3.65 M/mcL (4.19-5.50); Red Cell Distribution Width 13.9 % (11.5-14.5); Segmented Neutrophils % 80.4 %; White Blood Count 18.2 K/mcL (4.3-11.1)
[2021-06-02 06:57] LABS: BUN/Creatinine Ratio 25 (6-26); Blood Urea Nitrogen 21 mg/dL (8-23); Calcium 8.1 mg/dL (8.6-10.3); Carbon Dioxide 29 mEq/L (23-29); Chloride 101 mEq/L (98-107); Glucose 81 mg/dL (70-105); Magnesium 1.7 mg/dL (1.6-2.6); Osmolality,Calculated 270 (280-300); Phosphorous 2.4 mg/dL (2.7-4.5); Potassium 4.4 mEq/L (3.5-5.1); Sodium 129 mEq/L (136-145); eGFR For African Americans > 60 (> 60); eGFR For Non-African Americans > 60 (> 60)
[2021-06-02] MEDS: Folic Acid 1 MG TABLET PO SCH (08:55)
[2021-06-02] MEDS: Aspirin 81 MG TAB.CHEW PO SCH (08:55)
[2021-06-02] MEDS: amLODIPine 5 MG TABLET PO SCH (08:55)
[2021-06-02] MEDS: Thiamine (B-1) 100 MG TABLET PO SCH (08:55)
[2021-06-02] MEDS: Nicotine 21 MG PATCH.TD24 TD SCH (08:56)
[2021-06-02] MEDS: Piperacillin/Tazobactam 3.375 GM in 0.9 % Sodium Chloride Mini Bag 100 ML IVPB SCH (08:57)
[2021-06-02] MEDS ORDERED: predniSONE 10 MG TABLET PO SCH (09:00)
[2021-06-02] MEDS ORDERED: predniSONE 20 MG TABLET PO SCH (09:00)
[2021-06-02] MEDS: Ipratropium/Albuterol Neb 3 ML IH PRN (12:46)
[2021-06-02] MEDS ORDERED: *HR* Heparin 5,000 UNIT/ML VIAL SQ SCH (14:00)
[2021-06-03 04:54] LABS: Basophils % 0.1 %; Eosinophils % 0.1 %; Hematocrit 31.6 % (37.5-50.1); Hemoglobin 10.3 g/dL (12.9-16.9); Immature Granulocytes % 1.1 % (0-4); Lymphocytes # 0.8 K/mcL (0.6-4.6); Lymphocytes % 5.4 %; Mean Corpuscular HGB Conc 32.6 g/dL (31.6-35.5); Mean Corpuscular Hemoglobin 30.7 pg (28.0-33.3); Mean Platelet Volume 10.7 fL (9.4-12.4); Monocytes % 6.3 %; Neutrophils # 13.5 K/mcL (1.6-8.9); Platelet Count 429 K/mcL (140-400); Red Blood Count 3.36 M/mcL (4.19-5.50); Red Cell Distribution Width 13.7 % (11.5-14.5); White Blood Count 15.5 K/mcL (4.3-11.1)
[2021-06-03 05:13] LABS: BUN/Creatinine Ratio 21 (6-26); Blood Urea Nitrogen 19 mg/dL (8-23); Calcium 8.2 mg/dL (8.6-10.3); Carbon Dioxide 30 mEq/L (23-29); Chloride 94 mEq/L (98-107); Glucose 104 mg/dL (70-105); Magnesium 1.6 mg/dL (1.6-2.6); Osmolality,Calculated 267 (280-300); Potassium 4.4 mEq/L (3.5-5.1); Sodium 127 mEq/L (136-145); eGFR For African Americans > 60 (> 60); eGFR For Non-African Americans > 60 (> 60)
[2021-06-03 07:33] LABS: Acinetobacter baumannii by PCR Not Detected (Not Detect); Candida albicans by PCR Not Detected (Not Detect); Candida glabrata by PCR Not Detected (Not Detect); Candida krusei by PCR Not Detected (Not Detect); Candida parapsilosis by PCR Not Detected (Not Detect); Candida tropicalis by PCR Not Detected (Not Detect); Enterobacter cloacae Cmplx PCR Not Detected (Not Detect); Enterobacteriaceae by PCR Not Detected (Not Detect); Enterococcus by PCR DETECTED (Not Detect); Escherichia coli by PCR Not Detected (Not Detect); Klebsiella oxytoca by PCR Not Detected (Not Detect); Klebsiella pneumoniae by PCR Not Detected (Not Detect); Proteus by PCR Not Detected (Not Detect); Pseudomonas aeruginosa by PCR Not Detected (Not Detect); Serratia marcescens by PCR Not Detected (Not Detect); Staphylococcus aureus by PCR Not Detected (Not Detect); Staphylococcus by PCR DETECTED (Not Detect); Streptococcus agalactiae(B)PCR Not Detected (Not Detect); Streptococcus by PCR Not Detected (Not Detect); Streptococcus pneumoniae PCR Not Detected (Not Detect); Streptococcus pyogenes (A) PCR Not Detected (Not Detect); mecA Methicillin-Resist Gene DETECTED (Not Detect); vanA/B Vancomycin-Resist Genes Not Detected (Not Detect)
[2021-06-03] MEDS: Aspirin 81 MG TAB.CHEW PO SCH (08:19)
[2021-06-03] MEDS: Folic Acid 1 MG TABLET PO SCH (08:19)
[2021-06-03] MEDS: amLODIPine 5 MG TABLET PO SCH (08:20)
[2021-06-03] MEDS: Thiamine (B-1) 100 MG TABLET PO SCH (08:20)
[2021-06-03] MEDS: Nicotine 21 MG PATCH.TD24 TD SCH (08:20)
[2021-06-03] MEDS ORDERED: predniSONE 20 MG TABLET PO SCH (09:00)
[2021-06-03] MEDS: Ipratropium/Albuterol Neb 3 ML IH PRN (11:02)
[2021-06-03] MEDS ORDERED: *HR* Rocuronium Bromide 50 MG/5 ML VIAL ONE (14:38)
[2021-06-03] MEDS ORDERED: Lidocaine HCL 4 ML Topical Solution (Laryng-O-Jet Kit Sterile Pak) TP ONE (14:38)
[2021-06-03] MEDS ORDERED: *HR* Succinylcholine 200 MG/10 ML VIAL IVP ONE (14:38)
[2021-06-03] MEDS ORDERED: *HR* FentaNYL (PF) 100 MCG/2 ML VIAL ONE (14:38)
[2021-06-03] MEDS ORDERED: Lidocaine -MPF 2% 5 ML VIAL ONE (14:38)
[2021-06-03] MEDS ORDERED: Ondansetron 4 MG/2 ML VIAL ONE (14:38)
[2021-06-03] MEDS ORDERED: *HR* Propofol 200 MG/20 ML VIAL IVP ONE (14:39)
[2021-06-03] MEDS ORDERED: Sugammadex Sodium 200 MG/2 ML VIAL IV ONE (15:22)
[2021-06-03] MEDS ORDERED: Famotidine 20 MG/2 ML VIAL IVP ONE (16:00)
[2021-06-03] MEDS ORDERED: *HR* Labetalol 20 MG/4 ML SYRINGE IVP PRN (16:00)
[2021-06-03] MEDS ORDERED: Acetaminophen IV 1,000 MG/100 ML BAG IVPB ONE (16:00)
[2021-06-03] MEDS ORDERED: *HR* HYDROmorphone 2 MG TABLET PO PRN (16:00)
[2021-06-03] MEDS ORDERED: *HR* HYDROmorphone PF 0.5 MG/0.5 ML SYRINGE IVP PRN (16:00)
[2021-06-03] MEDS ORDERED: *HR* OxyCODONE Immed Rel 5 MG TABLET PO PRN (16:00)
[2021-06-03] MEDS ORDERED: Ondansetron 4 MG/2 ML VIAL IVP PRN (17:15)
[2021-06-03] MEDS ORDERED: Acetaminophen 325 MG TABLET PO PRN (17:15)
[2021-06-03] MEDS ORDERED: Naloxone 0.4 MG/ML INJ IVP PRN (17:15)
[2021-06-03] MEDS: *HR* HYDROcodone/Acet 5/325 mg TABLET PO PRN (23:25)
[2021-06-04 05:31] LABS: BUN/Creatinine Ratio 22 (6-26); Blood Urea Nitrogen 17 mg/dL (8-23); Calcium 8.5 mg/dL (8.6-10.3); Carbon Dioxide 32 mEq/L (23-29); Chloride 94 mEq/L (98-107); Glucose 112 mg/dL (70-105); Magnesium 1.6 mg/dL (1.6-2.6); Osmolality,Calculated 270 (280-300); Potassium 4.7 mEq/L (3.5-5.1); Sodium 129 mEq/L (136-145); eGFR For African Americans > 60 (> 60); eGFR For Non-African Americans > 60 (> 60)
[2021-06-04 06:07] LABS: Basophils % 0.1 %; Hematocrit 34.6 % (37.5-50.1); Hemoglobin 11.2 g/dL (12.9-16.9); Immature Granulocytes % 0.9 % (0-4); Lymphocytes # 0.7 K/mcL (0.6-4.6); Lymphocytes % 3.7 %; Mean Corpuscular HGB Conc 32.4 g/dL (31.6-35.5); Mean Corpuscular Hemoglobin 30.9 pg (28.0-33.3); Mean Corpuscular Volume 95.6 fL (83.0-100.0); Mean Platelet Volume 10.8 fL (9.4-12.4); Neutrophils # 17.8 K/mcL (1.6-8.9); Platelet Count 512 K/mcL (140-400); Red Blood Count 3.62 M/mcL (4.19-5.50); Red Cell Distribution Width 13.9 % (11.5-14.5); Segmented Neutrophils % 90.3 %; White Blood Count 19.7 K/mcL (4.3-11.1)
[2021-06-04] MEDS: Aspirin 81 MG TAB.CHEW PO SCH (08:16)
[2021-06-04] MEDS: *HR* HYDROcodone/Acet 5/325 mg TABLET PO PRN (08:16)
[2021-06-04] MEDS: predniSONE 20 MG TABLET PO SCH (08:16)
[2021-06-04] MEDS: amLODIPine 5 MG TABLET PO SCH (08:17)
[2021-06-04] MEDS: Nicotine 21 MG PATCH.TD24 TD SCH (08:19)
[2021-06-05 03:17] LABS: Basophils % 0.1 %; Eosinophils % 0.1 %; Hematocrit 35.9 % (37.5-50.1); Hemoglobin 11.2 g/dL (12.9-16.9); Immature Granulocytes % 1.4 % (0-4); Lymphocytes # 0.9 K/mcL (0.6-4.6); Lymphocytes % 3.9 %; Mean Corpuscular HGB Conc 31.2 g/dL (31.6-35.5); Mean Corpuscular Hemoglobin 29.5 pg (28.0-33.3); Mean Corpuscular Volume 94.5 fL (83.0-100.0); Mean Platelet Volume 10.4 fL (9.4-12.4); Monocytes # 1.8 K/mcL (0.0-1.3); Neutrophils # 19.8 K/mcL (1.6-8.9); Platelet Count 525 K/mcL (140-400); Red Cell Distribution Width 14.1 % (11.5-14.5); Segmented Neutrophils % 86.5 %; White Blood Count 22.9 K/mcL (4.3-11.1)
[2021-06-05 03:36] LABS: BUN/Creatinine Ratio 23 (6-26); Blood Urea Nitrogen 23 mg/dL (8-23); Calcium 8.4 mg/dL (8.6-10.3); Carbon Dioxide 26 mEq/L (23-29); Chloride 94 mEq/L (98-107); Glucose 126 mg/dL (70-105); Magnesium 2.4 mg/dL (1.6-2.6); Osmolality,Calculated 267 (280-300); Potassium 4.5 mEq/L (3.5-5.1); Sodium 126 mEq/L (136-145); eGFR For African Americans > 60 (> 60); eGFR For Non-African Americans > 60 (> 60)
[2021-06-05 03:41] LABS: Large Platelets Present (Not Present); Reactive Lymphocytes Present (Not Present)
[2021-06-05 03:42] LABS: Platelet Estimate Normal (Normal)
[2021-06-05] MEDS: Aspirin 81 MG TAB.CHEW PO SCH (08:35)
[2021-06-05] MEDS: amLODIPine 5 MG TABLET PO SCH (08:35)
[2021-06-05] MEDS: predniSONE 20 MG TABLET PO SCH (08:35)
[2021-06-05] MEDS: Nicotine 21 MG PATCH.TD24 TD SCH (08:36)
[2021-06-05] MEDS: *HR* HYDROcodone/Acet 5/325 mg TABLET PO PRN (08:42)
[2021-06-05 09:53] LABS: Bilirubin,Urine Negative (Negative); Blood,Urine Negative (Negative); Clarity,Urine Clear (Clear); Color,Urine Yellow (Yellow); Glucose,Urine (UA) Normal (Normal); Ketones,Urine Negative (Negative); Leukocyte Esterase,Urine Negative (Negative); Nitrite,Urine Negative (Negative); Protein,Urine Trace mg/dL (Neg-Trace); Specific Gravity,Urine 1.018 (1.010-1.025); Urobilinogen,Urine Normal (Normal)
[2021-06-06 06:20] LABS: Hematocrit 32.1 % (37.5-50.1); Hemoglobin 9.9 g/dL (12.9-16.9); Immature Platelets 7.3 % (1.1-6.1); Mean Corpuscular HGB Conc 30.8 g/dL (31.6-35.5); Mean Corpuscular Hemoglobin 29.4 pg (28.0-33.3); Mean Corpuscular Volume 95.3 fL (83.0-100.0); Mean Platelet Volume 10.4 fL (9.4-12.4); Red Blood Count 3.37 M/mcL (4.19-5.50); Red Cell Distribution Width 14.1 % (11.5-14.5); White Blood Count 15.3 K/mcL (4.3-11.1)
[2021-06-06 06:35] LABS: BUN/Creatinine Ratio 27 (6-26); Blood Urea Nitrogen 22 mg/dL (8-23); Calcium 8.5 mg/dL (8.6-10.3); Carbon Dioxide 32 mEq/L (23-29); Chloride 95 mEq/L (98-107); Glucose 94 mg/dL (70-105); Osmolality,Calculated 271 (280-300); Potassium 4.4 mEq/L (3.5-5.1); Sodium 129 mEq/L (136-145); eGFR For African Americans > 60 (> 60); eGFR For Non-African Americans > 60 (> 60)
[2021-06-06] MEDS: Aspirin 81 MG TAB.CHEW PO SCH (08:01)
[2021-06-06] MEDS: amLODIPine 5 MG TABLET PO SCH (08:01)
[2021-06-06] MEDS: predniSONE 20 MG TABLET PO SCH (08:01)
[2021-06-06] MEDS: Nicotine 21 MG PATCH.TD24 TD SCH (08:02)
[2021-06-07] MEDS: *HR* HYDROcodone/Acet 5/325 mg TABLET PO PRN (00:26)
[2021-06-07 06:06] LABS: Basophils % 0.1 %; Eosinophils # 0.2 K/mcL (0.0-0.6); Eosinophils % 1.5 %; Hematocrit 34.3 % (37.5-50.1); Hemoglobin 10.7 g/dL (12.9-16.9); Immature Granulocytes % 1.4 % (0-4); Immature Platelets 6.2 % (1.1-6.1); Mean Corpuscular HGB Conc 31.2 g/dL (31.6-35.5); Mean Corpuscular Hemoglobin 29.7 pg (28.0-33.3); Mean Corpuscular Volume 95.3 fL (83.0-100.0); Mean Platelet Volume 10.1 fL (9.4-12.4); Monocytes % 6.8 %; Neutrophils # 12.2 K/mcL (1.6-8.9); Platelet Count 506 K/mcL (140-400); Red Cell Distribution Width 14.2 % (11.5-14.5); Segmented Neutrophils % 83.2 %; White Blood Count 14.7 K/mcL (4.3-11.1)
[2021-06-07 06:20] LABS: BUN/Creatinine Ratio 26 (6-26); Blood Urea Nitrogen 22 mg/dL (8-23); Calcium 8.6 mg/dL (8.6-10.3); Carbon Dioxide 34 mEq/L (23-29); Chloride 96 mEq/L (98-107); Glucose 88 mg/dL (70-105); Osmolality,Calculated 275 (280-300); Potassium 4.5 mEq/L (3.5-5.1); Sodium 131 mEq/L (136-145); eGFR For African Americans > 60 (> 60); eGFR For Non-African Americans > 60 (> 60)
[2021-06-07] MEDS: predniSONE 10 MG TABLET PO SCH (07:33)
[2021-06-07] MEDS: Aspirin 81 MG TAB.CHEW PO SCH (07:33)
[2021-06-07] MEDS: amLODIPine 5 MG TABLET PO SCH (07:34)
[2021-06-07] MEDS: Nicotine 21 MG PATCH.TD24 TD SCH (07:35)
[2021-06-07] MEDS: Ipratropium/Albuterol Neb 3 ML IH PRN (11:31)
[2021-06-07] MEDS: Cyanocobalamin (B-12) 1,000 MCG TABLET PO SCH (17:00)
[2021-06-07] MEDS: Budesonide/Formoterol 160/4.5 1 PUFF INH IH SCH (20:27)
[2021-06-08] MEDS: predniSONE 10 MG TABLET PO SCH (08:41)
[2021-06-08] MEDS: Aspirin 81 MG TAB.CHEW PO SCH (08:41)
[2021-06-08] MEDS: Cyanocobalamin (B-12) 1,000 MCG TABLET PO SCH (08:41)
[2021-06-08] MEDS: amLODIPine 5 MG TABLET PO SCH (08:41)
[2021-06-08] MEDS: Nicotine 21 MG PATCH.TD24 TD SCH (08:42)
[2021-06-08] MEDS: Budesonide/Formoterol 160/4.5 1 PUFF INH IH SCH ×2 (10:17→20:12)
[2021-06-08 11:47] LABS: BUN/Creatinine Ratio 23 (6-26); Blood Urea Nitrogen 17 mg/dL (8-23); eGFR For African Americans > 60 (> 60); eGFR For Non-African Americans > 60 (> 60)
[2021-06-09 07:57] LABS: BUN/Creatinine Ratio 22 (6-26); Blood Urea Nitrogen 18 mg/dL (8-23); Calcium 8.6 mg/dL (8.6-10.3); Carbon Dioxide 37 mEq/L (23-29); Chloride 94 mEq/L (98-107); Glucose 98 mg/dL (70-105); Hematocrit 32.9 % (37.5-50.1); Hemoglobin 10.1 g/dL (12.9-16.9); Mean Corpuscular HGB Conc 30.7 g/dL (31.6-35.5); Mean Corpuscular Hemoglobin 29.4 pg (28.0-33.3); Mean Corpuscular Volume 95.9 fL (83.0-100.0); Mean Platelet Volume 9.8 fL (9.4-12.4); Osmolality,Calculated 276 (280-300); Platelet Count 514 K/mcL (140-400); Potassium 4.5 mEq/L (3.5-5.1); Red Blood Count 3.43 M/mcL (4.19-5.50); Red Cell Distribution Width 14.4 % (11.5-14.5); Sodium 132 mEq/L (136-145); White Blood Count 19.9 K/mcL (4.3-11.1); eGFR For African Americans > 60 (> 60); eGFR For Non-African Americans > 60 (> 60)
[2021-06-09] MEDS: Cyanocobalamin (B-12) 1,000 MCG TABLET PO SCH (08:04)
[2021-06-09] MEDS: amLODIPine 5 MG TABLET PO SCH (08:04)
[2021-06-09] MEDS: Nicotine 21 MG PATCH.TD24 TD SCH (08:05)
[2021-06-09] MEDS: predniSONE 10 MG TABLET PO SCH (08:05)
[2021-06-09] MEDS: Aspirin 81 MG TAB.CHEW PO SCH (08:05)
[2021-06-09] MEDS: Budesonide/Formoterol 160/4.5 1 PUFF INH IH SCH ×2 (10:57→19:38)
[2021-06-10 05:20] LABS: Hematocrit 29.1 % (37.5-50.1); Hemoglobin 9.2 g/dL (12.9-16.9); Mean Corpuscular HGB Conc 31.6 g/dL (31.6-35.5); Mean Corpuscular Hemoglobin 30.4 pg (28.0-33.3); Mean Platelet Volume 9.7 fL (9.4-12.4); Platelet Count 462 K/mcL (140-400); Red Blood Count 3.03 M/mcL (4.19-5.50); Red Cell Distribution Width 14.5 % (11.5-14.5); White Blood Count 18.2 K/mcL (4.3-11.1)
[2021-06-10 05:23] LABS: BUN/Creatinine Ratio 21 (6-26); Blood Urea Nitrogen 17 mg/dL (8-23); Calcium 8.1 mg/dL (8.6-10.3); Carbon Dioxide 34 mEq/L (23-29); Chloride 94 mEq/L (98-107); Glucose 97 mg/dL (70-105); Osmolality,Calculated 275 (280-300); Potassium 4.3 mEq/L (3.5-5.1); Sodium 132 mEq/L (136-145); eGFR For African Americans > 60 (> 60); eGFR For Non-African Americans > 60 (> 60)
[2021-06-10] MEDS: amLODIPine 5 MG TABLET PO SCH (08:37)
[2021-06-10] MEDS: Cyanocobalamin (B-12) 1,000 MCG TABLET PO SCH (08:37)
[2021-06-10] MEDS: predniSONE 10 MG TABLET PO SCH (08:37)
[2021-06-10] MEDS: Aspirin 81 MG TAB.CHEW PO SCH (08:37)
[2021-06-10] MEDS: Nicotine 21 MG PATCH.TD24 TD SCH (08:42)
[2021-06-10] MEDS: Budesonide/Formoterol 160/4.5 1 PUFF INH IH SCH ×2 (09:46→20:10)
[2021-06-10] MEDS: Ipratropium/Albuterol Neb 3 ML IH PRN (13:08)
[2021-06-11 05:01] LABS: Basophils % 0.1 %; Eosinophils # 0.3 K/mcL (0.0-0.6); Eosinophils % 1.5 %; Hematocrit 31.8 % (37.5-50.1); Hemoglobin 10.1 g/dL (12.9-16.9); Immature Granulocytes % 0.9 % (0-4); Lymphocytes # 1.1 K/mcL (0.6-4.6); Lymphocytes % 5.8 %; Mean Corpuscular HGB Conc 31.8 g/dL (31.6-35.5); Mean Corpuscular Hemoglobin 29.9 pg (28.0-33.3); Mean Corpuscular Volume 94.1 fL (83.0-100.0); Mean Platelet Volume 9.5 fL (9.4-12.4); Monocytes # 0.9 K/mcL (0.0-1.3); Monocytes % 4.9 %; Neutrophils # 16.6 K/mcL (1.6-8.9); Platelet Count 481 K/mcL (140-400); Red Blood Count 3.38 M/mcL (4.19-5.50); Red Cell Distribution Width 14.3 % (11.5-14.5); Segmented Neutrophils % 86.8 %; White Blood Count 19.1 K/mcL (4.3-11.1)
[2021-06-11 05:21] LABS: BUN/Creatinine Ratio 22 (6-26); Blood Urea Nitrogen 15 mg/dL (8-23); Calcium 8.5 mg/dL (8.6-10.3); Carbon Dioxide 35 mEq/L (23-29); Chloride 91 mEq/L (98-107); Glucose 99 mg/dL (70-105); Osmolality,Calculated 269 (280-300); Potassium 4.3 mEq/L (3.5-5.1); Sodium 129 mEq/L (136-145); eGFR For African Americans > 60 (> 60); eGFR For Non-African Americans > 60 (> 60)
[2021-06-11] MEDS: Budesonide/Formoterol 160/4.5 1 PUFF INH IH SCH ×2 (08:29→20:11)
[2021-06-11] MEDS: predniSONE 10 MG TABLET PO SCH (09:50)
[2021-06-11] MEDS: Cyanocobalamin (B-12) 1,000 MCG TABLET PO SCH (09:50)
[2021-06-11] MEDS: Aspirin 81 MG TAB.CHEW PO SCH (09:50)
[2021-06-11] MEDS: amLODIPine 5 MG TABLET PO SCH (09:50)
[2021-06-11] MEDS: Nicotine 21 MG PATCH.TD24 TD SCH (09:55)
[2021-06-11 19:33] VITALS: BP 122/69; PULSE 92; TEMP 97.6
[2021-06-11 20:12] VITALS: O2SAT 99
== END 2021-06-11 23:15 | DRG 853 ==
LOC: SUATTDRO → 2ANU 13:03 → EMEROOARM 13:03 → SUATTDRO 18:16 → 2ANU 19:38 → SUATTDRO 06-02 13:18 → 2NNU 06-03 17:15 → 3BNU 06-09 13:31
PROVIDERS: ADMIT Pharmacist; ATTEND Internal Medicine

== ENCOUNTER 2021-11-01 09:19 | Inpatient (IN) ==
[2021-11-01] MEDS ORDERED: Isovue-370 500 ML BOTTLE IVP ONE (09:50)
[2021-11-01] MEDS ORDERED: Ipratropium/Albuterol Neb 3 ML IH ONE (09:51)
[2021-11-01] MEDS ORDERED: Azithromycin 500 MG in 0.9 % Sodium Chloride 250 ML IVPB ONE (09:52)
[2021-11-01] MEDS ORDERED: methylPREDNISolone 125 MG/2 ML VIAL IVP ONE (09:52)
[2021-11-01 10:17] LABS: Basophils # 0.1 K/mcL (0.0-0.2); Basophils % 0.4 %; Eosinophils % 0.1 %; Hematocrit 40.5 % (37.5-50.1); Hemoglobin 12.5 g/dL (12.9-16.9); Immature Granulocytes % 0.4 % (0-4); Lymphocytes # 0.5 K/mcL (0.6-4.6); Lymphocytes % 3.5 %; Mean Corpuscular HGB Conc 30.9 g/dL (31.6-35.5); Mean Corpuscular Hemoglobin 28.5 pg (28.0-33.3); Mean Corpuscular Volume 92.5 fL (83.0-100.0); Mean Platelet Volume 9.3 fL (9.4-12.4); Monocytes # 1.2 K/mcL (0.0-1.3); Monocytes % 8.4 %; Platelet Count 431 K/mcL (140-400); Red Blood Count 4.38 M/mcL (4.19-5.50); Red Cell Distribution Width 14.6 % (11.5-14.5); Segmented Neutrophils % 87.2 %; White Blood Count 13.8 K/mcL (4.3-11.1)
[2021-11-01 10:24] LABS: Prothrombin Time 11.2 Seconds (9.4-12.1)
[2021-11-01 10:26] LABS: Activated Partial Thrombo Time 32.1 Seconds (26.0-36.0)
[2021-11-01] MEDS ORDERED: Piperacillin/Tazobactam 3.375 GM in 0.9 % Sodium Chloride Mini Bag 100 ML IVPB ONE (10:27)
[2021-11-01 10:43] LABS: Alanine Aminotransferase 11 Units/L (7-52); Albumin 3.8 g/dL (3.5-5.7); Albumin/Globulin Ratio 1.1 (1.1-2.2); Alkaline Phosphatase 65 Units/L (34-104); Aspartate Amino Transferase 18 Units/L (13-39); BUN/Creatinine Ratio 24 (6-26); Bilirubin,Direct 0.1 mg/dL (0.0-0.2); Bilirubin,Indirect 0.4 mg/dL (0.0-1.0); Bilirubin,Total 0.5 mg/dL (0.3-1.0); Blood Urea Nitrogen 31 mg/dL (8-23); Calcium 10.1 mg/dL (8.6-10.3); Carbon Dioxide 34 mEq/L (23-29); Chloride 87 mEq/L (98-107); Globulin 3.5 g/dL (2.4-3.5); Glucose 107 mg/dL (70-105); Osmolality,Calculated 273 (280-300); Potassium 3.9 mEq/L (3.5-5.1); Sodium 128 mEq/L (136-145); Total Protein 7.3 g/dL (6.4-8.9); Troponin I 0.05 ng/mL (< 0.04); eGFR For African Americans > 60 (> 60); eGFR For Non-African Americans 53 (> 60)
[2021-11-01] MEDS ORDERED: 0.9 % Sodium Chloride 1,000 ML IVC ONE (10:53)
[2021-11-01 11:21] LABS: Ferritin 267 ng/mL (20-250)
[2021-11-01 11:32] LABS: Adenovirus Not Detected (Not Detect); Bordetella Pertussis Not Detected (Not Detect); Chlamydophila pneumoniae Not Detected (Not Detect); Coronavirus 229E Not Detected (Not Detect); Coronavirus HKU1 Not Detected (Not Detect); Coronavirus NL63 Not Detected (Not Detect); Coronavirus OC43 Not Detected (Not Detect); Human Metapneumovirus Not Detected (Not Detect); Human Rhinovirus/Enterovirus Not Detected (Not Detect); Influenza A Subtype 2009 H1 Not Detected (Not Detect); Influenza B Not Detected (Not Detect); Mycoplasma pneumoniae Not Detected (Not Detect); Parainfluenza Virus 1 Not Detected (Not Detect); Parainfluenza Virus 2 Not Detected (Not Detect); Parainfluenza Virus 3 Not Detected (Not Detect); Parainfluenza Virus 4 Not Detected (Not Detect); Respiratory Syncytial Virus Not Detected (Not Detect); SARS-CoV-2 Not Detected (Not Detect)
[2021-11-01 11:41] LABS: ABG Base Excess 4 mEq/L (-2 to 3); ABG HCO3 34 mEq/L (21-27); ABG Oxygen Saturation 90 % (95-98); ABG PCO2 81 mmHg (35-45); ABG PH 7.23 pH Units (7.32-7.45); ABG PO2 72 mmHg (85-104); ABG TCO2 36 mEq/L (20-26)
[2021-11-01 12:11] LABS: C-Reactive Protein 104 mg/L (Less than 10)
[2021-11-01 12:18] LABS: Bilirubin,Urine Negative (Negative); Blood,Urine Moderate (Negative); Clarity,Urine Turbid (Clear); Color,Urine Yellow (Yellow); Glucose,Urine (UA) Normal (Normal); Ketones,Urine Trace mg/dL (Negative); Leukocyte Esterase,Urine Large (Negative); Nitrite,Urine Negative (Negative); Protein,Urine 100 mg/dL (Neg-Trace); Specific Gravity,Urine 1.018 (1.010-1.025); Urobilinogen,Urine Normal (Normal)
[2021-11-01 12:27] LABS: Bacteria,Urine Moderate per hpf (None-Few); WBC,Urine TNTC per hpf (0-3)
[2021-11-01 12:28] LABS: RBC,Urine 0-3 per hpf (0-3); Sodium, Urine 14.7 mEq/L; Squamous Epithelial Cell,Urine Few per hpf (None-Few)
[2021-11-01 12:30] LABS: Hyaline Casts,Urine Few per lpf (None Seen)
[2021-11-01] MEDS ORDERED: Naloxone 0.4 MG/ML INJ IVP PRN (12:40)
[2021-11-01] MEDS ORDERED: Ondansetron 4 MG/2 ML VIAL IVP PRN (12:40)
[2021-11-01 13:49] LABS: ABG Base Excess 2 mEq/L (-2 to 3); ABG HCO3 33 mEq/L (21-27); ABG Oxygen Saturation 86 % (95-98); ABG PCO2 86 mmHg (35-45); ABG PH 7.19 pH Units (7.32-7.45); ABG PO2 67 mmHg (85-104); ABG TCO2 35 mEq/L (20-26); Blood Gas Modality BiLevel
[2021-11-01] MEDS: Ipratropium/Albuterol Neb 3 ML IH SCH ×3 (15:36→23:38)
[2021-11-01 15:44] LABS: ABG Base Excess 1 mEq/L (-2 to 3); ABG HCO3 30 mEq/L (21-27); ABG Oxygen Saturation 89 % (95-98); ABG PCO2 71 mmHg (35-45); ABG PH 7.24 pH Units (7.32-7.45); ABG PO2 68 mmHg (85-104); ABG TCO2 32 mEq/L (20-26); Blood Gas Modality NIV
[2021-11-01] MEDS ORDERED: 0.9 % Sodium Chloride 500 ML IVC ONE (16:52)
[2021-11-01] MEDS: methylPREDNISolone 125 MG/2 ML VIAL IVP SCH (17:01)
[2021-11-01] MEDS: *HR* Heparin 5,000 UNIT/ML VIAL SQ SCH (17:03)
[2021-11-01] MEDS: Ertapenem 1,000 MG in 0.9 % Sodium Chloride Mini Bag 100 ML IVPB SCH (17:03)
[2021-11-01] MEDS ORDERED: Piperacillin/Tazobactam 3.375 GM in 0.9 % Sodium Chloride Mini Bag 100 ML IVPB SCH (19:00)
[2021-11-01] MEDS: Budesonide/Formoterol 160/4.5 1 PUFF INH IH SCH (20:04)
[2021-11-02] MEDS: Ipratropium/Albuterol Neb 3 ML IH SCH ×5 (03:40→20:18)
[2021-11-02 05:43] LABS: Basophils % 0.2 %; Hematocrit 39.5 % (37.5-50.1); Hemoglobin 12.2 g/dL (12.9-16.9); Lymphocytes % 7.5 %; Mean Corpuscular HGB Conc 30.9 g/dL (31.6-35.5); Mean Corpuscular Hemoglobin 28.7 pg (28.0-33.3); Mean Corpuscular Volume 92.9 fL (83.0-100.0); Mean Platelet Volume 9.9 fL (9.4-12.4); Monocytes # 0.8 K/mcL (0.0-1.3); Monocytes % 6.1 %; Neutrophils # 11.7 K/mcL (1.6-8.9); Platelet Count 477 K/mcL (140-400); Red Blood Count 4.25 M/mcL (4.19-5.50); Red Cell Distribution Width 14.7 % (11.5-14.5); Segmented Neutrophils % 85.2 %; White Blood Count 13.7 K/mcL (4.3-11.1)
[2021-11-02] MEDS: methylPREDNISolone 125 MG/2 ML VIAL IVP SCH ×2 (05:57→16:44)
[2021-11-02] MEDS: *HR* Heparin 5,000 UNIT/ML VIAL SQ SCH ×2 (05:59→16:44)
[2021-11-02 06:39] LABS: BUN/Creatinine Ratio 30 (6-26); Blood Urea Nitrogen 40 mg/dL (8-23); Calcium 9.8 mg/dL (8.6-10.3); Carbon Dioxide 27 mEq/L (23-29); Chloride 94 mEq/L (98-107); Glucose 112 mg/dL (70-105); Osmolality,Calculated 289 (280-300); Potassium 4.2 mEq/L (3.5-5.1); Sodium 134 mEq/L (136-145); eGFR For African Americans > 60 (> 60); eGFR For Non-African Americans 52 (> 60)
[2021-11-02] MEDS: Budesonide/Formoterol 160/4.5 1 PUFF INH IH SCH ×2 (07:42→20:18)
[2021-11-02] MEDS ORDERED: Furosemide 20 MG TABLET PO SCH (09:00)
[2021-11-02] MEDS: Pantoprazole 40 MG VIAL IVP SCH (10:02)
[2021-11-02] MEDS: Ertapenem 1,000 MG in 0.9 % Sodium Chloride Mini Bag 100 ML IVPB SCH (10:03)
[2021-11-02] MEDS: Azithromycin 500 MG in 0.9 % Sodium Chloride 250 ML IVPB SCH (10:05)
[2021-11-02] MEDS: Thiamine (B-1) 100 MG TABLET PO SCH (10:23)
[2021-11-02] MEDS: amLODIPine 5 MG TABLET PO SCH (10:23)
[2021-11-02] MEDS: Folic Acid 1 MG TABLET PO SCH (10:23)
[2021-11-02] MEDS: Aspirin 81 MG TAB.CHEW PO SCH (10:23)
[2021-11-02 11:27] LABS: ABG Base Excess 3 mEq/L (-2 to 3); ABG HCO3 30 mEq/L (21-27); ABG Oxygen Saturation 97 % (95-98); ABG PCO2 53 mmHg (35-45); ABG PH 7.35 pH Units (7.32-7.45); ABG PO2 93 mmHg (85-104); ABG TCO2 31 mEq/L (20-26)
[2021-11-02] MEDS: polyethylene glycoL 3350 17 GM POWD.PACK PO PRN (11:58)
[2021-11-03] MEDS: Ipratropium/Albuterol Neb 3 ML IH SCH ×7 (00:24→23:15)
[2021-11-03] MEDS: methylPREDNISolone 125 MG/2 ML VIAL IVP SCH ×2 (06:01→17:16)
[2021-11-03] MEDS: *HR* Heparin 5,000 UNIT/ML VIAL SQ SCH ×2 (06:02→17:17)
[2021-11-03 06:24] LABS: Basophils % 0.1 %; Hematocrit 33.3 % (37.5-50.1); Hemoglobin 10.7 g/dL (12.9-16.9); Lymphocytes # 0.6 K/mcL (0.6-4.6); Lymphocytes % 2.7 %; Mean Corpuscular HGB Conc 32.1 g/dL (31.6-35.5); Mean Corpuscular Hemoglobin 28.9 pg (28.0-33.3); Mean Platelet Volume 9.8 fL (9.4-12.4); Monocytes # 1.2 K/mcL (0.0-1.3); Monocytes % 5.3 %; Platelet Count 480 K/mcL (140-400); Red Cell Distribution Width 14.4 % (11.5-14.5); Segmented Neutrophils % 90.9 %
[2021-11-03 06:25] LABS: Neutrophils # 20.3 K/mcL (1.6-8.9); White Blood Count 22.3 K/mcL (4.3-11.1)
[2021-11-03 06:42] LABS: BUN/Creatinine Ratio 31 (6-26); Blood Urea Nitrogen 38 mg/dL (8-23); Calcium 9.3 mg/dL (8.6-10.3); Carbon Dioxide 30 mEq/L (23-29); Chloride 93 mEq/L (98-107); Glucose 139 mg/dL (70-105); Osmolality,Calculated 279 (280-300); Sodium 129 mEq/L (136-145); eGFR For African Americans > 60 (> 60); eGFR For Non-African Americans 57 (> 60)
[2021-11-03] MEDS: Budesonide/Formoterol 160/4.5 1 PUFF INH IH SCH ×2 (07:30→20:15)
[2021-11-03] MEDS: Pantoprazole 40 MG VIAL IVP SCH (08:36)
[2021-11-03] MEDS: polyethylene glycoL 3350 17 GM POWD.PACK PO PRN (08:36)
[2021-11-03] MEDS: Azithromycin 500 MG in 0.9 % Sodium Chloride 250 ML IVPB SCH (08:38)
[2021-11-03] MEDS: Thiamine (B-1) 100 MG TABLET PO SCH (08:41)
[2021-11-03] MEDS: amLODIPine 5 MG TABLET PO SCH (08:42)
[2021-11-03] MEDS: Aspirin 81 MG TAB.CHEW PO SCH (08:42)
[2021-11-03] MEDS: Folic Acid 1 MG TABLET PO SCH (08:42)
[2021-11-03] MEDS: Ertapenem 1,000 MG in 0.9 % Sodium Chloride Mini Bag 100 ML IVPB SCH (08:49)
[2021-11-03] MEDS ORDERED: Ipratropium/Albuterol Neb 3 ML IH ONE (09:01)
[2021-11-03] MEDS ORDERED: Milk and Molasses Enema 200 ML RC ONE (12:01)
[2021-11-03] MEDS: polyethylene glycoL 3350 17 GM POWD.PACK PO SCH (12:32)
[2021-11-03] MEDS ORDERED: *HR* LORazepam 2 MG/ML VIAL IVP PRN ×3 (12:33)
[2021-11-03] MEDS: Sennosides/Docusate Sodium TABLET PO SCH (13:07)
[2021-11-03] MEDS ORDERED: E-Z-PAQUE (BARIUM SULF) SUSP 1 BOTTLE PO ONE (14:31)
[2021-11-03] MEDS ORDERED: E-Z-HD (BARIUM SULF) SUSPENSION PO ONE (14:31)
[2021-11-03] MEDS: levoFLOXacin 750 MG/150 ML 750 MG/150 ML BAG IVPB SCH (15:18)
[2021-11-03 16:12] LABS: VBG HCO3 30 mEq/L (21-27); VBG PCO2 55 mmHg (41-51); VBG PH 7.35 pH Units (7.32-7.42); VBG PO2 81 mmHg (25-50)
[2021-11-03] MEDS: MetroNIDAZOLE 500 MG/100 ML 500 MG/100 ML BAG IVPB SCH ×2 (17:17→23:16)
[2021-11-04 03:45] LABS: Basophils % 0.1 %; Hematocrit 30.8 % (37.5-50.1); Hemoglobin 10.1 g/dL (12.9-16.9); Immature Granulocytes % 0.8 % (0-4); Lymphocytes # 0.3 K/mcL (0.6-4.6); Lymphocytes % 2.6 %; Mean Corpuscular HGB Conc 32.8 g/dL (31.6-35.5); Mean Corpuscular Hemoglobin 29.3 pg (28.0-33.3); Mean Corpuscular Volume 89.3 fL (83.0-100.0); Mean Platelet Volume 9.6 fL (9.4-12.4); Monocytes # 0.6 K/mcL (0.0-1.3); Monocytes % 4.7 %; Platelet Count 513 K/mcL (140-400); Red Blood Count 3.45 M/mcL (4.19-5.50); Red Cell Distribution Width 14.4 % (11.5-14.5); Segmented Neutrophils % 91.8 %; White Blood Count 13.1 K/mcL (4.3-11.1)
[2021-11-04 03:51] LABS: BUN/Creatinine Ratio 30 (6-26); Blood Urea Nitrogen 32 mg/dL (8-23); Calcium 9.4 mg/dL (8.6-10.3); Carbon Dioxide 30 mEq/L (23-29); Chloride 93 mEq/L (98-107); Glucose 151 mg/dL (70-105); Osmolality,Calculated 278 (280-300); Potassium 4.4 mEq/L (3.5-5.1); Sodium 129 mEq/L (136-145); eGFR For African Americans > 60 (> 60); eGFR For Non-African Americans > 60 (> 60)
[2021-11-04] MEDS: Ipratropium/Albuterol Neb 3 ML IH SCH ×6 (04:27→23:24)
[2021-11-04] MEDS: methylPREDNISolone 125 MG/2 ML VIAL IVP SCH ×2 (05:01→17:17)
[2021-11-04] MEDS: *HR* Heparin 5,000 UNIT/ML VIAL SQ SCH ×2 (05:01→17:18)
[2021-11-04] MEDS: Budesonide/Formoterol 160/4.5 1 PUFF INH IH SCH ×2 (08:18→19:46)
[2021-11-04] MEDS: Pantoprazole 40 MG VIAL IVP SCH (08:40)
[2021-11-04] MEDS: amLODIPine 5 MG TABLET PO SCH (08:41)
[2021-11-04] MEDS: Thiamine (B-1) 100 MG TABLET PO SCH (08:41)
[2021-11-04] MEDS: Folic Acid 1 MG TABLET PO SCH (08:41)
[2021-11-04] MEDS: Sennosides/Docusate Sodium TABLET PO SCH (08:41)
[2021-11-04] MEDS: MetroNIDAZOLE 500 MG/100 ML 500 MG/100 ML BAG IVPB SCH ×3 (08:41→23:49)
[2021-11-04] MEDS: Aspirin 81 MG TAB.CHEW PO SCH (08:41)
[2021-11-04] MEDS: levoFLOXacin 750 MG/150 ML 750 MG/150 ML BAG IVPB SCH (08:58)
[2021-11-04] MEDS: polyethylene glycoL 3350 17 GM POWD.PACK PO SCH (09:31)
[2021-11-04] MEDS: Vancomycin 1,250 MG/262.5 ML IV.SOLN IVPB SCH (10:34)
[2021-11-05] MEDS: Ipratropium/Albuterol Neb 3 ML IH SCH ×6 (03:32→22:58)
[2021-11-05] MEDS: methylPREDNISolone 125 MG/2 ML VIAL IVP SCH (05:40)
[2021-11-05] MEDS: *HR* Heparin 5,000 UNIT/ML VIAL SQ SCH ×2 (05:41→16:12)
[2021-11-05 06:18] LABS: Basophils # 0.1 K/mcL (0.0-0.2); Basophils % 0.5 %; Hematocrit 33.6 % (37.5-50.1); Hemoglobin 10.6 g/dL (12.9-16.9); Immature Granulocytes % 3.6 % (0-4); Lymphocytes # 0.5 K/mcL (0.6-4.6); Lymphocytes % 3.4 %; Mean Corpuscular HGB Conc 31.5 g/dL (31.6-35.5); Mean Corpuscular Hemoglobin 28.6 pg (28.0-33.3); Mean Corpuscular Volume 90.8 fL (83.0-100.0); Mean Platelet Volume 9.2 fL (9.4-12.4); Monocytes # 1.1 K/mcL (0.0-1.3); Monocytes % 7.3 %; Neutrophils # 12.6 K/mcL (1.6-8.9); Platelet Count 506 K/mcL (140-400); Red Cell Distribution Width 14.6 % (11.5-14.5); Segmented Neutrophils % 85.2 %; White Blood Count 14.8 K/mcL (4.3-11.1)
[2021-11-05 06:42] LABS: BUN/Creatinine Ratio 23 (6-26); Blood Urea Nitrogen 24 mg/dL (8-23); Calcium 9.6 mg/dL (8.6-10.3); Carbon Dioxide 29 mEq/L (23-29); Chloride 95 mEq/L (98-107); Glucose 133 mg/dL (70-105); Osmolality,Calculated 276 (280-300); Sodium 130 mEq/L (136-145); eGFR For African Americans > 60 (> 60); eGFR For Non-African Americans > 60 (> 60)
[2021-11-05] MEDS: Budesonide/Formoterol 160/4.5 1 PUFF INH IH SCH ×2 (07:39→19:16)
[2021-11-05] MEDS: levoFLOXacin 750 MG/150 ML 750 MG/150 ML BAG IVPB SCH (08:34)
[2021-11-05] MEDS: MetroNIDAZOLE 500 MG/100 ML 500 MG/100 ML BAG IVPB SCH (08:36)
[2021-11-05] MEDS: Aspirin 81 MG TAB.CHEW PO SCH (08:40)
[2021-11-05] MEDS: Folic Acid 1 MG TABLET PO SCH (08:40)
[2021-11-05] MEDS: Thiamine (B-1) 100 MG TABLET PO SCH (08:41)
[2021-11-05] MEDS: Sennosides/Docusate Sodium TABLET PO SCH (08:41)
[2021-11-05] MEDS: amLODIPine 5 MG TABLET PO SCH (08:41)
[2021-11-05] MEDS: polyethylene glycoL 3350 17 GM POWD.PACK PO SCH (08:43)
[2021-11-05] MEDS: Vancomycin 1,250 MG/262.5 ML IV.SOLN IVPB SCH (10:41)
[2021-11-05] MEDS: metroNIDAZOLE 500 MG TABLET PO SCH (20:16)
[2021-11-05 23:35] VITALS: TEMP 97.6
[2021-11-06 03:22] VITALS: BP 139/49; PULSE 68
[2021-11-06] MEDS: Ipratropium/Albuterol Neb 3 ML IH SCH ×4 (03:47→15:34)
[2021-11-06] MEDS: *HR* Heparin 5,000 UNIT/ML VIAL SQ SCH ×2 (06:27→18:00)
[2021-11-06] MEDS: Budesonide/Formoterol 160/4.5 1 PUFF INH IH SCH (07:29)
[2021-11-06] MEDS: amLODIPine 5 MG TABLET PO SCH (08:03)
[2021-11-06] MEDS: Thiamine (B-1) 100 MG TABLET PO SCH (08:03)
[2021-11-06] MEDS: Sennosides/Docusate Sodium TABLET PO SCH (08:03)
[2021-11-06] MEDS: metroNIDAZOLE 500 MG TABLET PO SCH ×2 (08:03→15:36)
[2021-11-06] MEDS: Aspirin 81 MG TAB.CHEW PO SCH (08:03)
[2021-11-06] MEDS: Folic Acid 1 MG TABLET PO SCH (08:03)
[2021-11-06] MEDS: polyethylene glycoL 3350 17 GM POWD.PACK PO SCH (08:03)
[2021-11-06] MEDS ORDERED: MethylPREDNISolone 40 MG/ML VIAL IVP SCH (09:00)
[2021-11-06] MEDS ORDERED: levoFLOXacin 750 MG TABLET PO SCH (09:00)
[2021-11-06 11:35] VITALS: O2SAT 97
[2021-11-06 13:40] LABS: Basophils # 0.1 K/mcL (0.0-0.2); Basophils % 0.5 %; Eosinophils % 0.1 %; Hematocrit 37.9 % (37.5-50.1); Hemoglobin 11.6 g/dL (12.9-16.9); Immature Granulocytes % 4.3 % (0-4); Lymphocytes # 0.5 K/mcL (0.6-4.6); Lymphocytes % 2.8 %; Mean Corpuscular HGB Conc 30.6 g/dL (31.6-35.5); Mean Corpuscular Hemoglobin 28.3 pg (28.0-33.3); Mean Corpuscular Volume 92.4 fL (83.0-100.0); Mean Platelet Volume 9.4 fL (9.4-12.4); Monocytes # 0.5 K/mcL (0.0-1.3); Monocytes % 3.2 %; Neutrophils # 15.1 K/mcL (1.6-8.9); Platelet Count 561 K/mcL (140-400); Red Cell Distribution Width 15.3 % (11.5-14.5); Segmented Neutrophils % 89.1 %
[2021-11-06 14:06] LABS: Alanine Aminotransferase 16 Units/L (7-52); Albumin 3.6 g/dL (3.5-5.7); Albumin/Globulin Ratio 1.3 (1.1-2.2); Alkaline Phosphatase 68 Units/L (34-104); Aspartate Amino Transferase 28 Units/L (13-39); BUN/Creatinine Ratio 20 (6-26); Bilirubin,Total 0.4 mg/dL (0.3-1.0); Blood Urea Nitrogen 21 mg/dL (8-23); Calcium 9.6 mg/dL (8.6-10.3); Carbon Dioxide 29 mEq/L (23-29); Chloride 95 mEq/L (98-107); Globulin 2.7 g/dL (2.4-3.5); Glucose 173 mg/dL (70-105); Osmolality,Calculated 277 (280-300); Potassium 4.9 mEq/L (3.5-5.1); Sodium 130 mEq/L (136-145); Total Protein 6.3 g/dL (6.4-8.9); eGFR For African Americans > 60 (> 60); eGFR For Non-African Americans > 60 (> 60)
[2021-11-06 18:59] LABS: Adenovirus Not Detected (Not Detect); Bordetella Pertussis Not Detected (Not Detect); Coronavirus 229E Not Detected (Not Detect); Coronavirus HKU1 Not Detected (Not Detect); Coronavirus NL63 Not Detected (Not Detect); Coronavirus OC43 Not Detected (Not Detect); Human Metapneumovirus Not Detected (Not Detect); Human Rhinovirus/Enterovirus Not Detected (Not Detect); Influenza A Subtype 2009 H1 Not Detected (Not Detect); Influenza B Not Detected (Not Detect); Parainfluenza Virus 1 Not Detected (Not Detect); Parainfluenza Virus 2 Not Detected (Not Detect); Parainfluenza Virus 3 Not Detected (Not Detect); Parainfluenza Virus 4 Not Detected (Not Detect); Respiratory Syncytial Virus Not Detected (Not Detect); SARS-CoV-2 Not Detected (Not Detect)
[2021-11-06 19:00] LABS: Chlamydophila pneumoniae Not Detected (Not Detect); Mycoplasma pneumoniae Not Detected (Not Detect)
== END 2021-11-06 17:05 | DRG 871 ==
LOC: 2NENU 09:19 → EMEROOARM 09:19 → 2NENU 16:11 → SUATTDRO 17:58
PROVIDERS: ADMIT Internal Medicine; ATTEND Family Medicine

== ENCOUNTER 2022-01-19 14:07 | Inpatient (IN) ==
[2022-01-19] MEDS ORDERED: cefTRIAXone 1,000 MG in 0.9 % Sodium Chloride 10 ML IVP ONE (14:15)
[2022-01-19] MEDS ORDERED: Ipratropium/Albuterol Neb 3 ML IH ONE (14:15)
[2022-01-19] MEDS ORDERED: methylPREDNISolone 125 MG/2 ML VIAL IVP ONE (14:15)
[2022-01-19 14:32] LABS: ABG Base Excess 5 mEq/L (-2 to 3); ABG HCO3 31 mEq/L (21-27); ABG Oxygen Saturation 93 % (95-98); ABG PCO2 54 mmHg (35-45); ABG PH 7.37 pH Units (7.32-7.45); ABG PO2 69 mmHg (85-104); ABG TCO2 33 mEq/L (20-26); Blood Gas Pressure Support 12 cm H2O
[2022-01-19 14:51] LABS: Hematocrit 34.8 % (37.5-50.1); Hemoglobin 10.9 g/dL (12.9-16.9); Lymphocytes # 0.7 K/mcL (0.6-4.6); Mean Corpuscular HGB Conc 31.3 g/dL (31.6-35.5); Mean Corpuscular Hemoglobin 29.1 pg (28.0-33.3); Mean Corpuscular Volume 92.8 fL (83.0-100.0); Mean Platelet Volume 10.1 fL (9.4-12.4); Platelet Count 567 K/mcL (140-400); Red Blood Count 3.75 M/mcL (4.19-5.50); Red Cell Distribution Width 14.7 % (11.5-14.5)
[2022-01-19 14:59] LABS: INR 1.1; Prothrombin Time 12.3 Seconds (9.4-12.1); White Blood Count 34.8 K/mcL (4.3-11.1)
[2022-01-19 15:01] LABS: Activated Partial Thrombo Time 32.4 Seconds (26.0-36.0)
[2022-01-19 15:11] LABS: Monocytes # 4.2 K/mcL (0.0-1.3); Neutrophils # 29.9 K/mcL (1.6-8.9); Platelet Estimate Increased (Normal)
[2022-01-19 15:15] LABS: Alanine Aminotransferase 15 Units/L (7-52); Albumin/Globulin Ratio 1.1 (1.1-2.2); Alkaline Phosphatase 93 Units/L (34-104); Aspartate Amino Transferase 19 Units/L (13-39); BUN/Creatinine Ratio 17 (6-26); Bilirubin,Direct 0.4 mg/dL (0.0-0.2); Bilirubin,Indirect 0.5 mg/dL (0.0-1.0); Bilirubin,Total 0.9 mg/dL (0.3-1.0); Blood Urea Nitrogen 18 mg/dL (8-23); Calcium 10.1 mg/dL (8.6-10.3); Carbon Dioxide 35 mEq/L (23-29); Chloride 87 mEq/L (98-107); Globulin 3.8 g/dL (2.4-3.5); Glucose 142 mg/dL (70-105); Osmolality,Calculated 272 (280-300); Potassium 3.8 mEq/L (3.5-5.1); Sodium 129 mEq/L (136-145); Total Protein 7.8 g/dL (6.4-8.9); Troponin I 0.03 ng/mL (< 0.04); eGFR For African Americans > 60 (> 60); eGFR For Non-African Americans > 60 (> 60)
[2022-01-19 15:38] LABS: Adenovirus Not Detected (Not Detect); Bordetella Pertussis Not Detected (Not Detect); Chlamydophila pneumoniae Not Detected (Not Detect); Coronavirus 229E Not Detected (Not Detect); Coronavirus HKU1 Not Detected (Not Detect); Coronavirus NL63 Not Detected (Not Detect); Coronavirus OC43 Not Detected (Not Detect); Human Metapneumovirus Not Detected (Not Detect); Human Rhinovirus/Enterovirus Not Detected (Not Detect); Influenza A Subtype 2009 H1 Not Detected (Not Detect); Influenza B Not Detected (Not Detect); Mycoplasma pneumoniae Not Detected (Not Detect); Parainfluenza Virus 1 Not Detected (Not Detect); Parainfluenza Virus 2 Not Detected (Not Detect); Parainfluenza Virus 3 Not Detected (Not Detect); Parainfluenza Virus 4 Not Detected (Not Detect); Respiratory Syncytial Virus Not Detected (Not Detect); SARS-CoV-2 Not Detected (Not Detect)
[2022-01-19] MEDS ORDERED: 0.9 % Sodium Chloride 1,000 ML IV ONE (15:57)
[2022-01-19] MEDS ORDERED: Ipratropium Neb 0.5 MG NEBULIZER IH PRN (16:45)
[2022-01-19] MEDS ORDERED: Ondansetron 4 MG/2 ML VIAL IVP PRN (17:01)
[2022-01-19] MEDS ORDERED: Acetaminophen 325 MG TABLET PO PRN (17:01)
[2022-01-19] MEDS ORDERED: Naloxone 0.4 MG/ML INJ IVP PRN (17:01)
[2022-01-19] MEDS ORDERED: MOM Conc 10 ML UD.LIQ PO PRN (17:01)
[2022-01-19] MEDS: Azithromycin 500 MG in 0.9 % Sodium Chloride 250 ML IVPB SCH (17:16)
[2022-01-19] MEDS: *HR* Heparin 5,000 UNIT/ML VIAL SQ SCH (18:43)
[2022-01-19] MEDS: Ipratropium/Albuterol Neb 3 ML IH SCH ×2 (20:20→21:58)
[2022-01-19 22:07] LABS: BUN/Creatinine Ratio 20 (6-26); Blood Urea Nitrogen 19 mg/dL (8-23); Calcium 9.3 mg/dL (8.6-10.3); Carbon Dioxide 28 mEq/L (23-29); Chloride 94 mEq/L (98-107); Glucose 145 mg/dL (70-105); Osmolality,Calculated 275 (280-300); Potassium 4.1 mEq/L (3.5-5.1); Sodium 130 mEq/L (136-145); eGFR For African Americans > 60 (> 60); eGFR For Non-African Americans > 60 (> 60)
[2022-01-19] MEDS: Piperacillin/Tazobactam 3.375 GM in 0.9 % Sodium Chloride Mini Bag 100 ML IVPB SCH (23:36)
[2022-01-20] MEDS ORDERED: 0.9 % Sodium Chloride 500 ML IVC ONE (00:02)
[2022-01-20] MEDS ORDERED: Iopamidol - 370 500 ML MLS IVP ONE (00:03)
[2022-01-20 02:05] LABS: Bacteria,Urine Many per hpf (None-Few); Bilirubin,Urine Negative (Negative); Blood,Urine Trace (Negative); Clarity,Urine Turbid (Clear); Color,Urine Yellow (Yellow); Glucose,Urine (UA) Normal (Normal); Ketones,Urine Trace mg/dL (Negative); Leukocyte Esterase,Urine Large (Negative); Mucus,Urine Many per lpf (None-Few); Nitrite,Urine Negative (Negative); Protein,Urine 70 mg/dL (Neg-Trace); Specific Gravity,Urine 1.017 (1.010-1.025); Squamous Epithelial Cell,Urine Few per hpf (None-Few); Urobilinogen,Urine Normal (Normal); WBC,Urine TNTC per hpf (0-3)
[2022-01-20] MEDS: Ipratropium/Albuterol Neb 3 ML IH SCH ×4 (03:58→22:08)
[2022-01-20] MEDS: *HR* Heparin 5,000 UNIT/ML VIAL SQ SCH ×2 (05:58→17:54)
[2022-01-20 08:34] LABS: Mean Platelet Volume 10.2 fL (9.4-12.4)
[2022-01-20 08:35] LABS: VBG HCO3 30 mEq/L (21-27); VBG PCO2 57 mmHg (41-51); VBG PH 7.34 pH Units (7.32-7.42); VBG PO2 58 mmHg (25-50)
[2022-01-20 08:35] LABS: Hematocrit 31.4 % (37.5-50.1); Hemoglobin 9.7 g/dL (12.9-16.9); Mean Corpuscular HGB Conc 30.9 g/dL (31.6-35.5); Platelet Count 484 K/mcL (140-400); Red Blood Count 3.34 M/mcL (4.19-5.50); Red Cell Distribution Width 14.8 % (11.5-14.5)
[2022-01-20] MEDS: 0.9 % Sodium Chloride 1,000 ML IVC SCH ×2 (08:50→16:42)
[2022-01-20] MEDS: Piperacillin/Tazobactam 3.375 GM in 0.9 % Sodium Chloride Mini Bag 100 ML IVPB SCH ×2 (08:51→16:42)
[2022-01-20 08:54] LABS: BUN/Creatinine Ratio 25 (6-26); Blood Urea Nitrogen 26 mg/dL (8-23); Calcium 9.7 mg/dL (8.6-10.3); Carbon Dioxide 33 mEq/L (23-29); Chloride 95 mEq/L (98-107); Glucose 136 mg/dL (70-105); Magnesium 2.3 mg/dL (1.6-2.6); Osmolality,Calculated 285 (280-300); Phosphorous 3.5 mg/dL (2.7-4.5); Potassium 4.3 mEq/L (3.5-5.1); Sodium 134 mEq/L (136-145); eGFR For African Americans > 60 (> 60); eGFR For Non-African Americans > 60 (> 60)
[2022-01-20] MEDS: MethylPREDNISolone 40 MG/ML VIAL IVP SCH ×2 (09:13→17:54)
[2022-01-20 09:39] LABS: A.calcoaceticus-baumannii cplx Not Detected (Not Detect); Bacteroides fragilis by PCR Not Detected (Not Detect); Enterobacter cloacae Cmplx PCR Not Detected (Not Detect); Enterobacterales by PCR Not Detected (Not Detect); Enterococcus faecalis by PCR Not Detected (Not Detect); Enterococcus faecium by PCR Not Detected (Not Detect); Escherichia coli by PCR Not Detected (Not Detect); Staph epidermidis by PCR Not Detected (Not Detect); Staph lugdunensis by PCR Not Detected (Not Detect); Staphylococcus aureus by PCR DETECTED (Not Detect); Streptococcus agalactiae(B)PCR Not Detected (Not Detect); Streptococcus by PCR Not Detected (Not Detect); Streptococcus pneumoniae PCR Not Detected (Not Detect); Streptococcus pyogenes (A) PCR Not Detected (Not Detect); mecA/C & MREJ (MRSA) Gene DETECTED (Not Detect)
[2022-01-20 09:40] LABS: Candida albicans by PCR Not Detected (Not Detect); Candida auris by PCR Not Detected (Not Detect); Candida glabrata by PCR Not Detected (Not Detect); Candida krusei by PCR Not Detected (Not Detect); Candida parapsilosis by PCR Not Detected (Not Detect); Candida tropicalis by PCR Not Detected (Not Detect); Crypto. neoformans/gattii PCR Not Detected (Not Detect); Klebs. pneumoniae group by PCR Not Detected (Not Detect); Klebsiella aerogenes by PCR Not Detected (Not Detect); Klebsiella oxytoca by PCR Not Detected (Not Detect); Proteus by PCR Not Detected (Not Detect); Pseudomonas aeruginosa by PCR Not Detected (Not Detect); Salmonella species by PCR Not Detected (Not Detect); Serratia marcescens by PCR Not Detected (Not Detect); Stenotrophomonas maltophilia Not Detected (Not Detect)
[2022-01-20 09:45] LABS: Lymphocytes # 1.2 K/mcL (0.6-4.6); Monocytes # 1.7 K/mcL (0.0-1.3); Neutrophils # 26.1 K/mcL (1.6-8.9)
[2022-01-20] MEDS ORDERED: cefTRIAXone 1,000 MG in 0.9 % Sodium Chloride 10 ML IVPB SCH (14:00)
[2022-01-20] MEDS: Azithromycin 500 MG in 0.9 % Sodium Chloride 250 ML IVPB SCH (16:42)
[2022-01-21] MEDS: Piperacillin/Tazobactam 3.375 GM in 0.9 % Sodium Chloride Mini Bag 100 ML IVPB SCH ×3 (00:24→17:30)
[2022-01-21 02:35] LABS: Basophils % 0.1 %; Mean Corpuscular Hemoglobin 29.5 pg (28.0-33.3); Mean Platelet Volume 10.2 fL (9.4-12.4); Red Cell Distribution Width 14.9 % (11.5-14.5)
[2022-01-21 02:36] LABS: Hematocrit 29.1 % (37.5-50.1); Immature Granulocytes % 1.2 % (0-4); Lymphocytes # 0.6 K/mcL (0.6-4.6); Mean Corpuscular HGB Conc 30.9 g/dL (31.6-35.5); Mean Corpuscular Volume 95.4 fL (83.0-100.0); Monocytes # 1.8 K/mcL (0.0-1.3); Neutrophils # 27.7 K/mcL (1.6-8.9); Platelet Count 482 K/mcL (140-400); Red Blood Count 3.05 M/mcL (4.19-5.50); Segmented Neutrophils % 90.7 %
[2022-01-21 02:39] LABS: White Blood Count 30.5 K/mcL (4.3-11.1)
[2022-01-21 02:55] LABS: BUN/Creatinine Ratio 28 (6-26); Blood Urea Nitrogen 27 mg/dL (8-23); Calcium 9.2 mg/dL (8.6-10.3); Carbon Dioxide 28 mEq/L (23-29); Chloride 96 mEq/L (98-107); Glucose 124 mg/dL (70-105); Magnesium 2.1 mg/dL (1.6-2.6); Osmolality,Calculated 279 (280-300); Potassium 4.1 mEq/L (3.5-5.1); Sodium 131 mEq/L (136-145); eGFR For African Americans > 60 (> 60); eGFR For Non-African Americans > 60 (> 60)
[2022-01-21] MEDS: Ipratropium/Albuterol Neb 3 ML IH SCH ×4 (03:40→21:40)
[2022-01-21] MEDS: MethylPREDNISolone 40 MG/ML VIAL IVP SCH ×2 (05:09→09:40)
[2022-01-21] MEDS: *HR* Heparin 5,000 UNIT/ML VIAL SQ SCH ×2 (05:09→17:29)
[2022-01-21] MEDS: Vancomycin 1,250 MG/262.5 ML IV.SOLN IVPB SCH (09:40)
[2022-01-21] MEDS: Aspirin 81 MG TAB.CHEW PO SCH (09:41)
[2022-01-21] MEDS: Thiamine (B-1) 100 MG TABLET PO SCH (09:41)
[2022-01-21] MEDS: Folic Acid 1 MG TABLET PO SCH (09:41)
[2022-01-21] MEDS: Furosemide 20 MG TABLET PO SCH (09:41)
[2022-01-21] MEDS: Budesonide/Formoterol 160/4.5 1 PUFF INH IH SCH ×2 (10:42→21:40)
[2022-01-21] MEDS: Azithromycin 500 MG in 0.9 % Sodium Chloride 250 ML IVPB SCH (17:30)
[2022-01-22] MEDS: Piperacillin/Tazobactam 3.375 GM in 0.9 % Sodium Chloride Mini Bag 100 ML IVPB SCH ×2 (00:05→09:19)
[2022-01-22 03:50] LABS: Basophils % 0.1 %; Hematocrit 29.8 % (37.5-50.1); Hemoglobin 9.1 g/dL (12.9-16.9); Immature Granulocytes % 1.3 % (0-4); Lymphocytes # 0.7 K/mcL (0.6-4.6); Lymphocytes % 3.1 %; Mean Corpuscular HGB Conc 30.5 g/dL (31.6-35.5); Mean Corpuscular Hemoglobin 28.9 pg (28.0-33.3); Mean Corpuscular Volume 94.6 fL (83.0-100.0); Monocytes # 1.4 K/mcL (0.0-1.3); Monocytes % 6.3 %; Neutrophils # 19.6 K/mcL (1.6-8.9); Platelet Count 525 K/mcL (140-400); Red Blood Count 3.15 M/mcL (4.19-5.50); Red Cell Distribution Width 14.7 % (11.5-14.5); Segmented Neutrophils % 89.2 %; White Blood Count 21.9 K/mcL (4.3-11.1)
[2022-01-22] MEDS: Ipratropium/Albuterol Neb 3 ML IH SCH ×3 (04:05→15:14)
[2022-01-22 04:11] LABS: BUN/Creatinine Ratio 21 (6-26); Blood Urea Nitrogen 19 mg/dL (8-23); Calcium 9.1 mg/dL (8.6-10.3); Carbon Dioxide 28 mEq/L (23-29); Chloride 98 mEq/L (98-107); Glucose 112 mg/dL (70-105); Osmolality,Calculated 279 (280-300); Phosphorous 2.2 mg/dL (2.7-4.5); Potassium 3.7 mEq/L (3.5-5.1); Sodium 133 mEq/L (136-145); eGFR For African Americans > 60 (> 60); eGFR For Non-African Americans > 60 (> 60)
[2022-01-22] MEDS: *HR* Heparin 5,000 UNIT/ML VIAL SQ SCH ×2 (06:31→16:42)
[2022-01-22] MEDS: Vancomycin 1,250 MG/262.5 ML IV.SOLN IVPB SCH (09:18)
[2022-01-22] MEDS: MethylPREDNISolone 40 MG/ML VIAL IVP SCH (09:18)
[2022-01-22] MEDS: Folic Acid 1 MG TABLET PO SCH (09:19)
[2022-01-22] MEDS: Thiamine (B-1) 100 MG TABLET PO SCH (09:19)
[2022-01-22] MEDS: Aspirin 81 MG TAB.CHEW PO SCH (09:19)
[2022-01-22] MEDS: Furosemide 20 MG TABLET PO SCH (09:19)
[2022-01-22] MEDS: Budesonide/Formoterol 160/4.5 1 PUFF INH IH SCH ×2 (10:35→22:43)
[2022-01-22] MEDS: Ertapenem 1,000 MG in 0.9 % Sodium Chloride Mini Bag 100 ML IVPB SCH (13:23)
[2022-01-22] MEDS ORDERED: Perflutren Lipid Microsphere 1.3 ML in 0.9 % Sodium Chloride 8.7 ML IVP PRN (15:47)
[2022-01-22] MEDS: Levalbuterol 1 PUFF INHALER IH SCH ×2 (15:57→22:42)
[2022-01-22] MEDS: Azithromycin 500 MG in 0.9 % Sodium Chloride 250 ML IVPB SCH (16:42)
[2022-01-23 01:45] LABS: Basophils % 0.2 %; Eosinophils % 0.1 %; Hematocrit 33.9 % (37.5-50.1); Hemoglobin 10.2 g/dL (12.9-16.9); Lymphocytes % 5.1 %; Mean Corpuscular HGB Conc 30.1 g/dL (31.6-35.5); Mean Corpuscular Hemoglobin 28.7 pg (28.0-33.3); Mean Corpuscular Volume 95.5 fL (83.0-100.0); Mean Platelet Volume 9.8 fL (9.4-12.4); Monocytes # 1.4 K/mcL (0.0-1.3); Monocytes % 7.5 %; Neutrophils # 16.1 K/mcL (1.6-8.9); Platelet Count 568 K/mcL (140-400); Red Blood Count 3.55 M/mcL (4.19-5.50); Red Cell Distribution Width 14.8 % (11.5-14.5); Segmented Neutrophils % 85.1 %; White Blood Count 18.9 K/mcL (4.3-11.1)
[2022-01-23 02:04] LABS: BUN/Creatinine Ratio 21 (6-26); Blood Urea Nitrogen 18 mg/dL (8-23); Calcium 8.9 mg/dL (8.6-10.3); Carbon Dioxide 27 mEq/L (23-29); Chloride 100 mEq/L (98-107); Glucose 89 mg/dL (70-105); Magnesium 1.9 mg/dL (1.6-2.6); Osmolality,Calculated 277 (280-300); Potassium 4.1 mEq/L (3.5-5.1); Sodium 133 mEq/L (136-145); eGFR For African Americans > 60 (> 60); eGFR For Non-African Americans > 60 (> 60)
[2022-01-23] MEDS: Levalbuterol 1 PUFF INHALER IH SCH ×4 (04:02→23:58)
[2022-01-23] MEDS: *HR* Heparin 5,000 UNIT/ML VIAL SQ SCH ×2 (05:55→17:03)
[2022-01-23] MEDS ORDERED: *HR* Metoprolol 5 MG/5 ML VIAL IVP ONE ×2 (10:38→17:06)
[2022-01-23] MEDS: Ertapenem 1,000 MG in 0.9 % Sodium Chloride Mini Bag 100 ML IVPB SCH (11:22)
[2022-01-23] MEDS: MethylPREDNISolone 40 MG/ML VIAL IVP SCH (11:22)
[2022-01-23] MEDS: Aspirin 81 MG TAB.CHEW PO SCH (11:23)
[2022-01-23] MEDS: Thiamine (B-1) 100 MG TABLET PO SCH (11:23)
[2022-01-23] MEDS: Folic Acid 1 MG TABLET PO SCH (11:23)
[2022-01-23] MEDS: Budesonide/Formoterol 160/4.5 1 PUFF INH IH SCH ×2 (11:25→23:58)
[2022-01-23] MEDS: Vancomycin 1,500 MG/265 ML IV.SOLN IVPB SCH (12:42)
[2022-01-23] MEDS: Azithromycin 500 MG in 0.9 % Sodium Chloride 250 ML IVPB SCH (17:03)
[2022-01-24 03:03] LABS: Basophils # 0.1 K/mcL (0.0-0.2); Basophils % 0.4 %; Eosinophils % 0.1 %; Hematocrit 32.9 % (37.5-50.1); Immature Granulocytes % 3.4 % (0-4); Lymphocytes # 1.1 K/mcL (0.6-4.6); Lymphocytes % 5.2 %; Mean Corpuscular HGB Conc 30.4 g/dL (31.6-35.5); Mean Corpuscular Hemoglobin 28.8 pg (28.0-33.3); Mean Corpuscular Volume 94.8 fL (83.0-100.0); Mean Platelet Volume 9.8 fL (9.4-12.4); Monocytes # 1.2 K/mcL (0.0-1.3); Monocytes % 5.3 %; Neutrophils # 18.5 K/mcL (1.6-8.9); Platelet Count 593 K/mcL (140-400); Red Blood Count 3.47 M/mcL (4.19-5.50); Segmented Neutrophils % 85.6 %; White Blood Count 21.6 K/mcL (4.3-11.1)
[2022-01-24 03:15] LABS: BUN/Creatinine Ratio 20 (6-26); Blood Urea Nitrogen 16 mg/dL (8-23); Calcium 8.9 mg/dL (8.6-10.3); Carbon Dioxide 32 mEq/L (23-29); Chloride 98 mEq/L (98-107); Glucose 105 mg/dL (70-105); Osmolality,Calculated 276 (280-300); Potassium 4.2 mEq/L (3.5-5.1); Sodium 132 mEq/L (136-145); eGFR For African Americans > 60 (> 60); eGFR For Non-African Americans > 60 (> 60)
[2022-01-24] MEDS: Levalbuterol 1 PUFF INHALER IH SCH ×4 (04:25→22:15)
[2022-01-24] MEDS: *HR* Heparin 5,000 UNIT/ML VIAL SQ SCH ×2 (06:25→17:51)
[2022-01-24] MEDS ORDERED: *HR* Metoprolol 5 MG/5 ML VIAL IVP ONE (08:32)
[2022-01-24] MEDS: Folic Acid 1 MG TABLET PO SCH (09:11)
[2022-01-24] MEDS: Aspirin 81 MG TAB.CHEW PO SCH (09:12)
[2022-01-24] MEDS: Ertapenem 1,000 MG in 0.9 % Sodium Chloride Mini Bag 100 ML IVPB SCH (09:12)
[2022-01-24] MEDS: Thiamine (B-1) 100 MG TABLET PO SCH (09:12)
[2022-01-24] MEDS: MethylPREDNISolone 40 MG/ML VIAL IVP SCH (09:14)
[2022-01-24] MEDS: Budesonide/Formoterol 160/4.5 1 PUFF INH IH SCH ×2 (10:41→22:16)
[2022-01-24] MEDS: Vancomycin 1,500 MG/265 ML IV.SOLN IVPB SCH (13:22)
[2022-01-24] MEDS: Azithromycin 500 MG in 0.9 % Sodium Chloride 250 ML IVPB SCH (17:52)
[2022-01-24] MEDS: *HR* Digoxin 0.5 MG/2 ML AMPUL IVP SCH (21:13)
[2022-01-25] MEDS: *HR* Digoxin 0.5 MG/2 ML AMPUL IVP SCH (03:24)
[2022-01-25 03:27] LABS: Hemoglobin 10.2 g/dL (12.9-16.9); Mean Corpuscular Hemoglobin 28.7 pg (28.0-33.3); Red Blood Count 3.55 M/mcL (4.19-5.50)
[2022-01-25 03:29] LABS: Hematocrit 33.7 % (37.5-50.1); Mean Corpuscular HGB Conc 30.3 g/dL (31.6-35.5); Mean Corpuscular Volume 94.9 fL (83.0-100.0); Mean Platelet Volume 9.9 fL (9.4-12.4); Platelet Count 630 K/mcL (140-400); Red Cell Distribution Width 15.1 % (11.5-14.5); White Blood Count 29.2 K/mcL (4.3-11.1)
[2022-01-25 03:44] LABS: BUN/Creatinine Ratio 21 (6-26); Blood Urea Nitrogen 16 mg/dL (8-23); Calcium 8.9 mg/dL (8.6-10.3); Carbon Dioxide 32 mEq/L (23-29); Chloride 99 mEq/L (98-107); Glucose 103 mg/dL (70-105); Magnesium 1.9 mg/dL (1.6-2.6); Osmolality,Calculated 279 (280-300); Potassium 4.3 mEq/L (3.5-5.1); Sodium 134 mEq/L (136-145); eGFR For African Americans > 60 (> 60); eGFR For Non-African Americans > 60 (> 60)
[2022-01-25] MEDS: Levalbuterol 1 PUFF INHALER IH SCH ×4 (03:49→21:04)
[2022-01-25 04:21] LABS: Lymphocytes # 2.3 K/mcL (0.6-4.6); Monocytes # 0.6 K/mcL (0.0-1.3); Neutrophils # 26.3 K/mcL (1.6-8.9)
[2022-01-25] MEDS: *HR* Heparin 5,000 UNIT/ML VIAL SQ SCH ×2 (05:27→17:28)
[2022-01-25] MEDS ORDERED: *HR* Digoxin 0.5 MG/2 ML AMPUL IVP SCH (09:30)
[2022-01-25] MEDS: Folic Acid 1 MG TABLET PO SCH (10:14)
[2022-01-25] MEDS: Aspirin 81 MG TAB.CHEW PO SCH (10:15)
[2022-01-25] MEDS: MethylPREDNISolone 40 MG/ML VIAL IVP SCH (10:15)
[2022-01-25] MEDS: Thiamine (B-1) 100 MG TABLET PO SCH (10:15)
[2022-01-25] MEDS: Vancomycin 1,500 MG/265 ML IV.SOLN IVPB SCH (10:24)
[2022-01-25] MEDS: Budesonide/Formoterol 160/4.5 1 PUFF INH IH SCH ×2 (10:27→21:03)
[2022-01-25] MEDS: Azithromycin 500 MG in 0.9 % Sodium Chloride 250 ML IVPB SCH (17:28)
[2022-01-26 02:59] LABS: Mean Corpuscular Volume 93.5 fL (83.0-100.0)
[2022-01-26 03:00] LABS: Hematocrit 34.5 % (37.5-50.1); Hemoglobin 10.5 g/dL (12.9-16.9); Mean Corpuscular HGB Conc 30.4 g/dL (31.6-35.5); Mean Corpuscular Hemoglobin 28.5 pg (28.0-33.3); Mean Platelet Volume 9.5 fL (9.4-12.4); Platelet Count 687 K/mcL (140-400); Red Blood Count 3.69 M/mcL (4.19-5.50)
[2022-01-26 03:05] LABS: BUN/Creatinine Ratio 19 (6-26); Blood Urea Nitrogen 17 mg/dL (8-23); Carbon Dioxide 34 mEq/L (23-29); Chloride 98 mEq/L (98-107); Glucose 107 mg/dL (70-105); Osmolality,Calculated 280 (280-300); Potassium 4.8 mEq/L (3.5-5.1); Sodium 134 mEq/L (136-145); eGFR For African Americans > 60 (> 60); eGFR For Non-African Americans > 60 (> 60)
[2022-01-26 03:07] LABS: White Blood Count 34.1 K/mcL (4.3-11.1)
[2022-01-26 03:35] LABS: Hypochromasia Present (Not Present); Lymphocytes # 4.8 K/mcL (0.6-4.6); Monocytes # 0.7 K/mcL (0.0-1.3); Platelet Estimate Increased (Normal)
[2022-01-26] MEDS: Levalbuterol 1 PUFF INHALER IH SCH ×4 (04:05→22:25)
[2022-01-26] MEDS: *HR* Heparin 5,000 UNIT/ML VIAL SQ SCH ×2 (05:50→17:50)
[2022-01-26] MEDS: Aspirin 81 MG TAB.CHEW PO SCH (09:56)
[2022-01-26] MEDS: Folic Acid 1 MG TABLET PO SCH (09:56)
[2022-01-26] MEDS: MethylPREDNISolone 40 MG/ML VIAL IVP SCH (09:56)
[2022-01-26] MEDS: Thiamine (B-1) 100 MG TABLET PO SCH (09:57)
[2022-01-26] MEDS: Vancomycin 1,500 MG/265 ML IV.SOLN IVPB SCH (09:57)
[2022-01-26] MEDS: Budesonide/Formoterol 160/4.5 1 PUFF INH IH SCH ×2 (10:29→22:25)
[2022-01-26] MEDS ORDERED: cefTRIAXone 1,000 MG in 0.9 % Sodium Chloride 10 ML IVP ONE (11:17)
[2022-01-26] MEDS: Ampicillin/Sulbactam 1,500 MG in 0.9 % Sodium Chloride Mini Bag 100 ML IVPB SCH (17:50)
[2022-01-26] MEDS ORDERED: 0.9 % Sodium Chloride 500 ML IVC ONE (18:14)
[2022-01-26] MEDS ORDERED: 0.9 % Sodium Chloride 1,000 ML IVC SCH (19:30)
[2022-01-27] MEDS: Ampicillin/Sulbactam 1,500 MG in 0.9 % Sodium Chloride Mini Bag 100 ML IVPB SCH ×5 (01:02→23:14)
[2022-01-27] MEDS: Levalbuterol 1 PUFF INHALER IH SCH ×4 (04:24→22:41)
[2022-01-27] MEDS: *HR* Heparin 5,000 UNIT/ML VIAL SQ SCH ×2 (05:45→17:16)
[2022-01-27] MEDS ORDERED: cefTRIAXone 1,000 MG in 0.9 % Sodium Chloride 10 ML IVP SCH (09:00)
[2022-01-27 09:35] LABS: Hemoglobin 10.6 g/dL (12.9-16.9)
[2022-01-27 09:36] LABS: Hematocrit 34.4 % (37.5-50.1); Mean Corpuscular HGB Conc 30.8 g/dL (31.6-35.5); Mean Corpuscular Hemoglobin 29.3 pg (28.0-33.3); Mean Platelet Volume 9.3 fL (9.4-12.4); Platelet Count 649 K/mcL (140-400); Red Blood Count 3.62 M/mcL (4.19-5.50); Red Cell Distribution Width 15.2 % (11.5-14.5)
[2022-01-27 09:42] LABS: INR 1.1; Prothrombin Time 11.9 Seconds (9.4-12.1)
[2022-01-27 09:59] LABS: White Blood Count 30.7 K/mcL (4.3-11.1)
[2022-01-27] MEDS: Aspirin 81 MG TAB.CHEW PO SCH (10:06)
[2022-01-27] MEDS: Thiamine (B-1) 100 MG TABLET PO SCH (10:07)
[2022-01-27] MEDS: MethylPREDNISolone 40 MG/ML VIAL IVP SCH (10:07)
[2022-01-27] MEDS: Folic Acid 1 MG TABLET PO SCH (10:07)
[2022-01-27] MEDS: Vancomycin 1,500 MG/265 ML IV.SOLN IVPB SCH ×3 (10:21→18:05)
[2022-01-27] MEDS: Budesonide/Formoterol 160/4.5 1 PUFF INH IH SCH ×2 (11:10→22:40)
[2022-01-27 12:28] LABS: Anisocytosis 1+ (Not Present); Basophilic Stippling 1+ (Not Present); Eosinophils # 0.6 K/mcL (0.0-0.6); Lymphocytes # 1.2 K/mcL (0.6-4.6); Monocytes # 1.2 K/mcL (0.0-1.3); Neutrophils # 26.7 K/mcL (1.6-8.9); Platelet Estimate Increased (Normal); Poikilocytosis 1+ (Not Present)
[2022-01-27] MEDS ORDERED: PrednisoLONE Oral Soln 15 MG/5 ML UDC PO ONE (14:45)
[2022-01-27 15:30] LABS: Total Protein,Pleural Fluid 2.5 g/dL
[2022-01-27 16:42] LABS: Appearance of Pleural Fl Clear (Clear)
[2022-01-27 16:56] LABS: Basophils,Pleural Fluid 0 %; Eosinophils,Pleural Fluid 0 %
[2022-01-28] MEDS: Levalbuterol 1 PUFF INHALER IH SCH ×4 (03:43→22:38)
[2022-01-28 04:57] LABS: Hematocrit 36.2 % (37.5-50.1); Mean Corpuscular HGB Conc 30.4 g/dL (31.6-35.5); Mean Corpuscular Hemoglobin 28.8 pg (28.0-33.3); Mean Corpuscular Volume 94.8 fL (83.0-100.0); Platelet Count 602 K/mcL (140-400); Red Blood Count 3.82 M/mcL (4.19-5.50); Red Cell Distribution Width 15.2 % (11.5-14.5); White Blood Count 24.7 K/mcL (4.3-11.1)
[2022-01-28] MEDS: *HR* Heparin 5,000 UNIT/ML VIAL SQ SCH ×2 (05:02→17:12)
[2022-01-28] MEDS: Ampicillin/Sulbactam 1,500 MG in 0.9 % Sodium Chloride Mini Bag 100 ML IVPB SCH ×4 (05:02→23:47)
[2022-01-28 05:09] LABS: BUN/Creatinine Ratio 23 (6-26); Blood Urea Nitrogen 18 mg/dL (8-23); Calcium 9.1 mg/dL (8.6-10.3); Carbon Dioxide 38 mEq/L (23-29); Chloride 95 mEq/L (98-107); Glucose 88 mg/dL (70-105); Osmolality,Calculated 281 (280-300); Sodium 135 mEq/L (136-145); eGFR For African Americans > 60 (> 60); eGFR For Non-African Americans > 60 (> 60)
[2022-01-28 05:39] LABS: Lymphocytes # 0.5 K/mcL (0.6-4.6); Neutrophils # 22.2 K/mcL (1.6-8.9); Platelet Estimate Marked Increase (Normal)
[2022-01-28] MEDS ORDERED: PrednisoLONE Oral Soln 15 MG/5 ML UDC PO SCH (09:00)
[2022-01-28] MEDS: Folic Acid 1 MG TABLET PO SCH (09:15)
[2022-01-28] MEDS: predniSONE 20 MG TABLET PO SCH (09:16)
[2022-01-28] MEDS: Aspirin 81 MG TAB.CHEW PO SCH (09:16)
[2022-01-28] MEDS: Thiamine (B-1) 100 MG TABLET PO SCH (09:16)
[2022-01-28] MEDS: Budesonide/Formoterol 160/4.5 1 PUFF INH IH SCH ×2 (11:44→22:37)
[2022-01-28] MEDS ORDERED: *HR* FentaNYL (PF) 100 MCG/2 ML VIAL IVP PRN (12:59)
[2022-01-28] MEDS ORDERED: Lidocaine Viscous Oral Soln 15 ML SOLUTION MM PRN (12:59)
[2022-01-28] MEDS ORDERED: 0.9 % Sodium Chloride 500 ML IVC ONE (13:00)
[2022-01-28] MEDS: *HR* Midazolam HCl 5 MG/5 ML VIAL IVP PRN ×2 (13:40→13:45)
[2022-01-28] MEDS: Vancomycin 1,500 MG/265 ML IV.SOLN IVPB SCH (18:04)
[2022-01-29 03:20] LABS: Hematocrit 33.4 % (37.5-50.1); Hemoglobin 10.2 g/dL (12.9-16.9); Mean Corpuscular HGB Conc 30.5 g/dL (31.6-35.5); Mean Corpuscular Hemoglobin 28.6 pg (28.0-33.3); Mean Corpuscular Volume 93.6 fL (83.0-100.0); Mean Platelet Volume 9.5 fL (9.4-12.4); Platelet Count 544 K/mcL (140-400); Red Blood Count 3.57 M/mcL (4.19-5.50); Red Cell Distribution Width 15.1 % (11.5-14.5); White Blood Count 21.3 K/mcL (4.3-11.1)
[2022-01-29] MEDS: Levalbuterol 1 PUFF INHALER IH SCH ×4 (03:42→22:08)
[2022-01-29] MEDS: Ampicillin/Sulbactam 1,500 MG in 0.9 % Sodium Chloride Mini Bag 100 ML IVPB SCH ×4 (05:25→23:28)
[2022-01-29] MEDS: *HR* Heparin 5,000 UNIT/ML VIAL SQ SCH (05:25)
[2022-01-29] MEDS: Folic Acid 1 MG TABLET PO SCH (08:09)
[2022-01-29] MEDS: Aspirin 81 MG TAB.CHEW PO SCH (08:09)
[2022-01-29] MEDS: predniSONE 20 MG TABLET PO SCH (08:09)
[2022-01-29] MEDS: Thiamine (B-1) 100 MG TABLET PO SCH (08:09)
[2022-01-29] MEDS: Budesonide/Formoterol 160/4.5 1 PUFF INH IH SCH ×2 (11:08→22:08)
[2022-01-29] MEDS: Vancomycin 1,500 MG/265 ML IV.SOLN IVPB SCH (16:37)
[2022-01-29 20:42] LABS: Fluid Source for Cholesterol PLEURAL FLUID
[2022-01-30 03:33] LABS: Hematocrit 31.2 % (37.5-50.1); Hemoglobin 9.5 g/dL (12.9-16.9); Mean Corpuscular HGB Conc 30.4 g/dL (31.6-35.5); Mean Corpuscular Hemoglobin 28.9 pg (28.0-33.3); Mean Corpuscular Volume 94.8 fL (83.0-100.0); Mean Platelet Volume 9.3 fL (9.4-12.4); Platelet Count 496 K/mcL (140-400); Red Blood Count 3.29 M/mcL (4.19-5.50); Red Cell Distribution Width 15.3 % (11.5-14.5); White Blood Count 24.1 K/mcL (4.3-11.1)
[2022-01-30] MEDS: Levalbuterol 1 PUFF INHALER IH SCH ×4 (03:52→22:00)
[2022-01-30 04:02] LABS: BUN/Creatinine Ratio 25 (6-26); Blood Urea Nitrogen 21 mg/dL (8-23); Calcium 8.5 mg/dL (8.6-10.3); Carbon Dioxide 40 mEq/L (23-29); Chloride 93 mEq/L (98-107); Glucose 107 mg/dL (70-105); Magnesium 1.8 mg/dL (1.6-2.6); Osmolality,Calculated 283 (280-300); Potassium 4.5 mEq/L (3.5-5.1); Sodium 135 mEq/L (136-145); eGFR For African Americans > 60 (> 60); eGFR For Non-African Americans > 60 (> 60)
[2022-01-30] MEDS: Ampicillin/Sulbactam 1,500 MG in 0.9 % Sodium Chloride Mini Bag 100 ML IVPB SCH ×3 (05:14→23:44)
[2022-01-30] MEDS ORDERED: *HR* FentaNYL (PF) 100 MCG/2 ML VIAL ONE (06:31)
[2022-01-30] MEDS ORDERED: *HR* Propofol 200 MG/20 ML VIAL IVP ONE (06:31)
[2022-01-30] MEDS ORDERED: Ondansetron 4 MG/2 ML VIAL ONE (06:32)
[2022-01-30] MEDS ORDERED: *HR* Rocuronium Bromide 50 MG/5 ML VIAL ONE ×2 (06:32→09:13)
[2022-01-30] MEDS ORDERED: Lidocaine -MPF 2% 5 ML VIAL ONE (06:32)
[2022-01-30] MEDS: Budesonide/Formoterol 160/4.5 1 PUFF INH IH SCH ×2 (08:04→21:59)
[2022-01-30] MEDS ORDERED: Acetaminophen IV 1,000 MG/100 ML BAG IVPB ONE ×2 (09:08→09:10)
[2022-01-30] MEDS ORDERED: Ketorolac 30 MG/ML VIAL ONE (09:33)
[2022-01-30] MEDS ORDERED: *HR* HYDROcodone/Acet 5/325 mg TABLET PO PRN (09:50)
[2022-01-30 10:37] LABS: Adenovirus Not Detected (Not Detect); Bordetella Pertussis Not Detected (Not Detect); Chlamydophila pneumoniae Not Detected (Not Detect); Coronavirus 229E Not Detected (Not Detect); Coronavirus HKU1 Not Detected (Not Detect); Coronavirus NL63 Not Detected (Not Detect); Coronavirus OC43 Not Detected (Not Detect); Human Metapneumovirus Not Detected (Not Detect); Human Rhinovirus/Enterovirus Not Detected (Not Detect); Influenza A Subtype 2009 H1 Not Detected (Not Detect); Influenza B Not Detected (Not Detect); Mycoplasma pneumoniae Not Detected (Not Detect); Parainfluenza Virus 1 Not Detected (Not Detect); Parainfluenza Virus 2 Not Detected (Not Detect); Parainfluenza Virus 3 Not Detected (Not Detect); Parainfluenza Virus 4 Not Detected (Not Detect); Respiratory Syncytial Virus Not Detected (Not Detect); SARS-CoV-2 Not Detected (Not Detect)
[2022-01-30] MEDS ORDERED: Albuterol 2.5 MG/3 ML NEBULIZER ONE (10:39)
[2022-01-30] MEDS: Albuterol 2.5 MG/3 ML NEBULIZER IH ONE ×3 (10:43→16:02)
[2022-01-30 13:09] LABS: Cholesterol,Body Fluid 33 mg/dL
[2022-01-30 15:00] LABS: ABG Base Excess 8 mEq/L (-2 to 3); ABG HCO3 37 mEq/L (21-27); ABG Oxygen Saturation 92 % (95-98); ABG PCO2 77 mmHg (35-45); ABG PH 7.29 pH Units (7.32-7.45); ABG PO2 76 mmHg (85-104); ABG TCO2 40 mEq/L (20-26)
[2022-01-30] MEDS ORDERED: Ipratropium Neb 0.5 MG NEBULIZER IH PRN (16:34)
[2022-01-30] MEDS ORDERED: MOM Conc 10 ML UD.LIQ PO PRN (16:34)
[2022-01-30] MEDS ORDERED: Ondansetron 4 MG/2 ML VIAL IVP PRN (16:34)
[2022-01-30] MEDS ORDERED: Acetaminophen 325 MG TABLET PO PRN (16:34)
[2022-01-30] MEDS ORDERED: Naloxone 0.4 MG/ML INJ IVP PRN (16:34)
[2022-01-30] MEDS ORDERED: Vancomycin 1,500 MG/265 ML IV.SOLN IVPB SCH (18:00)
[2022-01-30] MEDS: Vancomycin 1,500 MG/265 ML IV.SOLN IVPB SCH (20:24)
[2022-01-31] MEDS: Levalbuterol 1 PUFF INHALER IH SCH ×4 (04:25→20:52)
[2022-01-31] MEDS: Ampicillin/Sulbactam 1,500 MG in 0.9 % Sodium Chloride Mini Bag 100 ML IVPB SCH ×4 (05:55→23:17)
[2022-01-31] MEDS: predniSONE 20 MG TABLET PO SCH (08:43)
[2022-01-31] MEDS: Aspirin 81 MG TAB.CHEW PO SCH (08:43)
[2022-01-31] MEDS: Budesonide/Formoterol 160/4.5 1 PUFF INH IH SCH ×2 (10:06→20:54)
[2022-01-31 10:29] LABS: Alanine Aminotransferase 21 Units/L (7-52); Albumin/Globulin Ratio 1.1 (1.1-2.2); Alkaline Phosphatase 68 Units/L (34-104); Aspartate Amino Transferase 20 Units/L (13-39); BUN/Creatinine Ratio 18 (6-26); Bilirubin,Total 0.3 mg/dL (0.3-1.0); Blood Urea Nitrogen 14 mg/dL (8-23); Carbon Dioxide 42 mEq/L (23-29); Chloride 93 mEq/L (98-107); Globulin 2.8 g/dL (2.4-3.5); Glucose 117 mg/dL (70-105); Osmolality,Calculated 282 (280-300); Potassium 4.7 mEq/L (3.5-5.1); Sodium 135 mEq/L (136-145); Total Protein 5.8 g/dL (6.4-8.9); eGFR For African Americans > 60 (> 60); eGFR For Non-African Americans > 60 (> 60)
[2022-01-31 11:49] LABS: Immature Granulocytes % 3.3 % (0-4); Mean Corpuscular Volume 97.4 fL (83.0-100.0); Mean Platelet Volume 9.2 fL (9.4-12.4)
[2022-01-31 11:50] LABS: Basophils # 0.1 K/mcL (0.0-0.2); Basophils % 0.2 %; Eosinophils # 0.1 K/mcL (0.0-0.6); Eosinophils % 0.2 %; Hematocrit 33.8 % (37.5-50.1); Lymphocytes # 0.8 K/mcL (0.6-4.6); Lymphocytes % 2.7 %; Mean Corpuscular HGB Conc 29.6 g/dL (31.6-35.5); Mean Corpuscular Hemoglobin 28.8 pg (28.0-33.3); Monocytes # 1.1 K/mcL (0.0-1.3); Monocytes % 3.6 %; Platelet Count 475 K/mcL (140-400); Red Blood Count 3.47 M/mcL (4.19-5.50); Red Cell Distribution Width 15.8 % (11.5-14.5); White Blood Count 29.7 K/mcL (4.3-11.1)
[2022-01-31 11:51] LABS: Neutrophils # 26.7 K/mcL (1.6-8.9)
[2022-01-31] MEDS: *HR* HYDROcodone/Acet 5/325 mg TABLET PO PRN (14:45)
[2022-01-31] MEDS: Vancomycin 1,500 MG/265 ML IV.SOLN IVPB SCH (20:31)
[2022-02-01 03:41] LABS: BUN/Creatinine Ratio 18 (6-26); Blood Urea Nitrogen 14 mg/dL (8-23); eGFR For African Americans > 60 (> 60); eGFR For Non-African Americans > 60 (> 60)
[2022-02-01] MEDS: Levalbuterol 1 PUFF INHALER IH SCH ×3 (04:31→15:56)
[2022-02-01] MEDS: Ampicillin/Sulbactam 1,500 MG in 0.9 % Sodium Chloride Mini Bag 100 ML IVPB SCH (05:58)
[2022-02-01] MEDS: predniSONE 20 MG TABLET PO SCH (08:14)
[2022-02-01] MEDS: Aspirin 81 MG TAB.CHEW PO SCH (08:14)
[2022-02-01 08:31] LABS: Basophils # 0.1 K/mcL (0.0-0.2); Basophils % 0.4 %; Eosinophils # 0.2 K/mcL (0.0-0.6); Eosinophils % 0.6 %; Hematocrit 34.6 % (37.5-50.1); Hemoglobin 10.5 g/dL (12.9-16.9); Immature Granulocytes % 3.4 % (0-4); Lymphocytes # 1.7 K/mcL (0.6-4.6); Lymphocytes % 6.2 %; Mean Corpuscular HGB Conc 30.3 g/dL (31.6-35.5); Mean Corpuscular Hemoglobin 29.3 pg (28.0-33.3); Mean Corpuscular Volume 96.6 fL (83.0-100.0); Mean Platelet Volume 9.2 fL (9.4-12.4); Monocytes # 1.3 K/mcL (0.0-1.3); Monocytes % 4.7 %; Neutrophils # 23.6 K/mcL (1.6-8.9); Platelet Count 525 K/mcL (140-400); Red Blood Count 3.58 M/mcL (4.19-5.50); Red Cell Distribution Width 15.8 % (11.5-14.5); Segmented Neutrophils % 84.7 %; White Blood Count 27.8 K/mcL (4.3-11.1)
[2022-02-01 09:01] LABS: BUN/Creatinine Ratio 16 (6-26); Blood Urea Nitrogen 13 mg/dL (8-23); Calcium 8.7 mg/dL (8.6-10.3); Carbon Dioxide 40 mEq/L (23-29); Chloride 92 mEq/L (98-107); Glucose 98 mg/dL (70-105); Magnesium 1.9 mg/dL (1.6-2.6); Osmolality,Calculated 278 (280-300); Potassium 4.1 mEq/L (3.5-5.1); Sodium 134 mEq/L (136-145); eGFR For African Americans > 60 (> 60); eGFR For Non-African Americans > 60 (> 60)
[2022-02-01] MEDS: *HR* HYDROcodone/Acet 5/325 mg TABLET PO PRN ×2 (09:49→21:05)
[2022-02-01] MEDS: Budesonide/Formoterol 160/4.5 1 PUFF INH IH SCH ×2 (10:47→22:08)
[2022-02-01] MEDS ORDERED: Iopamidol - 370 500 ML MLS IVP ONE (11:26)
[2022-02-01] MEDS: Piperacillin/Tazobactam 3.375 GM in 0.9 % Sodium Chloride Mini Bag 100 ML IVPB SCH ×2 (11:54→20:29)
[2022-02-01] MEDS: Furosemide 40 MG/4 ML VIAL IVP SCH ×2 (11:54→20:30)
[2022-02-01] MEDS: Acetylcysteine 10% 2 ML INHSOL IH SCH ×2 (15:44→22:09)
[2022-02-01] MEDS: Vancomycin 1,500 MG/265 ML IV.SOLN IVPB SCH (20:30)
[2022-02-01] MEDS: Levalbuterol Neb 1.25 MG/3 ML IH SCH (22:08)
[2022-02-02 03:08] LABS: Basophils # 0.1 K/mcL (0.0-0.2); Basophils % 0.2 %; Eosinophils % 0.2 %; Hematocrit 32.3 % (37.5-50.1); Hemoglobin 9.9 g/dL (12.9-16.9); Immature Granulocytes % 2.6 % (0-4); Lymphocytes # 1.2 K/mcL (0.6-4.6); Lymphocytes % 4.9 %; Mean Corpuscular HGB Conc 30.7 g/dL (31.6-35.5); Mean Corpuscular Volume 94.7 fL (83.0-100.0); Mean Platelet Volume 9.2 fL (9.4-12.4); Monocytes # 1.2 K/mcL (0.0-1.3); Monocytes % 4.9 %; Neutrophils # 21.6 K/mcL (1.6-8.9); Platelet Count 464 K/mcL (140-400); Red Blood Count 3.41 M/mcL (4.19-5.50); Red Cell Distribution Width 15.7 % (11.5-14.5); Segmented Neutrophils % 87.2 %; White Blood Count 24.8 K/mcL (4.3-11.1)
[2022-02-02 03:09] LABS: Eosinophils # 0.1 K/mcL (0.0-0.6)
[2022-02-02] MEDS: Piperacillin/Tazobactam 3.375 GM in 0.9 % Sodium Chloride Mini Bag 100 ML IVPB SCH ×3 (03:27→20:18)
[2022-02-02 03:31] LABS: Alanine Aminotransferase 24 Units/L (7-52); Albumin 2.8 g/dL (3.5-5.7); Alkaline Phosphatase 78 Units/L (34-104); Aspartate Amino Transferase 19 Units/L (13-39); BUN/Creatinine Ratio 19 (6-26); Bilirubin,Total 0.3 mg/dL (0.3-1.0); Blood Urea Nitrogen 16 mg/dL (8-23); Calcium 8.5 mg/dL (8.6-10.3); Carbon Dioxide 44 mEq/L (23-29); Chloride 90 mEq/L (98-107); Globulin 2.7 g/dL (2.4-3.5); Glucose 104 mg/dL (70-105); Magnesium 1.7 mg/dL (1.6-2.6); Osmolality,Calculated 281 (280-300); Phosphorous 3.4 mg/dL (2.7-4.5); Sodium 135 mEq/L (136-145); Total Protein 5.5 g/dL (6.4-8.9); eGFR For African Americans > 60 (> 60); eGFR For Non-African Americans > 60 (> 60)
[2022-02-02] MEDS: Levalbuterol Neb 1.25 MG/3 ML IH SCH ×4 (04:38→22:34)
[2022-02-02] MEDS: predniSONE 20 MG TABLET PO SCH (09:16)
[2022-02-02] MEDS: Aspirin 81 MG TAB.CHEW PO SCH (09:16)
[2022-02-02] MEDS: Furosemide 40 MG/4 ML VIAL IVP SCH (09:16)
[2022-02-02] MEDS: Acetylcysteine 10% 2 ML INHSOL IH SCH ×2 (09:47→22:34)
[2022-02-02] MEDS: Budesonide/Formoterol 160/4.5 1 PUFF INH IH SCH ×2 (09:48→22:34)
[2022-02-02 18:03] LABS: Lactate Dehydrogenase 118 Units/L (140-271); Total Protein 5.9 g/dL (6.4-8.9)
[2022-02-02] MEDS: Vancomycin 1,500 MG/265 ML IV.SOLN IVPB SCH (20:16)
[2022-02-02] MEDS: *HR* HYDROcodone/Acet 5/325 mg TABLET PO PRN (21:31)
[2022-02-03] MEDS: Piperacillin/Tazobactam 3.375 GM in 0.9 % Sodium Chloride Mini Bag 100 ML IVPB SCH ×3 (03:34→20:35)
[2022-02-03] MEDS: Levalbuterol Neb 1.25 MG/3 ML IH SCH ×4 (03:40→22:40)
[2022-02-03 05:56] LABS: Basophils # 0.1 K/mcL (0.0-0.2); Basophils % 0.3 %; Eosinophils # 0.1 K/mcL (0.0-0.6); Eosinophils % 0.8 %; Hematocrit 32.7 % (37.5-50.1); Hemoglobin 10.3 g/dL (12.9-16.9); Immature Granulocytes % 1.6 % (0-4); Lymphocytes # 1.5 K/mcL (0.6-4.6); Lymphocytes % 8.1 %; Mean Corpuscular HGB Conc 31.5 g/dL (31.6-35.5); Mean Corpuscular Hemoglobin 29.3 pg (28.0-33.3); Mean Corpuscular Volume 93.2 fL (83.0-100.0); Mean Platelet Volume 9.3 fL (9.4-12.4); Monocytes # 0.9 K/mcL (0.0-1.3); Neutrophils # 15.4 K/mcL (1.6-8.9); Platelet Count 426 K/mcL (140-400); Red Blood Count 3.51 M/mcL (4.19-5.50); Red Cell Distribution Width 15.8 % (11.5-14.5); Segmented Neutrophils % 84.2 %; White Blood Count 18.3 K/mcL (4.3-11.1)
[2022-02-03 06:20] LABS: Alanine Aminotransferase 22 Units/L (7-52); Albumin/Globulin Ratio 1.3 (1.1-2.2); Alkaline Phosphatase 64 Units/L (34-104); Aspartate Amino Transferase 18 Units/L (13-39); BUN/Creatinine Ratio 16 (6-26); Bilirubin,Direct 0.1 mg/dL (0.0-0.2); Bilirubin,Indirect 0.3 mg/dL (0.0-1.0); Bilirubin,Total 0.4 mg/dL (0.3-1.0); Blood Urea Nitrogen 16 mg/dL (8-23); Calcium 8.4 mg/dL (8.6-10.3); Carbon Dioxide 45 mEq/L (23-29); Chloride 89 mEq/L (98-107); Globulin 2.4 g/dL (2.4-3.5); Glucose 99 mg/dL (70-105); Osmolality,Calculated 283 (280-300); Potassium 3.6 mEq/L (3.5-5.1); Sodium 136 mEq/L (136-145); Total Protein 5.4 g/dL (6.4-8.9); eGFR For African Americans > 60 (> 60); eGFR For Non-African Americans > 60 (> 60)
[2022-02-03] MEDS: Aspirin 81 MG TAB.CHEW PO SCH (07:52)
[2022-02-03] MEDS ORDERED: acetaZOLAMIDE 375 MG in Water for inj. (sterile) 3.75 ML IVP ONE (08:11)
[2022-02-03] MEDS ORDERED: acetaZOLAMIDE 250 MG TABLET PO ONE (09:31)
[2022-02-03 11:01] LABS: VBG HCO3 39 mEq/L (21-27); VBG PCO2 61 mmHg (41-51); VBG PH 7.42 pH Units (7.32-7.42); VBG PO2 181 mmHg (25-50)
[2022-02-03] MEDS: Budesonide/Formoterol 160/4.5 1 PUFF INH IH SCH ×2 (11:01→22:43)
[2022-02-03] MEDS: Acetylcysteine 10% 2 ML INHSOL IH SCH ×2 (11:02→22:40)
[2022-02-03] MEDS ORDERED: Furosemide 40 MG/4 ML VIAL IVP SCH (17:00)
[2022-02-03 18:51] LABS: Appearance of Pleural Fl Hazy (Clear)
[2022-02-03 18:55] LABS: RBC,Pleural Fluid < 2000 RBC/mcL
[2022-02-03 18:59] LABS: Basophils,Pleural Fluid 0 %; Eosinophils,Pleural Fluid 0 %
[2022-02-03] MEDS: Vancomycin 1,500 MG/265 ML IV.SOLN IVPB SCH (20:34)
[2022-02-03] MEDS ORDERED: *HR* Heparin 5,000 UNIT/ML VIAL SQ SCH (22:00)
[2022-02-03] MEDS ORDERED: Acetaminophen 325 MG TABLET PO PRN (23:06)
[2022-02-03] MEDS ORDERED: Docusate Oral Soln 100 MG/10 ML UDC PO PRN (23:08)
[2022-02-03] MEDS ORDERED: Ipratropium Neb 0.5 MG NEBULIZER IH PRN (23:11)
[2022-02-03] MEDS ORDERED: Naloxone 0.4 MG/ML INJ IVP PRN (23:12)
[2022-02-03] MEDS ORDERED: MOM Conc 10 ML UD.LIQ PO PRN (23:12)
[2022-02-04] MEDS: Levalbuterol Neb 1.25 MG/3 ML IH SCH ×4 (03:38→22:47)
[2022-02-04] MEDS: *HR* Heparin 5,000 UNIT/ML VIAL SQ SCH ×3 (05:56→22:54)
[2022-02-04] MEDS ORDERED: Piperacillin/Tazobactam 3.375 GM in 0.9 % Sodium Chloride Mini Bag 100 ML IVPB SCH (08:00)
[2022-02-04] MEDS: Furosemide 40 MG/4 ML VIAL IVP SCH ×2 (09:33→16:20)
[2022-02-04] MEDS: Aspirin 81 MG TAB.CHEW PO SCH (09:33)
[2022-02-04] MEDS: Budesonide/Formoterol 160/4.5 1 PUFF INH IH SCH ×2 (09:57→22:46)
[2022-02-04 16:32] LABS: Total Protein,Pleural Fluid 2.2 g/dL
[2022-02-04] MEDS ORDERED: Vancomycin 1,500 MG/265 ML IV.SOLN IVPB SCH (20:00)
[2022-02-04] MEDS: *HR* HYDROcodone/Acet 5/325 mg TABLET PO PRN (22:55)
[2022-02-05] MEDS: Levalbuterol Neb 1.25 MG/3 ML IH SCH ×3 (04:07→15:25)
[2022-02-05] MEDS: *HR* Heparin 5,000 UNIT/ML VIAL SQ SCH ×2 (06:36→14:27)
[2022-02-05] MEDS: *HR* HYDROcodone/Acet 5/325 mg TABLET PO PRN (06:40)
[2022-02-05] MEDS: Furosemide 40 MG/4 ML VIAL IVP SCH ×2 (08:57→17:30)
[2022-02-05] MEDS: Aspirin 81 MG TAB.CHEW PO SCH (08:58)
[2022-02-05] MEDS: Budesonide/Formoterol 160/4.5 1 PUFF INH IH SCH (09:55)
[2022-02-05 10:04] LABS: Basophils % 0.1 %; Eosinophils # 0.1 K/mcL (0.0-0.6); Eosinophils % 0.4 %; Hematocrit 29.9 % (37.5-50.1); Hemoglobin 9.3 g/dL (12.9-16.9); Immature Granulocytes % 0.6 % (0-4); Lymphocytes # 0.8 K/mcL (0.6-4.6); Lymphocytes % 3.8 %; Mean Corpuscular HGB Conc 31.1 g/dL (31.6-35.5); Mean Corpuscular Hemoglobin 29.2 pg (28.0-33.3); Monocytes # 1.4 K/mcL (0.0-1.3); Monocytes % 6.9 %; Neutrophils # 18.4 K/mcL (1.6-8.9); Platelet Count 409 K/mcL (140-400); Red Blood Count 3.18 M/mcL (4.19-5.50); Segmented Neutrophils % 88.2 %; White Blood Count 20.8 K/mcL (4.3-11.1)
[2022-02-05 10:19] LABS: BUN/Creatinine Ratio 21 (6-26); Blood Urea Nitrogen 16 mg/dL (8-23); Calcium 8.3 mg/dL (8.6-10.3); Carbon Dioxide 37 mEq/L (23-29); Chloride 93 mEq/L (98-107); Glucose 118 mg/dL (70-105); Lactate Dehydrogenase 134 Units/L (140-271); Osmolality,Calculated 282 (280-300); Potassium 3.3 mEq/L (3.5-5.1); Sodium 135 mEq/L (136-145); Total Protein 5.5 g/dL (6.4-8.9); eGFR For African Americans > 60 (> 60); eGFR For Non-African Americans > 60 (> 60)
[2022-02-05] MEDS ORDERED: Lidocaine -MPF 1% 5 ML AMPUL INFILT ONE (14:21)
[2022-02-05 15:32] LABS: Influenza A PCR Negative (Negative); Influenza B PCR Negative (Negative); Resp. Syncytial Virus PCR Negative (Negative)
[2022-02-05 15:40] LABS: SARS-CoV-2 by PCR (In House) Negative (Negative)
[2022-02-05 17:06] VITALS: PULSE 83
[2022-02-05 19:09] VITALS: BP 103/50; TEMP 98.7; O2SAT 96
[2022-02-05] MEDS ORDERED: Vancomycin 1,500 MG/265 ML IV.SOLN IVPB SCH (23:00)
== END 2022-02-05 22:23 | DRG 853 ==
LOC: EMEROOARM 14:07 → 2NENU 14:07 → SUATTDRO 01-20 17:12 → 2NNU 01-30 15:11 → 2ANU 02-03 22:16
PROVIDERS: ADMIT Internal Medicine; ATTEND Internal Medicine